=== PATIENT | male | born 1995 | race Hispanic/Latino ===

== ENCOUNTER 2019-12-30 01:26 | Inpatient (IN) | payer SELFPAY ==
[2019-12-30] VITALS (15 sets, daily range): BP systolic 117–154; BP diastolic 70–90; PULSE 90–136; RESP 12–22; TEMP 36.9–37.1; O2SAT 98–100; BMI 28.2
--- NOTE | ~2019-12-30 | XR_ITS ---
EXAMINATION: XR chest 1V portable DATE: 12/30/2019 03:22 INDICATION: Right flank pain. TECHNIQUE: A single frontal view of the chest was obtained. COMPARISON: Chest CT 12/30/2019 FINDINGS: The chest demonstrates clear lungs without pneumonia, pleural effusion, or pneumothorax. Th e heart size is normal. IMPRESSION: 1. No acute cardiopulmonary disease. Reviewed, dictated and finalized at location A.
--- NOTE | ~2019-12-30 | CT_ITS ---
EXAMINATION: CTA chest PE abdomen pel DATE: 12/30/2019 04:51 INDICATION: Chest pain. Right flank pain. Nausea and vomiting. TECHNIQUE: Computed tomography angiography (CTA) of the chest was performed with 100 mL Omnipaque-350 intravenous contrast timed to evaluate the pulmonary arteries. Coronal maximum intensity projection 3D-reconstructions were created by the technologist. Computed tomography (CT) of the abdomen and pelv is was performed with intravenous contrast. Automated exposure control and iterative reconstruction t echnique were employed. The dose-length product was 1781.31 mGy-cm. COMPARISON: None. FINDINGS: CTA chest: The lungs are clear without pneumonia or pleural effusion. The heart size is normal. No pe ricardial effusion. There is no pulmonary embolus. The bones are unremarkable. CT abdomen and pelvis: The liver demonstrates steatosis in the hilum. The gallbladder, spleen, adrena l glands, and kidneys are normal. There is fat stranding around the head of the pancreas and proximal duodenum. The bladder is distended. There are no dilated loops of bowel. The appendix is normal. The re are no pathologically enlarged lymph nodes. There is no free intraperitoneal fluid. The bones are unremarkable. IMPRESSION: 1. Inflammation involving the pancreas and proximal duodenum, which may be secondary to acute interst itial pancreatitis or duodenitis. Correlate with lipase. 2. No pulmonary embolus. Reviewed, dictated and finalized at location A. IMPRESSION: 1. Inflammation involving the pancreas and proximal duodenum, which may be seco ndary to acute interstitial pancreatitis or duodenitis. Correlate with lipase. 2. No pulmonary embolus.
[2019-12-30 02:29] LABS: Basophils Absolute Auto 0.1 K/mm3 (0.0-0.1); Basophils Percent Auto 0.4 % (0.2-1.2); Eosinophils Percent Auto 0.1 % (0-4.4); Hemoglobin 17.8 g/dL (14.0-18.0); Immature Granulocyte Percent A 0.8 % (0-0.5); Lymphocytes Absolute Auto 2.32 K/mm3 (0.9-3.2); Lymphocytes Percent Auto 18.8 % (18.3-44.2); Mean Corpuscular HGB Conc 34.2 g/dl (32-36); Mean Corpuscular Hemoglobin 27.9 pg (26-34); Mean Corpuscular Volume 81.4 fl (80-100); Mean Platelet Volume 12.3 fl (7.4-10.4); Monocytes Absolute Auto 0.7 K/mm3 (0.1-0.6); Monocytes Percent Auto 5.7 % (2.6-8.5); Neutrophils Absolute Auto 9.2 K/mm3 (1.3-6.7); Neutrophils Percent Auto 74.2 % (45.5-73.1); Platelet Count Result 364 k/mm3 (150-375); Red Blood Count 6.39 M/mm3 (4.6-6.20); Red Cell Distribution Width 13.3 % (11.5-14.5); White Blood Count 12.4 K/mm3 (4.5-10.0)
[2019-12-30 02:38] LABS: Add Urine Microscopic? YES; Appearance Urine Clear (Clear); Bilirubin Urine Negative (Negative); Blood Urine 1+ (Negative); Color Urine Straw (Yellow); Glucose Urine UA 3+ mg/dL (Negative); Ketones Urine 2+ mg/dL (Negative); Leukocyte Esterase Ur Negative LEU/UL (Negative); Mucus Urine Rare /lpf; Nitrate Urine Negative (Negative); Protein Urine 3+ mg/dL (Negative); Specific Grav Ur 1.023 (1.001-1.035); Squamous Epithelial Cell Urine Rare /hpf (Few); Urobilinogen Urine Negative mg/dL (<2.0); WBC Urine 0-3 /hpf
--- NOTE | 2019-12-30 02:50 | ECG_ITS ---
Measurements Intervals [place] Rate: 120 P: 74 CO: 129 QRS: 64 QRSD: 98 T: 22 QT: 340 QTc: 481 Interpretive Statements SINUS TACHYCARDIA BORDERLINE ST-T WAVE ABNORMALITY- INFERIOR LEADS BASELINE WANDER- I, II, AVR, AVL, AVF, V1-V6 ABNORMAL ECG Electronically Signed On 12-30-2019 7:14:03 CDT by Ho Hernandez D.O.
--- NOTE | 2019-12-30 02:51 | ED.WEAKNESS ---
HPI - Weakness General Chief complaint: Weakness Stated complaint: sharp rt abd, weakness, vomiting Time Seen by Provider: 12/30/19 02:03 Source: patient Mode of arrival: ambulatory Limitations: clinical condition History of Present Illness HPI Narrative: This patient is a 24 year old male with history of insulin dependent DM who presents for evaluation of right flank pain. Patient states he has had right upper abdominal pain radiating to his back constantly for 2 weeks. His pain has gradually worsened. He denies any exacerbatin or alleviating factors. He states he has been having associated nausea and vomiting but he denies cough, fever or chills. He has history of diabetes but he has not taken any medication in 2 years. Complaint: generalized weakness Related Data Allergies Allergy/AdvReac Type Severity Reaction Status Date / Time No Known Allergies Allergy Unverified 07/24/15 20:18 Review of Systems Review of Systems: All systems reviewed & are unremarkable except as noted in HPI and below Constitutional: Constitutional: Denies chills, Denies fever(s) and Reports weakness ENT: Denies sore throat Cardiovascular: Cardiovascular: Denies chest pain Respiratory: Respiratory: Denies cough and Denies dyspnea Gastrointestinal: Gastrointestinal: Reports abdominal pain, Denies diarrhea, Reports nausea and Reports vomiting Genitourinary: Genitourinary: Denies hematuria and Reports oliguria Musculoskeletal: Musculoskeletal: Reports back pain [facility] Past Medical History Medical History (Updated 12/30/19 @ 06:31 by Ewa Lemons MD) Diabetes mellitus Surgical History Surgical History (Updated 12/30/19 @ 02:56 by Ewa Lemons MD) No pertinent past surgical history Exam Const: General: ill appearing acutely Orientation/consciousness: patient oriented x3 Other: lethargic HENMT: Head: normocephalic and atraumatic Face and sinus: face symmetric Mouth: Yes dry mucous membranes Throat: posterior oropharynx normal, tonsils normal and uvula midline Eyes: Pupils: Equal, round and reactive pupils present EOM: EOMs intact bilaterally Neck: Neck: no lymphadenopathy Chest: Chest palpation & inspection: normal inspection of the chest Resp: Effort & Inspection: normal respiratory effort and no retractions Auscultation: clear to auscultation bilaterally GI: GI Palp: Yes Soft to palpation, Yes Tenderness to palpation present (GI) (epigastric), No Guarding due to palpation present (GI), No Rigid due to palpation and No Hernia present Back/Spine/Pelvis: Back: no CVA tenderness Skin: Rashes: no rashes Neuro: General: patient oriented x3 and moves all extremities Course Course Emergency Course: Patient presented with right flank and DKA. He was stuck multiple times due lab stating blood rejected . Print out labs sent to me appear consistent with DKA and pancreatitis. Consultations Consultation #1: I have discsused case with Dr. Jeo who accepts to ICU for DKA Date: 12/30/19 Time: 05:53 Consultation #2: I discussed case with Dr. Angeles who accepts to ICU for DKA Date: 12/30/19 Time: 06:22 Vital Signs Vital signs: Vital Signs Temperature 98.4 F 12/30/19 01:31 Pulse Rate 136 H 12/30/19 01:31 Respiratory Rate 12/30/19 01:31 Blood Pressure 130/77 12/30/19 01:31 Pulse Oximetry 100 12/30/19 01:31 Temperature 98.4 F 12/30/19 01:31 Pulse Rate 104 H 12/30/19 07:21 Respiratory Rate 12/30/19 07:21 Blood Pressure 126/85 12/30/19 07:21 Pulse Oximetry 100 12/30/19 07:21 MDM - Weakness Lab Data Attestation: I reviewed the patient's lab results. Lab results narrative: Labs faxed show lipase of 1164, glucose 321, potassium 5.0 , sodium 136, Chloride 107, CO2 less than 5. Result diagrams: 12/30/19 03:20 12/30/19 04:40 Labs: Lab Results 12/30/19 12/30/19 12/30/19 Range/Units 02:11 02:11 03:06 WBC 12.4 H (4.5-10.0)
[2019-12-30 03:09] LABS: Glucose Point of Care 293 (65-105)
[2019-12-30 03:12] LABS: Alveolar/Arterial O2 Gradient 9.1 mmHg; Base Excess ABG -20.6 mEq/l (+/-2.0); Carboxyhemoglobin 0.8 % THb (0-2.0); Fractional Inspired Oxygen 21 %; HCO3 ABG 5.2 mEq/l (22.0-26.0); Methemoglobin ABG 0.4 %THb (0-1.5); Oxygen Content ABG 22.1 %vol (16.0-22.0); Oxygen Saturation ABG 97.7 % (95.0-100.0); Oxyhemoglobin 96.8 % THb (90.0-100.0); PO2 ABG 123.4 mmHg (80.0-100.0); PO2 FiO2 Ratio Arterial Blood 5.88 %; Total Hemoglobin 16.1 g/dL (12.0-18.0)
[2019-12-30] MEDS: LACTATED RINGERS 1,000 ML 999 ML IV CONT ×4 (03:16→09:15)
[2019-12-30] MEDS: MORPHINE SULFATE 4 MG/ML INJ IV PUSH (03:16)
[2019-12-30 03:17] LABS: Device ROOM AIR; Modified Allen's Test Pass; PCO2 ABG 14.4 mmHg (35.0-45.0); Site Drawn RIGHT RADIAL; pH ABG 7.174 (7.350-7.450)
[2019-12-30] MEDS: ONDANSETRON INJ 4 MG/2 ML VIAL IV PUSH ×2 (03:17→11:09)
--- NOTE | 2019-12-30 03:33 | PC.NURSE ---
Addendum entered by Nallely Atkinson 12/30/19 03:34: NOTIFIED OF THIS. ASKING FOR PRINT OUT OF RESULTS TO TEST. Original Note: PT BLOOD TEST REJECTED THREE TIMES. PHLEBOTOMY ALSO CAME UP TO DRAW AND WAS UNSUCCESSFUL AT COLLECTING SPECIMEN.
[2019-12-30 03:43] LABS: Lactic Acid Reflex 1.5 mmol/L (0.7-2.1)
--- NOTE | 2019-12-30 04:04 | PC.NURSE ---
PT BLOOD SPECIMEN REJECTED AGAIN. NOTIFIED.
[2019-12-30 04:10] LABS: Basophils Absolute Auto 0.1 K/mm3 (0.0-0.1); Basophils Percent Auto 0.4 % (0.2-1.2); Eosinophils Percent Auto 0.1 % (0-4.4); Hematocrit 48.3 % (42.0-52.0); Hemoglobin 16.9 g/dL (14.0-18.0); Immature Granulocyte Percent A 0.8 % (0-0.5); Lymphocytes Absolute Auto 1.57 K/mm3 (0.9-3.2); Lymphocytes Percent Auto 13.3 % (18.3-44.2); Mean Corpuscular Hemoglobin 27.9 pg (26-34); Mean Corpuscular Volume 79.8 fl (80-100); Mean Platelet Volume 12.2 fl (7.4-10.4); Monocytes Absolute Auto 0.6 K/mm3 (0.1-0.6); Monocytes Percent Auto 5.3 % (2.6-8.5); Neutrophils Absolute Auto 9.4 K/mm3 (1.3-6.7); Neutrophils Percent Auto 80.1 % (45.5-73.1); Platelet Count Result 384 k/mm3 (150-375); Red Blood Count 6.05 M/mm3 (4.6-6.20); Red Cell Distribution Width 13.3 % (11.5-14.5); White Blood Count 11.8 K/mm3 (4.5-10.0)
[2019-12-30 04:10] LABS: INR 1.1; Prothrombin Time 13.5 Seconds (11.1-14.7)
[2019-12-30 04:11] LABS: Partial Thromboplastin Time 30.3 SECONDS (22.3-36.8)
[2019-12-30 04:14] LABS: Hemoglobin A1C > 14.0 % (<5.7)
[2019-12-30 04:42] LABS: Estimated CRCL calculation 187 ml/min; Estimated Glomerular Filt Rate > 60
[2019-12-30 05:10] LABS: Glucose Point of Care 276 (65-105)
[2019-12-30] MEDS: INSULIN HUMAN REGULAR (*BKC) 100 UNITS in SODIUM CHLORIDE 0.9% IV 99 ML IV CONT (05:15)
[2019-12-30 06:29] LABS: Glucose Point of Care 259 (65-105)
[2019-12-30] MEDS: KCL 20 MEQ/D5/0.45% SOD CHL 1,000 ML 150 ML IV CONT (07:46)
[2019-12-30 07:54] LABS: Glucose Point of Care 192 (65-105)
--- NOTE | 2019-12-30 08:09 | ADMGEN ---
This patient, Vick Law, was admitted to Intensive Care Unit-11. Patient/family oriented to hospital policies and general routines including ID bracelet, bed and alarms, visiting hours, pain management, procedures, bathroom and other care routines, personal items, smoking policy, room service/diet, and visiting hours. Valuables list has been completed. Information on how to activate the Rapid Response Team has been discussed. Patient/Family are encouraged to report perceived risks to care and to ask questions if they do not understand what they are told or what they should do.
[2019-12-30] MEDS: SODIUM CHLORIDE 0.9% IV 1,000 ML 200 ML IV CONT (08:41)
[2019-12-30 09:12] LABS: Glucose Point of Care 217 (65-105)
[2019-12-30 10:08] LABS: Glucose Point of Care 224 (65-105)
[2019-12-30 11:06] LABS: Glucose Point of Care 187 (65-105)
--- NOTE | 2019-12-30 11:43 | PM.IMHP ---
H&P: HPI History of Present Illness Chief complaint: DKA,PANCREATITIS Narrative: Vick Law is a 24 year old male with known type 1 diabetes has been taking 40 units of long-acting insulin daily but not checking his blood sugars routinely and not following a diabetic diet. For the past 2 weeks he has been having intermittent right flank to upper quadrant epigastric pain radiating through to his back. Pain was [id number] initially. Became moderate to severe. Intermittent nausea vomiting. Worse with eating. Not worse with activity. No fevers chills or sweats. No cough or congestion. No recent travel. Because the pain worsen on the evening of 12/28 without remitting and with more persistent nausea vomiting, he presented to the emergency department. 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, 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 Gender identity (if verbalized by the patient): Male Spiritual care concerns: No Meds Home Medications and Allergies Allergies Allergy/AdvReac Type Severity Reaction Status Date / Time No Known Allergies Allergy Unverified 07/24/15 20:18 Vital Signs Vital Signs - 24 hr 12/30/19 01:31 12/30/19 03:16 12/30/19 04:15 Temperature 98.4 F Pulse Rate 136 H 122 H 101 H Respiratory Rate 20 22 H 20 Blood Pressure 130/77 137/89 130/76 Pulse Oximetry 100 100 99 12/30/19 05:34 12/30/19 06:07 12/30/19 06:54 Temperature Pulse Rate 111 H 114 H 103 H Respiratory Rate 20 20 20 Blood Pressure 137/80 117/70 133/83 Pulse Oximetry 100 100 98 12/30/19 07:21 12/30/19 08:00 12/30/19 10:00 Temperature 98.5 F Pulse Rate 104 H 114 H 98 Respiratory Rate 20 18 18 Blood Pressure 126/85 135/85 129/74 Pulse Oximetry 100 100 100 Exam Narrative: Exam Narrative: HEENT: EOMI, PERRL, sclerae nonicteric, pharyngeal mucosa pink and intact NECK: No JVD, adenopathy, or thyromegaly CHEST: Clear to auscultation. Normal effort. HEART: NL S1/S2, regular, no murmur ABDOMEN: BS+, soft,TENDER EPIGASTRIUM, no mass EXTREMITIES: No cyanosis, edema, or clubbing NEUROLOGIC: CN intact and symmetric to inspection. MUSCULOSKELETAL: Tone and strength symmetric. PSYCH: Alert. Oriented to person, place, and time. H&P: Results Labs Labs: Short CBC 12/30/19 12/30/19 Range/Units 02:11 03:20 WBC 12.4 H 11.8 H (4.5-10.0) K/mm3 Hgb 17.8 16.9 (14.0-18.0) g/dL Hct 52.0 48.3 (42.0-52.0) % Plt Count 364 384 H (150-375) k/mm3 BMP 12/30/19 04:40 Creatinine 0.50 Urine 12/30/19 Range/Units 02:11 Urine Color Straw (Yellow) Urine Appearance Clear (Clear) Urine pH 6.0 (5.0-9.0) Ur Specific [place] 1.023 (1.001-1.035) Urine Protein 3+ H (Negative) mg/dL Urine Glucose (UA) 3+ H (Negative) mg/dL Assessment and Plan Assessment and plan (1) DKA (diabetic ketoacidoses): Qualifiers: Diabetes mellitus complication detail: without coma Diabetes mellitus type: type 1 Qualified Code(s): E10.10 - Type 1 diabetes mellitus with ketoacidosis without coma Code(s): E11.10 - Type 2 diabetes mellitus with ketoacidosis without coma Status: Acute Assessment and Pl
[2019-12-30 12:05] LABS: Glucose Point of Care 184 (65-105)
--- NOTE | 2019-12-30 12:35 | WPDCNINT ---
Assessment and Plan Assessment and plan (1) DKA (diabetic ketoacidoses): Qualifiers: Diabetes mellitus complication detail: without coma Diabetes mellitus type: type 1 Qualified Code(s): E10.10 - Type 1 diabetes mellitus with ketoacidosis without coma Code(s): E11.10 - Type 2 diabetes mellitus with ketoacidosis without coma Status: Acute Assessment and Plan: patient presented with nausea, vomiting,Abdominal pain. Was found to have elevated blood sugars, elevated beta hydroxybutyrate, positive urine ketones. Patient with metabolic acidosis, was diagnosed with DKA, given adequate fluids and started insulin infusion. - Hemoglobin A1c > 14.0. Patient has a history of diabetes but has not taken his medications in over 2 years. - Continue insulin infusion per DKA protocol, serial BMPs - will transition to long-acting insulin and sliding scale insulin once anion gap closes. - steam table worker and collator hand to be consulted (2) Acute pancreatitis: Qualifiers: Acute pancreatitis complication: no infection or necrosis Pancreatitis type: unspecified pancreatitis type Qualified Code(s): K85.90 - Acute pancreatitis without necrosis or infection, unspecified Code(s): K85.90 - Acute pancreatitis without necrosis or infection, unspecified Status: Acute Assessment and Plan: patient with acute pancreatitis, diagnosed on CT scan of the abdomen and pelvis on 01/16/2020 - lipase also elevated - patient given additional IV fluid bolus upon arrival to the ICU - increased IV fluids 200 mL/hour - will trend lipase level and urine output (3) Dehydration: Code(s): E86.0 - Dehydration Status: Acute Assessment and Plan: severely dehydrated secondary to DKA and pancreatitis - patient aggressively rehydrated - continue maintenance IV fluids - NPO for now (4) DVT prophylaxis: Code(s): Z29.9 - Encounter for prophylactic measures, unspecified Status: Acute Assessment and Plan: DVT prophylaxis: Lovenox stress ulcer prophylaxis: Protonix (5) History of diabetes mellitus: Code(s): Z86.39 - Personal history of other endocrine, nutritional and metabolic disease Status: Acute Assessment and Plan: Patient with history of diabetes, has not taken his medications over 2 years. - Will have film cutter evaluate the patient Additional Plan discussed with patient updated with his condition and plan of care. I did updated with the lab and radiology reports. He was not too happy to hear about his A1c I did tell him that he would be transition to insulin shots after he is off the insulin infusion. Code status: Full code Critical care time spent: 44 minutes Due to a high probability of clinically significant, life threatening deterioration, the patient required my highest level of preparedness to intervene emergently and I personally spent this critical care time directly and personally managing the patient. This critical care time included obtaining a history; examining the patient; pulse oximetry; ordering and review of studies; arranging urgent treatment with development of a management plan; evaluation of patient's response to treatment; frequent reassessment; and discussions with other providers. It was exclusive of separately billable procedures and treating other patients and teaching time. Please see Assessment and Plan section and the rest of the note for further information on patient assessment and treatment Bar Waiter/Waitress Consult Note Consult date: 12/30/19 Time Seen: 07:41 Reason for consult: DKA, pancreatitis, dehydration HPI: Vick Law is a 24 year old male past medical history of insulin-dependent diabetes Presented to the ED for evaluation of right flank pain. Patient states that he has been having right upper quadrant pain in the back for 2 weeks. Patient stated that the pain has worsened with na
[2019-12-30 12:41] LABS: Alanine Aminotransferase 15 U/L (4-50); Albumin Level 3.4 g/dL (3.5-5.1); Alkaline Phosphatase 160 U/L (38-126); Aspartate Amino Transferase 14 U/L (17-59); Bilirubin,Total 0.4 mg/dL (0.2-1.3); Blood Urea Nitrogen 6 mg/dL (9-20); Calcium 8.4 mg/dL (8.4-10.2); Carbon Dioxide 12 mmol/L (22-30); Chloride 116 mmol/L (98-107); Estimated CRCL calculation 187 ml/min; Estimated Glomerular Filt Rate > 60; Glucose 176 mg/dL (75-110); Lipase 1667 U/L (23-300); Magnesium 1.7 mg/dL (1.6-2.3); Potassium 3.6 mmol/L (3.4-5.0); Sodium 138 mmol/L (137-145)
[2019-12-30] MEDS: KCL 20 MEQ/D5/0.45% SOD CHL 1,000 ML 200 ML IV CONT ×2 (12:59→18:18)
[2019-12-30 13:09] LABS: Glucose Point of Care 163 (65-105)
[2019-12-30 14:11] LABS: Glucose Point of Care 144 (65-105)
[2019-12-30] MEDS: PANTOPRAZOLE SODIUM IV 40 MG VIAL IV PUSH (14:18)
[2019-12-30] MEDS: ENOXAPARIN 40 MG/0.4 ML SYRINGE SUB-Q (14:18)
[2019-12-30 15:02] LABS: Glucose Point of Care 147 (65-105)
[2019-12-30 16:10] LABS: Glucose Point of Care 157 (65-105)
[2019-12-30 16:24] LABS: Blood Urea Nitrogen 6 mg/dL (9-20); Calcium 8.5 mg/dL (8.4-10.2); Carbon Dioxide 16 mmol/L (22-30); Chloride 113 mmol/L (98-107); Estimated CRCL calculation 227 ml/min; Estimated Glomerular Filt Rate > 60; Glucose 156 mg/dL (75-110); Potassium 3.6 mmol/L (3.4-5.0); Sodium 137 mmol/L (137-145)
[2019-12-30 17:29] LABS: Glucose Point of Care 152 (65-105)
[2019-12-30 18:41] LABS: Glucose Point of Care 122 (65-105)
[2019-12-30 19:26] LABS: Glucose Point of Care 135 (65-105)
[2019-12-30 20:03] LABS: Glucose Point of Care 146 (65-105)
[2019-12-30 21:00] LABS: Glucose Point of Care 149 (65-105)
[2019-12-30 21:11] LABS: Blood Urea Nitrogen 6 mg/dL (9-20); Calcium 8.4 mg/dL (8.4-10.2); Carbon Dioxide 17 mmol/L (22-30); Chloride 115 mmol/L (98-107); Estimated CRCL calculation 227 ml/min; Estimated Glomerular Filt Rate > 60; Glucose 148 mg/dL (75-110); Potassium 3.5 mmol/L (3.4-5.0); Sodium 136 mmol/L (137-145)
[2019-12-30 22:06] LABS: Glucose Point of Care 139 (65-105)
[2019-12-30 23:02] LABS: Glucose Point of Care 144 (65-105)
[2019-12-31] VITALS (11 sets, daily range): BP systolic 102–145; BP diastolic 70–90; PULSE 90–102; RESP 16–20; TEMP 36.9–37.1; O2SAT 100
[2019-12-31 00:05] LABS: Glucose Point of Care 173 (65-105)
[2019-12-31] MEDS: KCL 20 MEQ/D5/0.45% SOD CHL 1,000 ML 200 ML IV CONT (00:23)
[2019-12-31] MEDS: INSULIN HUMAN REGULAR (*BKC) 100 UNITS in SODIUM CHLORIDE 0.9% IV 99 ML 6.8 UNITS IV CONT (00:23)
[2019-12-31 00:56] LABS: Blood Urea Nitrogen 6 mg/dL (9-20); Calcium 8.5 mg/dL (8.4-10.2); Carbon Dioxide 18 mmol/L (22-30); Chloride 112 mmol/L (98-107); Estimated CRCL calculation 227 ml/min; Estimated Glomerular Filt Rate > 60; Glucose 162 mg/dL (75-110); Potassium 3.3 mmol/L (3.4-5.0); Sodium 138 mmol/L (137-145)
[2019-12-31] MEDS: SODIUM CHLORIDE 0.9% IV 1,000 ML 100 ML IV CONT ×2 (01:29→09:30)
[2019-12-31] MEDS: INSULIN DETEMIR 100 UNITS/ML 25 UNITS SUB-Q ×2 (01:29→07:59)
[2019-12-31 01:33] LABS: Glucose Point of Care 150 (65-105)
[2019-12-31 04:49] LABS: Basophils Percent Auto 0.4 % (0.2-1.2); Eosinophils Absolute Auto 0.1 K/mm3 (0-0.3); Hemoglobin 12.3 g/dL (14.0-18.0); Immature Granulocyte Absolute 0.04 K/mm3 (0.00-0.031); Immature Granulocyte Percent A 0.4 % (0-0.5); Lymphocytes Absolute Auto 2.68 K/mm3 (0.9-3.2); Lymphocytes Percent Auto 28.4 % (18.3-44.2); Mean Corpuscular HGB Conc 34.2 g/dl (32-36); Mean Corpuscular Hemoglobin 27.2 pg (26-34); Mean Corpuscular Volume 79.5 fl (80-100); Mean Platelet Volume 11.4 fl (7.4-10.4); Monocytes Absolute Auto 0.7 K/mm3 (0.1-0.6); Neutrophils Absolute Auto 5.9 K/mm3 (1.3-6.7); Neutrophils Percent Auto 62.8 % (45.5-73.1); Platelet Count Result 258 k/mm3 (150-375); Red Blood Count 4.53 M/mm3 (4.6-6.20); Red Cell Distribution Width 13.7 % (11.5-14.5); White Blood Count 9.4 K/mm3 (4.5-10.0)
[2019-12-31 05:04] LABS: Alanine Aminotransferase 13 U/L (4-50); Albumin Level 3.1 g/dL (3.5-5.1); Alkaline Phosphatase 134 U/L (38-126); Aspartate Amino Transferase 21 U/L (17-59); Bilirubin,Total 0.5 mg/dL (0.2-1.3); Blood Urea Nitrogen 6 mg/dL (9-20); Calcium 8.3 mg/dL (8.4-10.2); Carbon Dioxide 13 mmol/L (22-30); Chloride 112 mmol/L (98-107); Estimated CRCL calculation 227 ml/min; Estimated Glomerular Filt Rate > 60; Glucose 194 mg/dL (75-110); Lipase 463 U/L (23-300); Magnesium 1.6 mg/dL (1.6-2.3); Potassium 3.3 mmol/L (3.4-5.0); Sodium 136 mmol/L (137-145)
[2019-12-31 05:32] LABS: Glucose Point of Care 194 (65-105)
[2019-12-31] MEDS: PANTOPRAZOLE SODIUM IV 40 MG VIAL IV PUSH (08:00)
[2019-12-31] MEDS: ENOXAPARIN 40 MG/0.4 ML SYRINGE SUB-Q (08:00)
[2019-12-31 08:10] LABS: Glucose Point of Care 189 (65-105)
[2019-12-31] MEDS: LACTATED RINGERS 1,000 ML 999 ML IV CONT (08:10)
[2019-12-31 08:50] LABS: Blood Urea Nitrogen 5 mg/dL (9-20); Calcium 8.3 mg/dL (8.4-10.2); Carbon Dioxide 14 mmol/L (22-30); Chloride 111 mmol/L (98-107); Estimated CRCL calculation 227 ml/min; Estimated Glomerular Filt Rate > 60; Glucose 196 mg/dL (75-110); Potassium 3.3 mmol/L (3.4-5.0); Sodium 136 mmol/L (137-145)
[2019-12-31] MEDS: MAGNESIUM SULF 2 GM/WATER 50ML 2 GM/50 ML BAG IVPB (09:22)
[2019-12-31] MEDS: POTASSIUM PHOS,M-BASIC-D-BASIC 20 MMOL in SODIUM CHLORIDE 0.9% IV 250 ML 62.5 MMOL IVPB (09:23)
--- NOTE | 2019-12-31 10:17 | PM.DS ---
DS: Summary Hospital Course Reason for hospitalization: DKA Hospital Course: Presented in DKA. No mointoring sugars and sharing his mother's insulin. Also had elevated amylase and findings c/w acute pancreatitis. Did well on DKA protocol. Transitioned to split dose Relion insulin for cost savings. Tolerated diet. To f/u with [facility]. Status at Discharge Functional status at discharge: independent ambulation Overall status at discharge: patient is not back to baseline Time Spent with Patient Time attestation: Total time spent providing and/or coordinating discharge services: Time spent: Greater than 30 minutes Exam Narrative: Exam Narrative: HEENT: EOMI, PERRL, sclerae nonicteric, pharyngeal mucosa pink and intact NECK: No JVD, adenopathy, or thyromegaly CHEST: Clear to auscultation. Normal effort. HEART: NL S1/S2, regular, no murmur ABDOMEN: BS+, soft,TENDER EPIGASTRIUM, no mass EXTREMITIES: No cyanosis, edema, or clubbing NEUROLOGIC: CN intact and symmetric to inspection. MUSCULOSKELETAL: Tone and strength symmetric. PSYCH: Alert. Oriented to person, place, and time. DS: Data Data Completed and Pending Labs on day of discharge: Labs from last 24 hours 12/31/19 12/31/19 12/31/19 07:58 07:56 05:29 WBC RBC Hgb Hct MCV MCH MCHC RDW Plt Count MPV Immature Gran % (Auto) Neut % (Auto) Lymph % (Auto) Long % (Auto) Eos % (Auto) Baso % (Auto) Lymph # (Auto) Long # (Auto) Eos # (Auto) Baso # (Auto) Abs Immat Gran (auto) Absolute Neuts (auto) Absolute Nucleated RBC Nucleated RBC % Sodium 136 L Potassium 3.3 L Chloride 111 H Carbon Dioxide 14 L BUN 5 L Creatinine 0.40 L Estim Creat Clear Calc 227 Estimated GFR > 60 Glucose 196 H POC Capillary Glucose 189 H 194 H Calcium 8.3 L Phosphorus Magnesium Total Bilirubin AST ALT Alkaline Phosphatase Total Protein Albumin Lipase 12/31/19 12/31/19 12/31/19 04:27 04:27 01:28 WBC 9.4 RBC 4.53 L Hgb 12.3 L D Hct 36.0 L MCV 79.5 L MCH 27.2 MCHC 34.2 RDW 13.7 Plt Count 258 MPV 11.4 H Immature Gran % (Auto) 0.4 Neut % (Auto) 62.8 Lymph % (Auto) 28.4 Long % (Auto) 7.0 Eos % (Auto) 1.0 Baso % (Auto) 0.4 Lymph # (Auto) 2.68 Long # (Auto) 0.7 H Eos # (Auto) 0.1 Baso # (Auto) 0.0 Abs Immat Gran (auto) 0.04 H Absolute Neuts (auto) 5.9 Absolute Nucleated RBC 0.0 Nucleated RBC % 0.0 Sodium 136 L Potassium 3.3 L Chloride 112 H Carbon Dioxide 13 L BUN 6 L Creatinine 0.40 L Estim Creat Clear Calc 227 Estimated GFR > 60 Glucose 194 H POC Capillary Glucose 150 H Calcium 8.3 L Phosphorus 2.0 L Magnesium 1.6 Total Bilirubin 0.5 AST 21 ALT 13 Alkaline Phosphatase 134 H Total Protein 7.0 Albumin 3.1 L Lipase 463 H 12/31/19 12/31/19 12/30/19 00:28 00:03 22:59 WBC RBC Hgb Hct MCV MCH MCHC RDW Plt Count MPV Immature Gran % (Auto) Neut % (Auto) Lymph % (Auto) Long % (Auto) Eos % (Auto) Baso % (Auto) Lymph # (Auto) Long # (Auto) Eos # (Auto) Baso # (Auto) Abs Immat Gran (auto) Absolute Neuts (auto) Absolute Nucleated RBC Nucleated RBC % Sodium 138 Potassium 3.3 L Chloride 112 H Carbon Dioxide 18 L BUN 6 L Creatinine 0.40 L Estim Creat Clear Calc 227 Estimated GFR > 60 Glucose 162 H POC Capillary Glucose 173 H 144 H Calcium 8.5 Phosphorus Magnesium Total Bilirubin AST ALT Alkaline Phosphatase Total Protein Albumin Lipase 12/30/19 12/30/19 12/30/19 21:57 20:53 20:53 WBC RBC Hgb Hct MCV MCH MCHC RDW Plt Count MPV Immature Gran % (Auto) Neut % (Auto) Lymph % (Auto) Long % (Auto) Eos % (Auto
--- NOTE | 2019-12-31 11:40 | WPDINTPN ---
Progress Note: A&P Assessment and Plan (1) DKA (diabetic ketoacidoses): Qualifiers: Diabetes mellitus complication detail: without coma Diabetes mellitus type: type 1 Qualified Code(s): E10.10 - Type 1 diabetes mellitus with ketoacidosis without coma Code(s): E11.10 - Type 2 diabetes mellitus with ketoacidosis without coma Status: Acute Assessment and Plan: patient presented with nausea, vomiting,Abdominal pain. Was found to have elevated blood sugars, elevated beta hydroxybutyrate, positive urine ketones. Patient with metabolic acidosis, was diagnosed with DKA, given adequate fluids and started insulin infusion. - Hemoglobin A1c > 14.0. Patient has a history of diabetes but has not taken his medications in over 2 years. - Patient was transition to long-acting insulin and sliding scale insulin - hematology nurse educator and operations supervisor will be evaluating the patient (2) Acute pancreatitis: Qualifiers: Acute pancreatitis complication: no infection or necrosis Pancreatitis type: unspecified pancreatitis type Qualified Code(s): K85.90 - Acute pancreatitis without necrosis or infection, unspecified Code(s): K85.90 - Acute pancreatitis without necrosis or infection, unspecified Status: Acute Assessment and Plan: patient with acute pancreatitis, diagnosed on CT scan of the abdomen and pelvis on 01/16/2020 - lipase trending down - patient given additional IV fluid bolus this morning - patient tolerating diet, no epigastric tenderness or abdominal tenderness. (3) Dehydration: Code(s): E86.0 - Dehydration Status: Acute Assessment and Plan: RESOLVED: initially admitted with severe dehydration secondary to DKA and pancreatitis - patient aggressively rehydrated - continue maintenance IV fluids (4) DVT prophylaxis: Code(s): Z29.9 - Encounter for prophylactic measures, unspecified Status: Acute Assessment and Plan: DVT prophylaxis: Lovenox stress ulcer prophylaxis: Protonix (5) History of diabetes mellitus: Code(s): Z86.39 - Personal history of other endocrine, nutritional and metabolic disease Status: Acute Assessment and Plan: Patient with history of diabetes, has not taken his medications over 2 years. - Will have hematology nurse educator evaluate the patient - hemoglobin A1c > 14.0 Additional Plan discussed with patient updated with his condition and plan of care. I did discuss with him regarding aggressive diabetic management. Code status: Full code Critical care time spent: 31 minutes Due to a high probability of clinically significant, life threatening deterioration, the patient required my highest level of preparedness to intervene emergently and I personally spent this critical care time directly and personally managing the patient. This critical care time included obtaining a history; examining the patient; pulse oximetry; ordering and review of studies; arranging urgent treatment with development of a management plan; evaluation of patient's response to treatment; frequent reassessment; and discussions with other providers. It was exclusive of separately billable procedures and treating other patients and teaching time. Please see Assessment and Plan section and the rest of the note for further information on patient assessment and treatment Subjective Date/time seen: 12/31/19 11:40 Reason for consult: DKA, pancreatitis, dehydration 12/31/2019: Patient was transition to long-acting insulin and sliding scale insulin overnight. He is tolerating p.o. diet, hemodynamically stable, on room air with good O2 sats. Urine output has been adequate. Patient denies any chest pain, shortness of breath abdominal pain, nausea vomiting at this time. Review of Systems Review of Systems: All systems reviewed & are unremarkable except as noted in HPI and below Exam Const: General: comfort
[2019-12-31 11:58] LABS: Glucose Point of Care 223 (65-105)
[2019-12-31] MEDS: INSULIN ASPART (*BKC) 100 UNITS/ML SUB-Q (12:09)
== END 2019-12-31 13:40 | disposition home or self-care (01) | DRG 282 ==
LOC: ANHED 06:31 → ANHICU 12-31 10:18
PROVIDERS: Internal Medicine; Admitting Provider Family Medicine; Emergency Provider General Practice; Visit Provider Internal Medicine
DX: K85.90 Acute pancreatitis without necrosis or infection, unspecified (principal); E10.10 Type 1 diabetes mellitus with ketoacidosis without coma; E86.0 Dehydration
CPT/HCPCS: 36415; 36600; 71045; 71275; 74177; 80048; 80053; 81001; 82010; 82375; 82805; 82948; 83036; 83050; 83605; 83690; 83735; 84100; 85025; 85610; 85730; 93005; 96361; 96365; 96366; 96375; 99291; C9113; J1650; J1815; J2270; J2405; J3475; J3480; J7030; J7050; J7120; Q9967

== ENCOUNTER 2023-07-25 20:45 | Emergency (ER) | payer OTHER, SELFPAY ==
[2023-07-25 20:52] VITALS: BP 118/72; PULSE 103; RESP 19; TEMP 38.6; O2SAT 98
--- NOTE | 2023-07-25 21:51 | ED.GENADULT ---
HPI - General Adult General Chief complaint: Upper Respiratory Infection Stated complaint: headache, cough Time Seen by Provider: 07/25/23 21:35 History of Present Illness HPI narrative: Patient is a 28-year-old male who presents ER with fever. Symptoms began yesterday evening. Associated with body aches. Last Tylenol was 2 hours ago for fever. He has tried NyQuil without improvement. No known sick contacts. Denies sinus congestion or sore throat. Mild headache. He does have occasional cough. He has been eating and drinking without Issue. Related Data Allergies Allergy/AdvReac Type Severity Reaction Status Date / Time No Known Allergies Allergy Unverified 07/25/23 20:46 Review of Systems Review of Systems: All systems reviewed & are unremarkable except as noted in HPI and below Constitutional: Constitutional: Reports chills, Reports fatigue and Reports fever(s) ENT: Denies nasal congestion and Denies sore throat Cardiovascular: Cardiovascular: Reports no additional cardiovascular complaints Respiratory: Respiratory: Reports cough, Denies dyspnea and Denies wheezing Gastrointestinal: Gastrointestinal: Reports no additional gastrointestinal complaints PMFSH Past Medical History Medical History (Updated 07/25/23 @ 22:51 by Yoni Huizar MD) Diabetes mellitus Surgical History Surgical History No pertinent past surgical history Family History Family History Mother Diabetes mellitus Father Unknown family medical history Social History Social History (Updated 12/30/19 @ 11:50 by Ayaan Bermudez MD) Smoking status: Never smoker Alcohol intake: never Substance use: never Substance use type: does not use Living arrangements: with family Occupation/Education: occupation 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 HEAD: Normocephalic, atraumatic. ENT: Mucous membranes moist. normal-appearing posterior oropharynx. NECK: Supple. CHEST: Clear to auscultation. No respiratory distress. HEART: Tachycardic and regular. Normal peripheral pulses. EXTREMITIES: Normal range of motion. No edema. SKIN: Warm, dry, no rash. NEURO: Alert and oriented x3. PSYCH: Normal mood and affect. Course Course Emergency Course: Patient informed of results. Hydrated and received Toradol. Discussed need for Tamiflu the patient verbalized understanding. Vital Signs Vital signs: Vital Signs Temperature 101.5 F H 07/25/23 20:52 Pulse Rate 103 H 07/25/23 20:52 Respiratory Rate 19 07/25/23 20:52 Blood Pressure 118/72 07/25/23 20:52 Pulse Oximetry 98 07/25/23 20:52 Oxygen Delivery Room Air 07/25/23 20:52 Temperature 101.5 F H 07/25/23 20:52 Pulse Rate 103 H 07/25/23 20:52 Respiratory Rate 19 07/25/23 20:52 Blood Pressure 118/72 07/25/23 20:52 Pulse Oximetry 97 07/25/23 22:12 Oxygen Delivery Room Air 07/25/23 22:12 Medical Decision Making Vital Signs Vital Signs: Vital Signs Temperature 101.5 F H 07/25/23 20:52 Pulse Rate 103 H 07/25/23 20:52 Respiratory Rate 19 07/25/23 20:52 Blood Pressure 118/72 07/25/23 20:52 Pulse Oximetry 98 07/25/23 20:52 Oxygen Delivery Room Air 07/25/23 20:52 Temperature 101.5 F H 07/25/23 20:52 Pulse Rate 103 H 07/25/23 20:52 Respiratory Rate 19 07/25/23 20:52 Blood Pressure 118/72 07/25/23 20:52 Pulse Oximetry 97 07/25/23 22:12 Oxygen Delivery Room Air 07/25/23 22:12 Lab Data Labs: Lab Results 07/25/23 Range/Units 22:02 Influenza A (RT-PCR) Positive A (Negative) Influenza B (RT-PCR) Negative (Negative) SARS-CoV-2 RNA (RT-PCR)
[2023-07-25] MEDS: SODIUM CHLORIDE 0.9% IV 1,000 ML 999 ML IV CONT (21:58)
[2023-07-25] MEDS: KETOROLAC 30 MG/ML VIAL (*BKC) IV PUSH (21:58)
[2023-07-25 22:12] VITALS: O2SAT 97
[2023-07-25 22:45] LABS: Influenza A QL RT-PCR Positive (Negative); Influenza B QL RT-PCR Negative (Negative); SARS-CoV-2 RNA PCR Negative (Negative)
[2023-07-25 23:00] VITALS: TEMP 37.2
== END 2023-07-25 23:01 | disposition home or self-care (01) ==
PROVIDERS: Emergency Provider Emergency Medicine
DX: J10.1 Influenza due to other identified influenza virus with other respiratory manifestations (principal); E11.9 Type 2 diabetes mellitus without complications; Z20.822 Contact with and (suspected) exposure to COVID-19; Z79.4 Long term (current) use of insulin
CPT/HCPCS: 87636; 96361; 96374; 99284; J1885; J7030

== ENCOUNTER 2023-09-18 16:13 | Inpatient (IN) | payer OTHER, MEDICAID, SELFPAY ==
--- NOTE | ~2023-09-18 | XR_ITS ---
EXAMINATION: XR foot LT min 3V DATE: 09/18/2023 18:48 INDICATION: Diabetic foot wound at the left foot TECHNIQUE: Dorsoplantar, oblique and lateral views of the left foot were obtained. COMPARISON: None. FINDINGS: Alignment is normal. No fracture. Joint spaces are normal. No cortical erosions or periosteal reactio n. There is soft tissue swelling at the dorsal, plantar and lateral aspects of the forefoot. No evide nt soft tissue gas or radiopaque foreign bodies. Vascular calcifications along the posterior tibial a rtery. IMPRESSION: 1. No acute osseous abnormality or radiopaque foreign bodies. Reviewed, dictated and finalized at location A. NESS TRAINER
--- NOTE | ~2023-09-18 | XR_ITS ---
EXAMINATION: XR chest 2V Exam Date/Time: 09/23/2023 14:40 PRINCIPAL ANDROID DEVELOPER HISTORY: cough Comparison: 12/30/2019. RESULT: Lines, tubes, and devices: Left chest PICC, terminating in the right atrium. Lungs and pleura: Subsegmental posterior basilar opacities with mild costophrenic angle blunting. Cardiomediastinal silhouette: Stable. Other: No acute osseous or upper abdominal finding. IMPRESSION: Subsegmental atelectasis/consolidation. Possible small bilateral effusions. Left chest PICC terminati ng in the right atrium. Reviewed, dictated and finalized at location K. CIPAL ANDROID DEVELOPER IMPRESSION: Subsegmental atelectasis/consolidation. Possible small bilateral effusions. Lef t chest PICC terminating in the right atrium.
--- NOTE | ~2023-09-18 | XR_ITS ---
EXAMINATION: XR chest 1V portable INDICATION: Difficulty flushing PICC TECHNIQUE: Portable AP chest at 1403 hours COMPARISON: 09/23/2023 FINDINGS: The left upper extremity PICC has been slightly withdrawn since the comparison examination and now ends with its tip in the midsuperior vena cava. No physical abnormality of the PICC is identi fied. There are mild diffuse interstitial and airspace opacities. No pleural effusion or pneumothorax . The cardiomediastinal silhouette is stable. IMPRESSION: 1. Slight interval withdrawal of the left upper extremity PICC which now ends in the midsuperior vena cava. No physical abnormality of the PIC identified. 2. Mild diffuse lung disease, consistent with pneumonia and/or pulmonary edema. Reviewed, dictated and finalized at location B. F OPERATING OFFICER IMPRESSION: 1. Slight interval withdrawal of the left upper extremity PICC which now ends i n the midsuperior vena cava. No physical abnormality of the PIC identified. 2. Mild diffuse lung disease, consistent with pneumonia and/or pulmonary edema.
[2023-09-18 16:15] VITALS: BP 106/68; PULSE 118; RESP 16; TEMP 38.1; O2SAT 99
[2023-09-18 16:23] LABS: Glucose Point of Care 288 mg/dl (65-105)
--- NOTE | 2023-09-18 18:00 | ED.SKABFB ---
HPI - Skin/Abscess/Foreign Bdy General Chief complaint: Skin/Abscess/Foreign Body Stated complaint: leg wound Time Seen by Provider: 09/18/23 18:00 Focused HPI: This is a 28 year old male that presents to the ER for left foot wound. Worsening over the last week. Reports drainage from the area. History of DM. He does not check his blood sugar at home. Patient febrile in triage GENERAL: Well-appearing, well-nourished, and in no acute distress. HEAD: Normocephalic, atraumatic. CHEST: Clear to auscultation. ?No respiratory distress. HEART: Regular rate and rhythm.? NEURO: ?Alert and oriented x3. MUSCULOSKELETAL: Left foot with edema and erythema surrounding a wound around the foot lateral to the 5th metatarsal, actively draining Patient screened in triage and initial orders placed.? ?Additional care and disposition to be based upon?diagnostic testing and treatment. Related Data Allergies Allergy/AdvReac Type Severity Reaction Status Date / Time No Known Allergies Allergy Unverified 09/18/23 16:18 Review of Systems Review of Systems: CONSTITUTIONAL: Reports fever SKIN: Reports wound All systems reviewed & are unremarkable except as noted in HPI and below PMFSH Past Medical History Medical History Diabetes mellitus Surgical History Surgical History No pertinent past surgical history Family History Family History Mother Diabetes mellitus Father Unknown family medical history Social History Social History Smoking status: Never smoker Alcohol intake: never Substance use: never Substance use type: does not use Do You Feel Safe in your Home?: Yes Lack of Transportation: No Lack of Food: Never True Current Housing: I Have Housing Concerned About Future Housing: No Difficulty Paying Gas/Electric Bills: No Difficulty Paying for Meds: No Currently Unemployed: No Education: High School Diploma/GED Difficulty w/ Childcare or Family Care: No Living arrangements: with family Occupation/Education: occupation 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 HEAD: Normocephalic, atraumatic. EYES: EOMI. CHEST: Clear to auscultation. No respiratory distress. No wheezes rales or rhonchi HEART: Regular rate and rhythm. No murmur heard. Normal peripheral pulses. EXTREMITIES: Normal range of motion. Left foot with edema and erythema surrounding a wound around the foot lateral to the 5th metatarsal, actively draining SKIN: Warm, dry, no rash. NEURO: No focal deficits. Alert and oriented x3. PSYCH: Normal mood and affect Course Vital Signs Vital signs: Vital Signs Temperature 100.5 F H 09/18/23 16:15 Pulse Rate 118 H 09/18/23 16:15 Respiratory Rate 16 09/18/23 16:15 Blood Pressure 106/68 09/18/23 16:15 Pulse Oximetry 99 09/18/23 16:15 Oxygen Delivery Room Air 09/18/23 16:15 Temperature 97.9 F 09/21/23 14:43 Pulse Rate 86 09/21/23 14:43 Respiratory Rate 20 09/21/23 14:43 Blood Pressure 134/86 09/21/23 14:43 Pulse Oximetry 98 09/21/23 14:43 Oxygen Delivery Room Air 09/21/23 08:00 Oxygen Flow Rate 5 09/20/23 11:45 MDM - Skin/Abscess/Foreign Bdy Differential Diagnosis Differential diagnosis: Likely abscess of skin or subcutaneous tissue and cellulitis Lab Data Attestation: I reviewed the patient's lab results. 09/21/23 08:28 09/21/23 08:28 Labs: Lab Results 09/18/23 09/18/23 09/18/23 Range/Units 16:20 18:31 19:43 WBC 15.4 H (4.5-10.0) K/mm3 RBC 4.25 L (4.6-6
[2023-09-18 18:48] LABS: Basophils Absolute Auto 0.1 K/mm3 (0.0-0.1); Basophils Percent Auto 0.3 % (0.2-1.2); Eosinophils Percent Auto 0.2 % (0-4.4); Hematocrit 35.9 % (42.0-52.0); Hemoglobin 11.3 g/dL (14.0-18.0); Immature Granulocyte Absolute 0.09 K/mm3 (0.00-0.031); Immature Granulocyte Percent A 0.6 % (0-0.5); Lymphocytes Absolute Auto 2.63 K/mm3 (0.9-3.2); Lymphocytes Percent Auto 17.1 % (18.3-44.2); Mean Corpuscular HGB Conc 31.5 g/dl (32-36); Mean Corpuscular Hemoglobin 26.6 pg (26-34); Mean Corpuscular Volume 84.5 fl (80-100); Mean Platelet Volume 10.1 fl (7.4-10.4); Monocytes Percent Auto 6.6 % (2.6-8.5); Neutrophils Absolute Auto 11.6 K/mm3 (1.3-6.7); Neutrophils Percent Auto 75.2 % (45.5-73.1); Platelet Count Result 467 k/mm3 (150-375); Red Blood Count 4.25 M/mm3 (4.6-6.20); Red Cell Distribution Width 13.2 % (11.5-14.5); White Blood Count 15.4 K/mm3 (4.5-10.0)
[2023-09-18 18:50] VITALS: BP 129/73; PULSE 110; RESP 16; O2SAT 97
[2023-09-18 19:00] LABS: INR 1.1; Lactic Acid Reflex 1.6 mmol/L (0.7-2.0); Prothrombin Time 14.8 Seconds (11.1-14.7)
[2023-09-18 19:01] LABS: Partial Thromboplastin Time 36.9 SECONDS (22.3-36.8)
[2023-09-18 19:06] LABS: Alanine Aminotransferase 45 U/L (6-50); Albumin Level 3.4 g/dL (3.5-5.1); Alkaline Phosphatase 402 U/L (38-126); Anion Gap 7 mmol/L (8-16); Aspartate Amino Transferase 28 U/L (17-59); Bilirubin,Total 0.6 mg/dL (0.2-1.3); Blood Urea Nitrogen 12 mg/dL (9-20); Calcium 8.7 mg/dL (8.4-10.2); Carbon Dioxide 30 mmol/L (22-30); Chloride 101 mmol/L (98-107); Estimated CRCL calculation 157 ml/min; Estimated Glomerular Filt Rate > 60; Glucose 249 mg/dL (65-110); Potassium 4.4 mmol/L (3.4-5.0); Sodium 138 mmol/L (137-145)
--- NOTE | 2023-09-18 19:14 | ED.GENADULT ---
HPI - General Adult General Chief complaint: Skin/Abscess/Foreign Body Stated complaint: leg wound Time Seen by Provider: 09/18/23 18:00 History of Present Illness HPI narrative: This is a a 28-year-old male history of diabetes not on any medication presenting with a foot infection. Patient says for last 3 or 4 days he has had increased pain and swelling in his left foot. He has also had fevers, nausea vomiting and diarrhea. No chest pain or difficulty breathing. Patient was he has diabetes but does not have a primary care physician is not taking medications. Related Data Allergies Allergy/AdvReac Type Severity Reaction Status Date / Time No Known Allergies Allergy Unverified 09/18/23 16:18 [facility] Past Medical History Medical History (Updated 09/18/23 @ 19:29 by Nuno Lorenzana MD) Diabetes mellitus Surgical History Surgical History No pertinent past surgical history Family History Family History Mother Diabetes mellitus Father Unknown family medical history Social History Social History (Updated 12/30/19 @ 11:50 by Ayaan Bermudez MD) Smoking status: Never smoker Alcohol intake: never Substance use: never Substance use type: does not use Living arrangements: with family Occupation/Education: occupation 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 Head: atraumatic. EYES: EOMI, NOSE: Atraumatic NECK: Trachea midline RESPIRATORY: No increased rate of breathing CARDIOVASCULAR: RRR, ABDOMINAL: Non-distended MUSCULOSKELETAl: No obvious deformities NEURO: Alert. Moving 4/4 extremities SKIN:: Focal exam of the left foot revealed a punctate ulceration at the base of the 5th toe with erythema and swelling. PSYCHIATRIC: Normal affect Course Vital Signs Vital signs: Vital Signs Temperature 100.5 F H 09/18/23 16:15 Pulse Rate 118 H 09/18/23 16:15 Respiratory Rate 16 09/18/23 16:15 Blood Pressure 106/68 09/18/23 16:15 Pulse Oximetry 99 09/18/23 16:15 Oxygen Delivery Room Air 09/18/23 16:15 Temperature 101.7 F H 09/18/23 19:39 Pulse Rate 107 H 09/18/23 19:39 Respiratory Rate 15 09/18/23 19:39 Blood Pressure 131/80 09/18/23 19:39 Pulse Oximetry 100 09/18/23 19:39 Oxygen Delivery Room Air 09/18/23 18:50 Medical Decision Making MDM Narrative Medical decision making narrative: -Course: 28-year-old male presenting a diabetic foot ulcer white count 15. Slightly tachycardic. Given fluid resuscitation and IV medication per the ED antibiotic protocols. 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 Glucose 288 with no evidence of DKA/HHS. C-reactive protein 23.1. Foot x-ray showed no bony degeneration. -Discussion of Management/Consultants:Roe - Hospitalist -Interventions:3 L NS, Cefepime, Flagyl, Vancomycin -Shared decision making / Disposition: Admitted Vital Signs Vital Signs: Vital Signs Temperature 100.5 F H 09/18/23 16:15 Pulse Rate 118 H 09/18/23 16:15 Respiratory Rate 16 09/18/23 16:15 Blood Pressure 106/68 09/18/23 16:15 Pulse Oximetry 99 09/18/23 16:15 Oxygen Delivery Room Air 09/18/23 16:15 Temperature 101.7 F H 09/18/23 19:39 Pulse Rate 107 H 09/18/23 19:39 Respiratory Rate 15 09/18/23 19:39 Blood Pressure
[2023-09-18 19:18] LABS: CRP 23.1 mg/dL (<1.0)
[2023-09-18 19:39] VITALS: BP 131/80; PULSE 107; RESP 15; TEMP 38.7; O2SAT 100
[2023-09-18 19:45] LABS: Glucose Point of Care 226 mg/dl (65-105)
[2023-09-18] MEDS: CEFEPIME 2 GM/NS 50 ML 2 GM/50 ML BAG IVPB (19:49)
[2023-09-18] MEDS: SODIUM CHLORIDE 0.9% IV 3,000 ML 999 ML IV CONT (19:51)
--- NOTE | 2023-09-18 19:56 | PM.IMHP ---
H&P: HPI History of Present Illness Date/Time: 09/18/23 19:56 Chief Complaint: foot ulcer Narrative: This is a 28-year-old male with past medical history significant for diabetes. Patient presents to the emergency room due to left foot ulcer of 2 weeks duration with clear discharge. Denies any fevers, rigors, chills, nausea, vomiting diarrhea, generalized malaise. Preliminary workup was significant for CBC with a leukocyte count of 15,000. patient has been admitted for further evaluation management and treatment. Review of Systems Review of Systems: Left foot ulcer Constitutional: Constitutional: Denies chills, Denies fatigue, Denies fever(s), Denies malaise, Denies night sweats and Denies weakness Eyes: Eyes: Denies change in vision ENT: Denies dysphagia and Denies odynophagia Cardiovascular: Cardiovascular: Denies chest pain, Denies radiating jaw, neck or arm pain and Denies palpitations Respiratory: Respiratory: Denies cough and Denies dyspnea Gastrointestinal: Gastrointestinal: Denies abdominal pain, Denies nausea and Denies vomiting Genitourinary: Genitourinary: Reports no additional male genitourinary complaints and Reports as per HPI Musculoskeletal: Musculoskeletal: Reports other ( left foot ulcer) Integumentary/Breasts: Skin/Breast: Reports skin ulcer ( left foot) Neurologic: Denies focal weakness and Denies Sensory deficit (Neuro) Psychiatric: Psychiatric: Reports no additional psychiatric complaints and Reports as per HPI Endocrine: Endocrine: Denies cold intolerance, Denies fatigue, Denies flushing, Denies heat intolerance, Denies polyphagia, Denies polydipsia and Denies palpitations Hematologic/Lymphatic: Hematologic/Lymphatic: Reports no additional hematologic/lymphatic complaints and Reports as per HPI Allergic/Immunologic: Allergic/Immunologic: Reports no additional allergic/immunologic complaints and Reports as per HPI PMFSH Past Medical History Medical History (Updated 09/19/23 @ 02:19 by Brandon Au MD) Diabetes mellitus Surgical History Surgical History No pertinent past surgical history Family History Family History Mother Diabetes mellitus Father Unknown family medical history Social History Social History (Updated 12/30/19 @ 11:50 by Ayaan Bermudez MD) Smoking status: Never smoker Alcohol intake: never Substance use: never Substance use type: does not use Do You Feel Safe in your Home?: Yes Lack of Transportation: No Lack of Food: Never True Current Housing: I Have Housing Concerned About Future Housing: No Difficulty Paying Gas/Electric Bills: No Difficulty Paying for Meds: No Currently Unemployed: No Education: High School Diploma/GED Difficulty w/ Childcare or Family Care: No Living arrangements: with family Occupation/Education: occupation 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, 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 Gender identity (if verbalized by the patient): Male Spiritual care concerns: No Meds Home Medications and Allergies Allergies Allergy/AdvReac Type Severity Reaction Status Date / Time No Known Allergies Allergy Unverified 09/18/23 16:18 Vital Signs Vital Signs - 24 hr 09/18/23 16:15 09/18/23 18:50 09/18/23 19:39 Temperature 100.5 F H 101.7 F H Pulse Rate 118 H 110 H 107 H Respiratory Rate 16 16 15 Blood Pressure 106/68 129/73 131/80 Pulse Oximetry 99 97 100 Oxygen Delivery Room Air Room Air Exam Narrative: patient is laying in bed Const: General: comfortable, no acute distress, well developed, alert, awake and average body habitus Nutritional Appearance: overweight Orientation/consciousness: patient oriented x3 Other: well-appearing HENMT: Head: normal to inspection, normocephalic and atraumatic Ears: hearing grossly normal bilaterally Face
[2023-09-18] MEDS: ACETAMINOPHEN 500 MG TABLET 1000 MG PO (20:07)
[2023-09-18] MEDS: metroNIDAZOLE 500 MG/ISO 100ML 500 MG/100 ML BAG 100 MG IVPB (20:50)
[2023-09-18] MEDS: VANCOMYCIN 1,250 MG/NS 250 ML 1,250 MG/250 ML BAG 166.67 MG IVPB (21:52)
[2023-09-18 21:57] VITALS: BP 123/69; PULSE 101; RESP 15; TEMP 37.7; O2SAT 98
[2023-09-18 22:00] VITALS: BP 119/73; PULSE 100; RESP 20; TEMP 37.1; O2SAT 99
[2023-09-18] MEDS: VANCOMYCIN 1,000 MG/NS 250 ML 1,000 MG/250 ML BAG 250 MG IVPB (23:05)
[2023-09-18 23:15] LABS: Glucose Point of Care 161 mg/dl (65-105)
[2023-09-19 00:56] VITALS: PULSE 102; RESP 18; O2SAT 98
[2023-09-19 01:14] VITALS: BMI 32.8
--- NOTE | 2023-09-19 01:16 | PC.NURSE ---
Pt is A&O x4, able to make needs known. Pt's family: mother and sister present at bedside during the admission. All information reviewed with pt and his family. Pt's sister stated that the pt is a little slow . She said, he never got diagnosed but we could always just tell that he's been slow since he was a kid. Pt and family agreeable with plan of care. Pt denies taking any medications except for occasionally taking insulin that is prescribed for his mother who is also diabetic. Pt's mother stated that she gives him some of her own insulin because he doesn't go to the doctor. When asked why, pt stated that he doesn't want to miss a day of work because he doesn't want to be fired. Pt and his family were educated about diabetes, compliance with medications, complications of diabetes, glucose checks, etc. Pt has a diabetic ulcer to L foot, photos take by this RN and uploaded to pt's chart. Dressing changed by this RN and is currently dry and intact. Wound consult ordered. Pt was instructed about the use of call light, how to call for assistance, etc. No further questions at this time. Will continue to monitor.
[2023-09-19 05:00] VITALS: BP 121/72; PULSE 88; RESP 18; TEMP 37.1; O2SAT 99
[2023-09-19] MEDS: metroNIDAZOLE 500 MG/ISO 100ML 500 MG/100 ML BAG 100 MG IVPB ×3 (06:13→23:52)
[2023-09-19 08:12] LABS: Estimated CRCL calculation 185 ml/min; Estimated Glomerular Filt Rate > 60
[2023-09-19 08:17] LABS: Basophils Percent Auto 0.2 % (0.2-1.2); Eosinophils Absolute Auto 0.2 K/mm3 (0-0.3); Eosinophils Percent Auto 1.2 % (0-4.4); Hematocrit 32.3 % (42.0-52.0); Hemoglobin 10.4 g/dL (14.0-18.0); Immature Granulocyte Absolute 0.06 K/mm3 (0.00-0.031); Immature Granulocyte Percent A 0.5 % (0-0.5); Lymphocytes Absolute Auto 2.64 K/mm3 (0.9-3.2); Lymphocytes Percent Auto 21.2 % (18.3-44.2); Mean Corpuscular HGB Conc 32.2 g/dl (32-36); Mean Corpuscular Hemoglobin 26.9 pg (26-34); Mean Corpuscular Volume 83.7 fl (80-100); Mean Platelet Volume 9.7 fl (7.4-10.4); Monocytes Absolute Auto 1.2 K/mm3 (0.1-0.6); Monocytes Percent Auto 9.3 % (2.6-8.5); Neutrophils Absolute Auto 8.4 K/mm3 (1.3-6.7); Neutrophils Percent Auto 67.6 % (45.5-73.1); Platelet Count Result 418 k/mm3 (150-375); Red Blood Count 3.86 M/mm3 (4.6-6.20); Red Cell Distribution Width 13.3 % (11.5-14.5); White Blood Count 12.4 K/mm3 (4.5-10.0)
[2023-09-19 08:34] LABS: Alanine Aminotransferase 34 U/L (6-50); Albumin Level 2.7 g/dL (3.5-5.1); Alkaline Phosphatase 355 U/L (38-126); Anion Gap 6 mmol/L (8-16); Aspartate Amino Transferase 29 U/L (17-59); Bilirubin,Total 0.6 mg/dL (0.2-1.3); Blood Urea Nitrogen 12 mg/dL (9-20); Calcium 7.9 mg/dL (8.4-10.2); Carbon Dioxide 25 mmol/L (22-30); Chloride 107 mmol/L (98-107); Estimated CRCL calculation 185 ml/min; Estimated Glomerular Filt Rate > 60; Glucose 178 mg/dL (65-110); Potassium 3.7 mmol/L (3.4-5.0); Sodium 138 mmol/L (137-145)
[2023-09-19 08:54] LABS: Glucose Point of Care 172 mg/dl (65-105)
[2023-09-19] MEDS: VANCOMYCIN 1,500 MG/NS 500 ML 1,500 MG/500 ML BAG 250 MG IVPB ×2 (09:23→21:28)
[2023-09-19] MEDS: CEFEPIME 2 GM/NS 50 ML 2 GM/50 ML BAG IVPB ×2 (09:23→20:52)
[2023-09-19 13:53] LABS: Hemoglobin A1C > 14.0 % (<5.7)
[2023-09-19 14:00] VITALS: BP 120/60; PULSE 100; RESP 18; TEMP 37.3; O2SAT 100
[2023-09-19 14:00] LABS: Glucose Point of Care 229 mg/dl (65-105)
--- NOTE | 2023-09-19 15:13 | PM.CNGS ---
Assessment and Plan Assessment and plan (1) Diabetic infection of left foot: Code(s): E11.628 - Type 2 diabetes mellitus with other skin complications; L08.9 - Local infection of the skin and subcutaneous tissue, unspecified Status: Acute Assessment and Plan: The patient has a left diabetic foot infection with an ulcer on the dorsal aspect of his foot just lateral to the 5th metatarsal with purulent drainage. Left foot x-rays showed no evidence of osteomyelitis. Discussed the case with Dr. Boone. We would recommend proceeding with incision and drainage, possible debridement of left diabetic foot ulcer. Description of the procedure, risks, benefits, and alternatives were discussed with the patient in detail. He agrees to proceed. We will try adding him onto the surgery schedule possibly tomorrow. Will make NPO after midnight. Continue broad-spectrum IV antibiotics. (2) Uncontrolled diabetes mellitus: Status: Acute Assessment and Plan: Management per primary service. I had a long discussion with the patient about the importance of being compliant with controlling his diabetes and the risks of sharing his mother's insulin. 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 We discussed how this can progress to deeper structures and could eventually lead to osteomyelitis and how this would change treatment. He has had many years of noncompliance and family is trying to help him also realize the importance of taking care of his diabetes. (3) Diabetic neuropathy: Code(s): E11.40 - Type 2 diabetes mellitus with diabetic neuropathy, unspecified Status: Acute Plan I have discussed the patient's case and plan of care with Dr. Boone. Thank you for allowing us to see the patient in consultation and we will continue to follow along with you. History of Present Illness Consult details Consult date: 09/19/23 Reason for consult: other (Diabetic foot wound) Requesting physician: Debbie Holguin PA-C Narrative: This is a noncompliant 28-year-old man with uncontrolled type 2 diabetes mellitus, who we have been asked to see in surgical consultation for a left diabetic foot wound. He presented to the ER yesterday with complaints of swelling in his left foot. He is a poor historian and actually called his sister on the phone to help provide history and answer any questions. He reports having a blister on the side of his foot for over two months. He is not sure what caused this. His sister thinks it may have been some shoes he was wearing that was rubbing on the lateral side of his foot. He thought he got bit by something. Either way, his mother poked at this area and tried to drain it at home. She has been putting rubbing alcohol on this area and washing with water. He cannot recall if it has been draining. He is a type 2 diabetic, diagnosed around age 15. He previously had a PCP and was on medication at that time, but per his sister, he never returned and has not seen a provider since then for his diabetes. His mother has been giving him her insulin at home to help with his glucose apparently. Over the past 4 days, the swelling in his left foot has gotten worse and they noticed redness. He also has had persistent subjective fevers. Therefore, he came into the ER for evaluation. In the ER, he was tachycardic with a heart rate of 118 and febrile with a temperature of 101.5F. Labs showed a white blood cell count of 15,400, glucose 249, CRP 23.1, and lactic acid 1.6. Left foot x-rays showed no evidence of osteomyelitis. He was admitted to the Hospitalist service and started on broad-spectrum IV antibiotics. Wound culture was taken of the left foot wound. Wound care was consulted and recommended surgery consult. He was started on local wound care with silver gel dressing changes. He is now seen on the medical floor. He denies having a foot infection or any s
--- NOTE | 2023-09-19 15:56 | PM.IMPN ---
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 Left foot x-ray with no osseous abnormality or foreign bodies. Patient started on vancomycin, cefepime and Flagyl per antibiotic stewardship. Wound Care consulted. General surgery consulted. Blood cultures and wound culture ordered (2) Diabetes mellitus: Code(s): E11.9 - Type 2 diabetes mellitus without complications Status: Acute Assessment and Plan: patient does not take any medications for his diabetes. Education was given on the importance of tight glycemic control. States that he has been taking 25 units of his mother's insulin daily. coding educator consulted. A1c greater than 14. 22 units of Lantus and low-dose slide ordered. [id number] protocol ordered Subjective Date/time seen: 09/19/23 15:56 Interval history: Patient presents to the ED tonsil and left foot ulcer. Patient states for the last 2 weeks he has had fevers on and off as well as nausea and some minimal diarrhea. He states that he has had this ulcer on his foot for quite some time it began when his left shoe had a hole in it on the side. He does have decreased sensation in his feet. Discussed with him the risks of noncontrolled diabetes such as amputation and kidney disease. He was started on insulin while here. General surgery consulted per wound care recommendation. Exam Narrative: GENERAL: Comfortable, no acute distress HENMT: moist mucous membranes EYES: EOM intact b/l NECK: no lymphadenopathy RESPIRATORY: clear to auscultation CARDIO: RRR GI: soft, nontender, bowel sounds present SKIN: no rashes EXTREMITIES: left foot bandaged, dry and intact Objective Data Vital Signs Vital Signs: Vital Signs - 24 hr 09/18/23 16:15 09/18/23 18:50 09/18/23 19:39 Temperature 100.5 F H 101.7 F H Pulse Rate 118 H 110 H 107 H Respiratory Rate 16 16 15 Blood Pressure 106/68 129/73 131/80 Pulse Oximetry 99 97 100 Oxygen Delivery Room Air Room Air 09/18/23 21:57 09/18/23 22:00 09/19/23 00:56 Temperature 99.8 F H 98.7 F Pulse Rate 101 H 100 102 H Respiratory Rate 15 20 18 Blood Pressure 123/69 119/73 Pulse Oximetry 98 99 98 Oxygen Delivery Room Air 09/19/23 05:00 09/19/23 08:00 09/19/23 14:00 Temperature 98.8 F 99.1 F Pulse Rate 88 100 Respiratory Rate 18 18 Blood Pressure 121/72 120/60 Pulse Oximetry 99 100 Oxygen Delivery Room Air Intake/Output Intake/Output: Intake & Output 09/16/23 09/17/23 09/18/23 09/19/23 23:59 23:59 23:59 23:59 Intake Total 3150 1710 Output Total 1100 Balance 3150 610 Meds/Results Medications: Active Medications Generic Name Dose Route Start Last Admin Trade Name Freq PRN Reason Stop Dose Admin Dextrose 12.5 gm 09/19/23 00:12 Dextrose 50% 25 Gm/50 Ml Syringe IV PUSH PRN PRN Hypoglycemia Protocol Glucagon 1 mg 09/19/23 00:12 Glucagon For Inj 1 Mg Vial IM PRN PRN Hypoglycemia Protocol Glucose 15 gm 09/19/23 00:12 Glucose Oral Gel 15 Gm Of Glucse In 37.5 Gm Tube PO PRN PRN Hypoglycemia Protocol Cefepime HCl 2 gm in 50 mls @ 100 mls/hr 09/19/23 08:00 09/19/23 09:23 Maxipime 2 Gm/Ns 50 Ml IVPB 100 mls/hr Q12H ROBBY Administration Metronidazole 500 mg in 100 mls @ 100
[2023-09-19 16:18] LABS: Glucose Point of Care 252 mg/dl (65-105)
[2023-09-19] MEDS: INSULIN ASPART (*BKC) 100 UNITS/ML SUB-Q ×2 (17:45→20:53)
[2023-09-19 20:29] LABS: Glucose Point of Care 255 mg/dl (65-105)
[2023-09-19] MEDS: INSULIN GLARGINE (*BKC) 100 UNITS/ML 22 UNITS SUB-Q (20:53)
[2023-09-19 21:17] VITALS: BP 149/81; PULSE 98; RESP 13; TEMP 38.4; O2SAT 98
[2023-09-19 23:00] VITALS: TEMP 36.5
[2023-09-20] VITALS (15 sets, daily range): BP systolic 92–146; BP diastolic 59–90; PULSE 86–105; RESP 13–20; TEMP 36.8–39.8; O2SAT 94–100; BMI 32.8
[2023-09-20] MEDS: metroNIDAZOLE 500 MG/ISO 100ML 500 MG/100 ML BAG 100 MG IVPB ×3 (05:37→22:01)
[2023-09-20 08:07] LABS: Glucose Point of Care 193 mg/dl (65-105)
[2023-09-20 08:08] LABS: Basophils Percent Auto 0.4 % (0.2-1.2); Eosinophils Absolute Auto 0.1 K/mm3 (0-0.3); Eosinophils Percent Auto 0.6 % (0-4.4); Hematocrit 32.8 % (42.0-52.0); Hemoglobin 10.5 g/dL (14.0-18.0); Immature Granulocyte Absolute 0.11 K/mm3 (0.00-0.031); Lymphocytes Absolute Auto 2.72 K/mm3 (0.9-3.2); Mean Corpuscular Hemoglobin 26.7 pg (26-34); Mean Corpuscular Volume 83.5 fl (80-100); Mean Platelet Volume 9.4 fl (7.4-10.4); Monocytes Absolute Auto 1.1 K/mm3 (0.1-0.6); Monocytes Percent Auto 9.8 % (2.6-8.5); Neutrophils Absolute Auto 6.9 K/mm3 (1.3-6.7); Neutrophils Percent Auto 63.2 % (45.5-73.1); Platelet Count Result 418 k/mm3 (150-375); Red Blood Count 3.93 M/mm3 (4.6-6.20); White Blood Count 10.9 K/mm3 (4.5-10.0)
[2023-09-20 08:23] LABS: Anion Gap 7 mmol/L (8-16); Blood Urea Nitrogen 8 mg/dL (9-20); Calcium 8.1 mg/dL (8.4-10.2); Carbon Dioxide 26 mmol/L (22-30); Chloride 104 mmol/L (98-107); Estimated CRCL calculation 185 ml/min; Estimated Glomerular Filt Rate > 60; Glucose 185 mg/dL (65-110); Potassium 3.8 mmol/L (3.4-5.0); Sodium 137 mmol/L (137-145)
[2023-09-20 08:51] LABS: Vancomycin Trough 8.4 ug/mL (10.0-20.0)
[2023-09-20] MEDS: CEFEPIME 2 GM/NS 50 ML 2 GM/50 ML BAG IVPB ×2 (09:25→20:18)
[2023-09-20 10:30] LABS: Glucose Point of Care 163 mg/dl (65-105)
--- NOTE | 2023-09-20 10:35 | WPDHPUPDATE1 ---
History and Physical Update Update Date/Time: 09/20/23 10:35 History and Physical has been reviewed, including an updated exam of the patient. There are NO changes in the patient's condition. Risks, benefits, and alternatives have been discussed and questions answered. Patient agrees to proceed with procedure.
[2023-09-20] MEDS: VANCOMYCIN 1,750 MG/NS 500 ML 1,750 MG/500 ML BAG 250 MG IVPB (10:40)
--- NOTE | 2023-09-20 10:40 | WPDANESEPPF ---
Anes - Initial Pre Proc Eval Procedure: Operation Date: 09/20/23 15:00 Proposed Procedures p Incision and Drainage Left Foot Abscess - Garcia Boone MD Date/Time: 09/20/23 10:40 Surgeon: Brandon Au MD Pre Op Diagnosis: Diabetic Foot Ulcer Patient Data Age: 28 Gender: M Height: 1.65 m Weight: 89.5 kg Last Vital Signs Temp 36.8 C 09/20/23 04:00 Pulse 93 09/20/23 04:00 Resp 13 09/20/23 04:00 BP 108/60 09/20/23 04:00 Pulse Ox 94 09/20/23 04:00 O2 Del Method Room Air 09/19/23 08:00 Allergies Allergy/AdvReac Type Severity Reaction Status Date / Time No Known Allergies Allergy Unverified 09/18/23 16:18 Laboratory Tests 09/19/23 09/19/23 09/19/23 07:24 11:48 16:10 WBC RBC Hgb Hct MCV MCH MCHC RDW Plt Count MPV Immature Gran % (Auto) Neut % (Auto) Lymph % (Auto) Montgomery % (Auto) Eos % (Auto) Baso % (Auto) Lymph # (Auto) [place] # (Auto) Eos # (Auto) Baso # (Auto) Abs Immat Gran (auto) Absolute Neuts (auto) Absolute Nucleated RBC Nucleated RBC % Sodium Potassium Chloride Carbon Dioxide Anion Gap BUN Creatinine Estim Creat Clear Calc Estimated GFR Glucose POC Capillary Glucose 229 H mg/dl 252 H mg/dl (65-105) (65-105) Hemoglobin A1c > 14.0 H % (<5.7) Calcium Vancomycin Trough 09/19/23 09/20/23 09/20/23 20:25 07:57 08:01 WBC 10.9 H K/mm3 (4.5-10.0) RBC 3.93 L M/mm3 (4.6-6.20) Hgb 10.5 L g/dL (14.0-18.0) Hct 32.8 L % (42.0-52.0) MCV 83.5 fl (80-100) MCH 26.7 pg (26-34) MCHC 32.0 g/dl (32-36) RDW 13.0 % (11.5-14.5) Plt Count 418 H k/mm3 (150-375) MPV 9.4 fl (7.4-10.4) Immature Gran % (Auto) 1.0 H % (0-0.5) Neut % (Auto) 63.2 % (45.5-73.1) Lymph % (Auto) 25.0 % (18.3-44.2) Montgomery % (Auto) 9.8 H % (2.6-8.5) Eos % (Auto) 0.6 % (0-4.4) Baso % (Auto) 0.4 % (0.2-1.2) Lymph # (Auto) 2.72 K/mm3 (0.9-3.2) Montgomery # (Auto) 1.1 H K/mm3 (0.1-0.6) Eos # (Auto) 0.1 K/mm3 (0-0.3) Baso # (Auto) 0.0 K/mm3 (0.0-0.1) Abs Immat Gran (auto) 0.11 H K/mm3 (0.00-0.031) Absolute Neuts (auto) 6.9 H K/mm3 (1.3-6.7) Absolute Nucleated RBC 0.0 K/mm3 (0.0-0.012) Nucleated RBC % 0.0 % (0.0-0.2) Sodium 137 mmol/L (137-145) Potassium 3.8 mmol/L (3.4-5.0) Chloride 104 mmol/L (98-107) Carbon Dioxide 26 mmol/L (22-30) Anion Gap 7 L mmol/L (8-16) BUN 8 L mg/dL (9-20) Creatinine 0.50 L mg/dL (0.7-1.3) Estim Creat Clear Calc 185 ml/min Estimated GFR > 60 (59 - ) Glucose 185 H mg/dL (65-110) POC Capillary Glucose 255 H mg/dl 193 H mg/dl (65-105) (65-105) Hemoglobin A1c Calcium 8.1 L mg/dL (8.4-10.2) Vancomycin Trough 8.4 L ug/mL (10.0-20.0) 09/20/23 10:28 WBC RBC Hgb Hct MCV MCH MCHC RDW Plt Count MPV Immature Gran % (Auto) Neut % (Auto) Lymph % (Auto) Montgomery % (Auto) Eos % (Auto) Baso % (Auto) Lymph # (Auto) Montgomery # (Auto) Eos # (Auto) Baso # (Auto) Abs Immat Gran (auto) Absolute Neuts (auto) Absolute Nucleated RBC Nucleated RBC % Sodium Potassiu
[2023-09-20] MEDS: LACTATED RINGERS 1,000 ML 30 ML IV CONT (10:50)
--- NOTE | 2023-09-20 11:13 | W.PM.PROC2 ---
Procedure Note - Detailed Date of Procedure 09/20/23 Pre-op Diagnosis Diabetic Foot Ulcer Post-op Diagnosis Same Procedure Performed Complex incision and drainage left diabetic foot ulcer measuring 6 x 4 cm Surgeon Samantha Ruiz MD Anesthesia General Indications 28-year-old male presenting with a left lateral foot diabetic foot ulcer, uncontrolled diabetes Findings left lateral diabetic foot ulcer measuring 4 x 6 cm, with tunneling superiorly in the subcutaneous tissue Description of Procedure The patient was taken the operating room placed in the supine position. After adequate induction of general anesthesia, the patient was prepped and draped the normal sterile fashion. A time-out was then done to verify the patient's identity, as well as the procedure being performed. I began by opening the most fluctuant area of the abscess. Immediately a large amount of purulent drainage was noted. I then used a hemostat to bluntly dissect around the cavity and break up further loculations. More purulent drainage was noted. Once the cavity was completely explored and drained, it measured approximately 4 x 6 cm. This tunnel deep within the subcutaneous tissue, however the underlying bone was not obviously involved. I then copiously irrigated the cavity with normal saline. Then packed the cavity with half-inch iodoform packing. Sterile dressing was then placed. The patient tolerated the procedure well and was extubated postoperatively. He will be sent to the recovery room in stable condition. Estimated Blood Loss 5 Drains No Packing Yes Pathology None sent Complications No immediate complications Condition Stable Disposition PACU [facility] Billing Surgery - Charge Forward: Surgery Billing
[2023-09-20 11:23] LABS: Glucose Point of Care 170 mg/dl (65-105)
--- NOTE | 2023-09-20 11:47 | SUR.PHASEI ---
1130 - pt came from floor with his phone. at this time phone is on top of chart.
--- NOTE | 2023-09-20 15:55 | PM.IMPN ---
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 Left foot x-ray with no osseous abnormality or foreign bodies. Patient started on vancomycin, cefepime and Flagyl per antibiotic stewardship. Wound Care consulted. General surgery consulted. Blood cultures and wound culture no growth to date. Postop day 0 I&D (2) Diabetes mellitus: Code(s): E11.9 - Type 2 diabetes mellitus without complications Status: Acute Assessment and Plan: patient does not take any medications for his diabetes. Education was given on the importance of tight glycemic control. States that he has been taking 25 units of his mother's insulin daily. radar operator consulted. A1c > 14. 22 units of Lantus and low-dose slide ordered. [id number] protocol ordered Subjective Date/time seen: 09/20/23 15:55 Interval history: I saw patient postoperatively. He is doing well as far as pain goes. He is experiencing some nausea and low-grade fevers. Order patient some Tylenol and Zofran for the symptoms. He is having a dry nonproductive cough as well so will order a COVID and flu swab on him. Continue antibiotics at this time. Exam Narrative: GENERAL: Comfortable, no acute distress HENMT: moist mucous membranes EYES: EOM intact b/l NECK: no lymphadenopathy RESPIRATORY: clear to auscultation CARDIO: RRR GI: soft, nontender, bowel sounds present SKIN: no rashes EXTREMITIES: left foot bandaged, dry and intact Objective Data Vital Signs Vital Signs: Vital Signs - 24 hr 09/19/23 21:17 09/19/23 23:00 09/20/23 04:00 Temperature 101.1 F H 97.7 F 98.3 F Pulse Rate 98 93 Respiratory Rate 13 13 Blood Pressure 149/81 H 108/60 Pulse Oximetry 98 94 Oxygen Delivery Oxygen Flow Rate 09/20/23 10:40 09/20/23 11:15 09/20/23 11:30 Temperature 98.2 F 99.2 F Pulse Rate 91 86 91 Respiratory Rate 14 16 20 Blood Pressure 139/82 92/59 L 126/80 Pulse Oximetry 99 99 100 Oxygen Delivery Room Air Simple Face Mask Simple Face Mask Oxygen Flow Rate 5 5 09/20/23 11:45 09/20/23 12:00 09/20/23 12:50 Temperature 98.9 F Pulse Rate 92 98 90 Respiratory Rate 20 20 18 Blood Pressure 132/84 136/90 121/75 Pulse Oximetry 100 98 99 Oxygen Delivery Simple Face Mask Room Air Oxygen Flow Rate 5 09/20/23 13:00 09/20/23 13:30 09/20/23 15:00 Temperature 98.9 F 99.6 F 99.9 F H Pulse Rate 91 93 96 Respiratory Rate 18 18 18 Blood Pressure 120/60 143/89 H 146/90 H Pulse Oximetry 100 100 100 Oxygen Delivery Oxygen Flow Rate Intake/Output Intake/Output: Intake & Output 09/17/23 09/18/23 09/19/23 09/20/23 23:59 23:59 23:59 23:59 Intake Total 3150 3530 950 Output Total 1100 1200 Balance 3150 2430 -250 Meds/Results Medications: Active Medications Generic Name Dose Route Start Last Admin Trade Name Freq PRN Reason Stop Dose Admin Acetaminophen 650 mg 09/20/23 15:53 Acetaminophen 325 Mg Tablet PO Q6H PRN Mild Pain (1-3) or Fever Hydrocodone Bitart/Acetaminophen 1 tab 09/20/23 15:53 Hydrocodone/Acetaminophen (*Crx) 5-325 Mg Tablet PO Q6H PRN Pain Rated 4-6 Dextrose 12.5 gm 09/19/23 00:12 Dextrose 50% 25 Gm/50 Ml Syringe IV PUSH PRN PRN Hypoglycemia Protocol Glucagon 1 mg 09/19/23 00:1
[2023-09-20] MEDS: MORPHINE SULFATE (*CRX) 2 MG/ML INJ 1 MG IV PUSH (16:14)
[2023-09-20] MEDS: ACETAMINOPHEN 325 MG TABLET 650 MG PO (16:15)
[2023-09-20 16:32] LABS: Glucose Point of Care 158 mg/dl (65-105)
[2023-09-20] MEDS: ONDANSETRON INJ 4 MG/2 ML VIAL IV PUSH (16:42)
[2023-09-20] MEDS: VANCOMYCIN 1,750 MG/NS 500 ML 1,750 MG/500 ML BAG 150 MG IVPB (17:55)
[2023-09-20 18:06] LABS: Influenza A QL RT-PCR Negative (Negative); Influenza B QL RT-PCR Negative (Negative); RSV RNA, RT-PCR Negative (Negative); SARS-CoV-2 RNA PCR Negative (Negative)
--- NOTE | 2023-09-20 19:41 | PC.NURSE ---
Pt scheduled for I&D 1500. Surgery calling while this RN involved with another pt urgent need. Arrived to pt who denied pain. Hung abx and started consent. Pt A/O x 3 but appears to be developmentally delayed. Consent obtained with sister who acts as on behalf of pt via telephone. Both parties agreeable. Consent signed by pt. Pt returned from surgery. Pt did not have tylenol or zofran ordered. Obtained order to treat pt nausea and fever. Emesis x 1, 75 ml bile. Temp 103.1. Treated with tylenol. Pt resting much more comfortably. Pt not wanting to eat at this time.
[2023-09-20 21:21] LABS: Glucose Point of Care 138 mg/dl (65-105)
[2023-09-21] MEDS: VANCOMYCIN 1,750 MG/NS 500 ML 1,750 MG/500 ML BAG 250 MG IVPB (01:53)
--- NOTE | 2023-09-21 02:33 | PC.NURSE ---
end time of 1800 vancomycin miss charted in OCT was started at 09/20/231754 and ended at 09/20/232114
[2023-09-21] MEDS: metroNIDAZOLE 500 MG/ISO 100ML 500 MG/100 ML BAG 100 MG IVPB ×3 (05:44→22:17)
[2023-09-21 05:49] LABS: Glucose Point of Care 130 mg/dl (65-105)
[2023-09-21 05:52] VITALS: BP 136/82; PULSE 89; RESP 20; TEMP 36.6; O2SAT 100
[2023-09-21 07:30] LABS: Glucose Point of Care 134 mg/dl (65-105)
[2023-09-21 08:00] VITALS: PULSE 89; RESP 20; O2SAT 100
[2023-09-21 08:41] LABS: Basophils Absolute Auto 0.1 K/mm3 (0.0-0.1); Basophils Percent Auto 0.5 % (0.2-1.2); Eosinophils Absolute Auto 0.2 K/mm3 (0-0.3); Eosinophils Percent Auto 1.2 % (0-4.4); Hematocrit 34.4 % (42.0-52.0); Hemoglobin 10.7 g/dL (14.0-18.0); Immature Granulocyte Absolute 0.13 K/mm3 (0.00-0.031); Immature Granulocyte Percent A 1.1 % (0-0.5); Lymphocytes Absolute Auto 2.62 K/mm3 (0.9-3.2); Lymphocytes Percent Auto 21.7 % (18.3-44.2); Mean Corpuscular HGB Conc 31.1 g/dl (32-36); Mean Corpuscular Hemoglobin 26.4 pg (26-34); Mean Corpuscular Volume 84.7 fl (80-100); Mean Platelet Volume 9.4 fl (7.4-10.4); Monocytes Absolute Auto 1.2 K/mm3 (0.1-0.6); Monocytes Percent Auto 9.6 % (2.6-8.5); Neutrophils Percent Auto 65.9 % (45.5-73.1); Platelet Count Result 480 k/mm3 (150-375); Red Blood Count 4.06 M/mm3 (4.6-6.20); Red Cell Distribution Width 13.1 % (11.5-14.5); White Blood Count 12.1 K/mm3 (4.5-10.0)
[2023-09-21 08:49] LABS: Estimated CRCL calculation 185 ml/min; Estimated Glomerular Filt Rate > 60
[2023-09-21 08:51] LABS: Alanine Aminotransferase 33 U/L (6-50); Albumin Level 3.2 g/dL (3.5-5.1); Alkaline Phosphatase 504 U/L (38-126); Anion Gap 7 mmol/L (8-16); Aspartate Amino Transferase 40 U/L (17-59); Bilirubin,Total 0.8 mg/dL (0.2-1.3); Blood Urea Nitrogen 10 mg/dL (9-20); Calcium 8.3 mg/dL (8.4-10.2); Carbon Dioxide 27 mmol/L (22-30); Chloride 104 mmol/L (98-107); Estimated CRCL calculation 185 ml/min; Estimated Glomerular Filt Rate > 60; Glucose 142 mg/dL (65-110); Potassium 3.6 mmol/L (3.4-5.0); Sodium 138 mmol/L (137-145)
[2023-09-21 11:43] LABS: Glucose Point of Care 160 mg/dl (65-105)
[2023-09-21] MEDS: CEFEPIME 2 GM/NS 50 ML 2 GM/50 ML BAG IVPB ×2 (12:29→20:56)
--- NOTE | 2023-09-21 13:10 | WPDPN ---
Progress Note: A&P Assessment and Plan (1) Diabetic infection of left foot: Code(s): E11.628 - Type 2 diabetes mellitus with other skin complications; L08.9 - Local infection of the skin and subcutaneous tissue, unspecified Status: Acute Assessment and Plan: Postop day 1 after complex incision and drainage of left lateral forefoot abscess. We will continue packing of the wound every day with iodoform gauze. Continue with the broad-spectrum IV antibiotic coverage. Culture showed mixed mary kate with many white blood cells. Patient may ambulate with weight-bearing only on the forefoot. Will get him postop shoe. Continue supportive management. (2) Uncontrolled diabetes mellitus: Status: Acute Assessment and Plan: Treatment of the patient's uncontrolled diabetes as per primary service. Subjective Date/time seen: 09/21/23 13:10 Interval history: Patient is doing well today. He is postop day 1 after complex incision and drainage left lateral forefoot abscess. Denies any pain in the left foot but he does have pretty severe peripheral neuropathy. Given ambulate to the bathroom weight-bearing on the left heel. Cultures showed mixed mary kate in the left lateral forefoot abscess and lots of white blood cells. [place] [address] [place] [address]. His blood sugars have been in the 130s to 140s. Exam Extrem: Other: Left forefoot wound is open with packing of iodoform gauze in the abscess cavity. There is still moderate induration and redness of the area and a small amount of pus draining from the opening. The packing was removed. There is no ascending cellulitis up the left lower extremity. Objective Data Vital Signs Vital Signs: Vital Signs - 24 hr 09/20/23 13:30 09/20/23 15:00 09/20/23 16:15 Temperature 37.6 C 37.7 C H 37.7 C H Pulse Rate 93 96 Respiratory Rate 18 18 Blood Pressure 143/89 H 146/90 H Pulse Oximetry 100 100 Oxygen Delivery 09/20/23 17:29 09/20/23 17:15 09/20/23 20:00 Temperature 39.8 C H 38.5 C H Pulse Rate 105 H Respiratory Rate 18 Blood Pressure 137/69 Pulse Oximetry 97 97 Oxygen Delivery Room Air 09/20/23 21:55 09/21/23 05:52 09/21/23 08:00 Temperature 36.8 C 36.6 C Pulse Rate 92 89 89 Respiratory Rate 16 20 20 Blood Pressure 114/66 136/82 Pulse Oximetry 97 100 100 Oxygen Delivery Room Air Intake/Output Intake/Output: Intake & Output 09/18/23 09/19/23 09/20/23 09/21/23 23:59 23:59 23:59 23:59 Intake Total 3150 3530 1850 2546 Output Total 1100 1200 Balance 3150 2430 650 2546 Meds/Results Medications: Active Medications Generic Name Dose Route Start Last Admin Trade Name Freq PRN Reason Stop Dose Admin Acetaminophen 650 mg 09/20/23 15:53 09/20/23 16:15 Acetaminophen 325 Mg Tablet PO 650 mg Q6H PRN Administration Mild Pain (1-3) or Fever Hydrocodone Bitart/Acetaminophen 1 tab 09/20/23 15:53 Hydrocodone/Acetaminophen (*Crx) 5-325 Mg Tablet PO Q6H PRN Pain Rated 4-6 Dextrose 12.5 gm 09/19/23 00:12 Dextrose 50% 25 Gm/50 Ml Syringe IV PUSH PRN PRN Hypoglycemia Protocol Glucagon 1 mg 09/19/23 00:12 Glucagon For Inj 1 Mg Vial IM PRN PRN Hypoglycemia Protocol Glucose 15 gm 09/19/23 00:12 Glucose Oral Gel 15 Gm Of Glucse In 37.5 Gm Tube PO PRN PRN Hypoglycemia Protocol Cefepime HCl 2 gm in 50 mls @ 100 mls/hr 09/19/23 08:00 09/21/23 12:29 Maxipime 2 Gm/Ns 50 Ml IVPB 100 mls/hr Q12H ROBBY Administration Metronidazole 500 mg in 100 mls @ 100 mls/hr 09/19/23 06:00 09/21/23 05:44 Flagyl 500 Mg/Iso Soln 100 Ml IVPB 100 mls/hr Q8H ROBBY Administration Dextrose 1,000 mls @ 100 mls/hr 09/19/23 00:12 Dextrose 5% 1,000 Ml IVPB PRN PRN Hypoglycemia Protocol Vancomycin HCl 1,750 mg in 500 mls @ 130 mls/hr 09/21/23 16:00 Vancomycin 1,750 Mg/Ns 500 Ml IVPB Q8H ROBBY
--- NOTE | 2023-09-21 13:24 | PM.IMPN ---
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 Left foot x-ray with no osseous abnormality or foreign bodies. Patient started on vancomycin, cefepime and Flagyl per antibiotic stewardship. Wound Care consulted. General surgery consulted. Blood cultures no growth to date. Wound culture no growth. Postop day 1 I&D (2) Diabetes mellitus: Code(s): E11.9 - Type 2 diabetes mellitus without complications Status: Acute Assessment and Plan: patient does not take any medications for his diabetes. Education was given on the importance of tight glycemic control. States that he has been taking 25 units of his mother's insulin daily. clinical informatics educator consulted. A1c > 14. 22 units of Lantus and low-dose slide ordered. [id number] protocol ordered Subjective Date/time seen: 09/21/23 13:24 Interval history: patient was running fevers after his surgery yesterday but today has been afebrile. He states that he is feeling much better and denies any nausea at this time. Much more comfortable than yesterday. Continue IV antibiotics. He denies any pain at this time. Exam Narrative: GENERAL: Comfortable, no acute distress HENMT: moist mucous membranes EYES: EOM intact b/l NECK: no lymphadenopathy RESPIRATORY: clear to auscultation CARDIO: RRR GI: soft, nontender, bowel sounds present SKIN: no rashes EXTREMITIES: left foot bandaged, dry and intact Objective Data Vital Signs Vital Signs: Vital Signs - 24 hr 09/20/23 13:30 09/20/23 15:00 09/20/23 16:15 Temperature 99.6 F 99.9 F H 99.9 F H Pulse Rate 93 96 Respiratory Rate 18 18 Blood Pressure 143/89 H 146/90 H Pulse Oximetry 100 100 Oxygen Delivery 02/02/24 17:29 09/20/23 17:15 09/20/23 20:00 Temperature 103.7 F H 101.3 F H Pulse Rate 105 H Respiratory Rate 18 Blood Pressure 137/69 Pulse Oximetry 97 97 Oxygen Delivery Room Air 09/20/23 21:55 09/21/23 05:52 09/21/23 08:00 Temperature 98.2 F 97.8 F Pulse Rate 92 89 89 Respiratory Rate 16 20 20 Blood Pressure 114/66 136/82 Pulse Oximetry 97 100 100 Oxygen Delivery Room Air Intake/Output Intake/Output: Intake & Output 09/18/23 09/19/23 09/20/23 09/21/23 23:59 23:59 23:59 23:59 Intake Total 3150 3530 1850 2546 Output Total 1100 1200 Balance 3150 2430 650 2546 Meds/Results Medications: Active Medications Generic Name Dose Route Start Last Admin Trade Name Freq PRN Reason Stop Dose Admin Acetaminophen 650 mg 09/20/23 15:53 09/20/23 16:15 Acetaminophen 325 Mg Tablet PO 650 mg Q6H PRN Administration Mild Pain (1-3) or Fever Hydrocodone Bitart/Acetaminophen 1 tab 09/20/23 15:53 Hydrocodone/Acetaminophen (*Crx) 5-325 Mg Tablet PO Q6H PRN Pain Rated 4-6 Dextrose 12.5 gm 09/19/23 00:12 Dextrose 50% 25 Gm/50 Ml Syringe IV PUSH PRN PRN Hypoglycemia Protocol Glucagon 1 mg 09/19/23 00:12 Glucagon For Inj 1 Mg Vial IM PRN PRN Hypoglycemia Protocol Glucose 15 gm 09/19/23 00:12 Glucose Oral Gel 15 Gm Of Glucse In 37.5 Gm Tube PO PRN PRN Hypoglycemia Protocol Cefepime HCl 2 gm in 50 mls @ 100 mls/hr 09/19/23 08:00 09/21/23 12:29 Maxipime 2 Gm/Ns 50 Ml IVPB 100 mls/hr Q12H ROBBY Administra
[2023-09-21 14:43] VITALS: BP 134/86; PULSE 86; RESP 20; TEMP 36.6; O2SAT 98
[2023-09-21] MEDS: VANCOMYCIN 1,750 MG/NS 500 ML 1,750 MG/500 ML BAG 130 MG IVPB (16:18)
[2023-09-21 16:37] LABS: Glucose Point of Care 235 mg/dl (65-105)
[2023-09-21] MEDS: INSULIN ASPART (*BKC) 100 UNITS/ML SUB-Q ×2 (17:55→20:58)
[2023-09-21 19:22] VITALS: O2SAT 98
[2023-09-21 20:57] LABS: Glucose Point of Care 233 mg/dl (65-105)
[2023-09-21] MEDS: INSULIN GLARGINE (*BKC) 100 UNITS/ML 22 UNITS SUB-Q (20:58)
[2023-09-21 21:30] VITALS: BP 141/82; PULSE 98; RESP 18; TEMP 37.4; O2SAT 98
[2023-09-22] MEDS: VANCOMYCIN 1,750 MG/NS 500 ML 1,750 MG/500 ML BAG 125 MG IVPB (00:03)
[2023-09-22] MEDS: metroNIDAZOLE 500 MG/ISO 100ML 500 MG/100 ML BAG 100 MG IVPB ×3 (05:00→20:44)
[2023-09-22 06:06] VITALS: BP 137/79; PULSE 91; RESP 18; TEMP 37.3; O2SAT 97
[2023-09-22 07:21] LABS: Alanine Aminotransferase 30 U/L (6-50); Albumin Level 2.8 g/dL (3.5-5.1); Alkaline Phosphatase 504 U/L (38-126); Anion Gap 7 mmol/L (8-16); Aspartate Amino Transferase 34 U/L (17-59); Bilirubin,Total 0.4 mg/dL (0.2-1.3); Blood Urea Nitrogen 9 mg/dL (9-20); Calcium 7.8 mg/dL (8.4-10.2); Carbon Dioxide 25 mmol/L (22-30); Chloride 105 mmol/L (98-107); Estimated CRCL calculation 157 ml/min; Estimated Glomerular Filt Rate > 60; Glucose 199 mg/dL (65-110); Potassium 3.5 mmol/L (3.4-5.0); Sodium 137 mmol/L (137-145)
[2023-09-22 07:23] LABS: Basophils Absolute Auto 0.1 K/mm3 (0.0-0.1); Basophils Percent Auto 0.7 % (0.2-1.2); Eosinophils Absolute Auto 0.2 K/mm3 (0-0.3); Eosinophils Percent Auto 1.3 % (0-4.4); Hematocrit 32.1 % (42.0-52.0); Immature Granulocyte Absolute 0.15 K/mm3 (0.00-0.031); Immature Granulocyte Percent A 1.3 % (0-0.5); Lymphocytes Absolute Auto 2.78 K/mm3 (0.9-3.2); Lymphocytes Percent Auto 23.2 % (18.3-44.2); Mean Corpuscular HGB Conc 31.2 g/dl (32-36); Mean Corpuscular Hemoglobin 26.7 pg (26-34); Mean Corpuscular Volume 85.6 fl (80-100); Mean Platelet Volume 9.3 fl (7.4-10.4); Monocytes Absolute Auto 1.1 K/mm3 (0.1-0.6); Monocytes Percent Auto 9.1 % (2.6-8.5); Neutrophils Absolute Auto 7.8 K/mm3 (1.3-6.7); Neutrophils Percent Auto 64.4 % (45.5-73.1); Platelet Count Result 446 k/mm3 (150-375); Red Blood Count 3.75 M/mm3 (4.6-6.20); Red Cell Distribution Width 13.2 % (11.5-14.5)
[2023-09-22 07:30] LABS: Vancomycin Trough 29.2 ug/mL (10.0-20.0)
[2023-09-22 07:51] LABS: Glucose Point of Care 179 mg/dl (65-105)
[2023-09-22] MEDS: CEFEPIME 2 GM/NS 50 ML 2 GM/50 ML BAG IVPB ×2 (08:32→20:44)
--- NOTE | 2023-09-22 11:52 | WPDPN ---
Progress Note: A&P Assessment and Plan (1) Diabetic foot ulcer: Qualifiers: Diabetes mellitus type: type 2 Diabetic foot ulcer location: midfoot Laterality: left Non-pressure ulcer stage: limited to breakdown of skin Qualified Code(s): E11.621 - Type 2 diabetes mellitus with foot ulcer; L97.421 - Non-pressure chronic ulcer of left heel and midfoot limited to breakdown of skin Code(s): E11.621 - Type 2 diabetes mellitus with foot ulcer; L97.509 - Non-pressure chronic ulcer of other part of unspecified foot with unspecified severity Status: Acute Assessment and Plan: Postop day 2 after incision drainage of large left dorsal lateral diabetic foot abscess. Infectious seems to be slowly improving. There is less purulent drainage. Continue packing of the wound for now and continue on IV antibiotics. Continue present management. Diabetes management as per hospitalist. Subjective Date/time seen: 09/22/23 11:52 Interval history: Patient continues to improve. White blood cell count stable 12,000. No pain in the left foot. Blood sugars are running in the 150s. Management as per hospitalist team. Exam Extrem: Other: Left foot with decreased swelling and decreasing redness over the lateral left forefoot. Open areas packed with quarter-inch iodoform gauze and there is less purulent drainage today. Objective Data Vital Signs Vital Signs: Vital Signs - 24 hr 09/21/23 14:43 09/21/23 19:22 09/21/23 21:30 Temperature 36.6 C 37.4 C Pulse Rate 86 98 Respiratory Rate 20 18 Blood Pressure 134/86 141/82 H Pulse Oximetry 98 98 98 Oxygen Delivery Room Air 09/22/23 06:06 Temperature 37.3 C Pulse Rate 91 Respiratory Rate 18 Blood Pressure 137/79 Pulse Oximetry 97 Oxygen Delivery Intake/Output Intake/Output: Intake & Output 09/19/23 09/20/23 09/21/23 09/22/23 23:59 23:59 23:59 23:59 Intake Total 3530 1850 4154 1030 Output Total 1100 1200 Balance 2430 650 4154 1030 Meds/Results Medications: Active Medications Generic Name Dose Route Start Last Admin Trade Name Freq PRN Reason Stop Dose Admin Acetaminophen 650 mg 09/20/23 15:53 09/20/23 16:15 Acetaminophen 325 Mg Tablet PO 650 mg Q6H PRN Administration Mild Pain (1-3) or Fever Hydrocodone Bitart/Acetaminophen 1 tab 09/20/23 15:53 Hydrocodone/Acetaminophen (*Crx) 5-325 Mg Tablet PO Q6H PRN Pain Rated 4-6 Dextrose 12.5 gm 09/19/23 00:12 Dextrose 50% 25 Gm/50 Ml Syringe IV PUSH PRN PRN Hypoglycemia Protocol Glucagon 1 mg 09/19/23 00:12 Glucagon For Inj 1 Mg Vial IM PRN PRN Hypoglycemia Protocol Glucose 15 gm 09/19/23 00:12 Glucose Oral Gel 15 Gm Of Glucse In 37.5 Gm Tube PO PRN PRN Hypoglycemia Protocol Cefepime HCl 2 gm in 50 mls @ 100 mls/hr 09/19/23 08:00 09/22/23 08:32 Maxipime 2 Gm/Ns 50 Ml IVPB 100 mls/hr Q12H ROBBY Administration Metronidazole 500 mg in 100 mls @ 100 mls/hr 09/19/23 06:00 09/22/23 05:00 Flagyl 500 Mg/Iso Soln 100 Ml IVPB 100 mls/hr Q8H ROBBY Administration Dextrose 1,000 mls @ 100 mls/hr 09/19/23 00:12 Dextrose 5% 1,000 Ml IVPB PRN PRN Hypoglycemia Protocol Vancomycin HCl 1,750 mg in 500 mls @ 130 mls/hr 09/23/23 00:00 Vancomycin 1,750 Mg/Ns 500 Ml IVPB Q12H ROBBY Insulin Aspart 2 - 5 units 09/19/23 17:00 09/22/23 08:32 Insulin Aspart (*Bkc) 100 Units/Ml SUB-Q Not Given TIDWM [facility] Protocol Insulin Aspart 1 - 2 units 09/19/23 21:00 09/21/23 20:58 Insulin Aspart (*Bkc) 100 Units/Ml SUB-Q 1 units HS [facility] Administration Protocol Insulin Glargine 22 units 09/19/23 21:00 09/21/23 20:58 Insulin Glargine (*Bkc) 100 Units/Ml 0.25 units/kg (22 units) 22 units SUB-Q Administration [facility] Morphine Sulfate 1 mg 09/20/23 15:53 09/20/23 16:14 Morphine Sulfate (*Crx) 2 Mg/Ml Inj IV PUSH 1 mg Q4H PRN
[2023-09-22 11:53] LABS: Glucose Point of Care 201 mg/dl (65-105)
--- NOTE | 2023-09-22 13:24 | PM.IMPN ---
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 Left foot x-ray with no osseous abnormality or foreign bodies. Patient started on vancomycin, cefepime and Flagyl per antibiotic stewardship. Wound Care consulted. General surgery consulted. Blood cultures no growth to date. Wound culture no growth. Postop day 2 I&D Postop shoe ordered for the patient to ambulate with. Weight-bearing only on the forefoot. (2) Diabetes mellitus: Code(s): E11.9 - Type 2 diabetes mellitus without complications Status: Acute Assessment and Plan: patient does not take any medications for his diabetes. Education was given on the importance of tight glycemic control. States that he has been taking 25 units of his mother's insulin daily. supervisor [employer] consulted. A1c > 14. 22 units of Lantus and low-dose slide ordered. Hypoglycemic protocol ordered Sugars maintaining in the 150s Subjective Date/time seen: 09/22/23 13:24 Interval history: Patient doing well today. He denies any nausea, vomiting, fevers or chills at the time but does states that overnight he did have some nausea. On review of his vital signs he has not spiked a fever since after his surgery. He does have a surgical shoe on. Consider deceleration of antibiotics once okay with the surgery team as well as discharge within the next day or 2. Exam Narrative: GENERAL: Comfortable, no acute distress HENMT: moist mucous membranes EYES: EOM intact b/l NECK: no lymphadenopathy RESPIRATORY: clear to auscultation CARDIO: RRR GI: soft, nontender, bowel sounds present SKIN: no rashes EXTREMITIES: left foot bandaged, dry and intact, surgical shoe in place. Objective Data Vital Signs Vital Signs: Vital Signs - 24 hr 09/21/23 14:43 02/03/24 19:22 09/21/23 21:30 Temperature 97.9 F 99.4 F Pulse Rate 86 98 Respiratory Rate 20 18 Blood Pressure 134/86 141/82 H Pulse Oximetry 98 98 98 Oxygen Delivery Room Air 09/22/23 06:06 Temperature 99.2 F Pulse Rate 91 Respiratory Rate 18 Blood Pressure 137/79 Pulse Oximetry 97 Oxygen Delivery Intake/Output Intake/Output: Intake & Output 09/19/23 09/20/23 09/21/23 09/22/23 23:59 23:59 23:59 23:59 Intake Total 3530 1850 4154 1560 Output Total 1100 1200 Balance 2430 650 4154 1560 Meds/Results Medications: Active Medications Generic Name Dose Route Start Last Admin Trade Name Freq PRN Reason Stop Dose Admin Acetaminophen 650 mg 09/20/23 15:53 09/20/23 16:15 Acetaminophen 325 Mg Tablet PO 650 mg Q6H PRN Administration Mild Pain (1-3) or Fever Hydrocodone Bitart/Acetaminophen 1 tab 09/20/23 15:53 Hydrocodone/Acetaminophen (*Crx) 5-325 Mg Tablet PO Q6H PRN Pain Rated 4-6 Dextrose 12.5 gm 09/19/23 00:12 Dextrose 50% 25 Gm/50 Ml Syringe IV PUSH PRN PRN Hypoglycemia Protocol Glucagon 1 mg 09/19/23 00:12 Glucagon For Inj 1 Mg Vial IM PRN PRN Hypoglycemia Protocol Glucose 15 gm 09/19/23 00:12 Glucose Oral Gel 15 Gm Of Glucse In 37.5 Gm Tube PO PRN PRN Hypoglycemia Protocol Cefepime HCl 2 gm in 50 mls @ 100 mls/hr 09/19/23 08:00 09/22/23 09:02 Maxipime 2 Gm/Ns 50 Ml IVPB Infused Q12H ROBBY Infusion Metronidazole 500 mg in
[2023-09-22] MEDS: INSULIN ASPART (*BKC) 100 UNITS/ML SUB-Q ×2 (13:34→20:45)
[2023-09-22 13:49] VITALS: BP 135/81; PULSE 94; RESP 20; TEMP 36.3; O2SAT 98
[2023-09-22 16:35] LABS: Glucose Point of Care 168 mg/dl (65-105)
[2023-09-22 20:29] LABS: Glucose Point of Care 240 mg/dl (65-105)
[2023-09-22 20:35] VITALS: BP 148/92; PULSE 85; RESP 16; TEMP 36.6; O2SAT 98
[2023-09-22] MEDS: INSULIN GLARGINE (*BKC) 100 UNITS/ML 22 UNITS SUB-Q (20:45)
[2023-09-22] MEDS: guaiFENesin/DEXTROMETHORPHAN 10 ML UDC 5 ML PO (22:24)
[2023-09-22] MEDS: ONDANSETRON INJ 4 MG/2 ML VIAL IV PUSH (22:27)
[2023-09-22] MEDS: BENZOCAINE/MENTHOL (*BKC) 18 EA LOZENGE 1 LOZENGE PO (23:48)
[2023-09-22] MEDS: VANCOMYCIN 1,750 MG/NS 500 ML 1,750 MG/500 ML BAG 130 MG IVPB (23:48)
[2023-09-23 00:42] VITALS: BMI 32.8
--- NOTE | 2023-09-23 04:39 | PC.NURSE ---
Pt started having coughing spells inducing nauseousness/vomiting. FRONT OFFICE ATTENDANT aware and orders received and followed through. Pt denies nausea/vomiting after initial dose of zofran and no coughing spells since guiefenesin/lozanges administered. Continued monitoring. Pt currently sleeping in bed comfortably.
[2023-09-23] MEDS: metroNIDAZOLE 500 MG/ISO 100ML 500 MG/100 ML BAG 100 MG IVPB ×3 (05:15→21:16)
[2023-09-23 05:31] VITALS: BP 144/95; PULSE 88; RESP 18; TEMP 36.6; O2SAT 96
[2023-09-23 06:38] LABS: Basophils Absolute Auto 0.1 K/mm3 (0.0-0.1); Basophils Percent Auto 0.4 % (0.2-1.2); Eosinophils Absolute Auto 0.2 K/mm3 (0-0.3); Eosinophils Percent Auto 1.2 % (0-4.4); Hematocrit 32.2 % (42.0-52.0); Hemoglobin 10.1 g/dL (14.0-18.0); Immature Granulocyte Absolute 0.15 K/mm3 (0.00-0.031); Immature Granulocyte Percent A 1.1 % (0-0.5); Lymphocytes Absolute Auto 2.82 K/mm3 (0.9-3.2); Lymphocytes Percent Auto 21.3 % (18.3-44.2); Mean Corpuscular HGB Conc 31.4 g/dl (32-36); Mean Corpuscular Hemoglobin 26.5 pg (26-34); Mean Corpuscular Volume 84.5 fl (80-100); Mean Platelet Volume 9.1 fl (7.4-10.4); Monocytes Absolute Auto 1.1 K/mm3 (0.1-0.6); Monocytes Percent Auto 8.1 % (2.6-8.5); Neutrophils Percent Auto 67.9 % (45.5-73.1); Platelet Count Result 528 k/mm3 (150-375); Red Blood Count 3.81 M/mm3 (4.6-6.20); Red Cell Distribution Width 13.2 % (11.5-14.5); White Blood Count 13.3 K/mm3 (4.5-10.0)
[2023-09-23 06:48] LABS: Anion Gap 5 mmol/L (8-16); Blood Urea Nitrogen 7 mg/dL (9-20); Calcium 8.1 mg/dL (8.4-10.2); Carbon Dioxide 28 mmol/L (22-30); Chloride 106 mmol/L (98-107); Estimated CRCL calculation 157 ml/min; Estimated Glomerular Filt Rate > 60; Glucose 167 mg/dL (65-110); Potassium 3.4 mmol/L (3.4-5.0); Sodium 139 mmol/L (137-145)
[2023-09-23 07:23] LABS: Cholesterol 147 mg/dL (0-200); HDL Direct 21 mg/dL; Triglycerides 204 mg/dL (<150)
[2023-09-23 07:37] LABS: LDL Cholesterol Direct 77 mg/dL
[2023-09-23 08:21] LABS: Glucose Point of Care 163 mg/dl (65-105)
[2023-09-23] MEDS: HYDROcodone/acetaminophen (*CRX) 5-325 MG TABLET 1 TAB PO ×2 (10:29→17:11)
[2023-09-23] MEDS: ENOXAPARIN 40 MG/0.4 ML SYRINGE SUB-Q (10:29)
[2023-09-23 11:48] LABS: Glucose Point of Care 197 mg/dl (65-105)
[2023-09-23] MEDS: LIDOCAINE HCL 1% PF INJ 5 ML VIAL INFILTRATE (13:20)
--- NOTE | 2023-09-23 13:42 | PM.PNGS ---
Progress Note: A&P Assessment and Plan (1) Diabetic foot ulcer: Qualifiers: Diabetes mellitus type: type 2 Diabetic foot ulcer location: midfoot Laterality: left Non-pressure ulcer stage: limited to breakdown of skin Qualified Code(s): E11.621 - Type 2 diabetes mellitus with foot ulcer; L97.421 - Non-pressure chronic ulcer of left heel and midfoot limited to breakdown of skin Code(s): E11.621 - Type 2 diabetes mellitus with foot ulcer; L97.509 - Non-pressure chronic ulcer of other part of unspecified foot with unspecified severity Status: Acute Assessment and Plan: Postop day 3 after incision drainage of large left dorsal lateral diabetic foot abscess. Infection continues to slowly improve. Still minimal purulence drainage, but this has been improving. White blood cell count is up slightly to 13,000. Continue IV antibiotics. Continue packing the wound with quarter-inch iodoform daily. May need to consider taking him back to the OR in the next few days for further incision and drainage if he is not progressing as expected. Plan I have discussed the patient's case and plan of care with Dr. Boone. Subjective Subjective Date/Time Seen: 09/23/23 13:42 Post Op day: 3 (I&D left diabetic foot ulcer) Patient reports: no new complaints and afebrile Interval history: Chart reviewed since last seen. No new complaints. Overall swelling and redness has reportedly improved. White blood cell count today was 13,000. This is up slightly over the past few days. Review of Systems Review of Systems: All systems reviewed & are unremarkable except as noted in HPI and below Exam Narrative: Left foot dressing removed. Erythema and swelling in the left foot improved. Still an open wound that is being packed with 1/4 iodoform gauze, which was removed. Able to still probe this open incision and the Qtip goes through to the plantar opening where there is a callus, this goes through on the lateral side of the 5th metatarsal. Very minimal purulent drainage coming from the wound. There is tunneling that goes about 3 cm medially both on the plantar and dorsal openings. Const: General: comfortable and no acute distress Orientation/consciousness: patient oriented x3 Objective Data Vital Signs Vital Signs: Vital Signs - 24 hr 09/22/23 13:49 09/22/23 20:35 09/22/23 20:00 Temperature 97.4 F L 97.8 F Pulse Rate 94 85 Respiratory Rate 20 16 Blood Pressure 135/81 148/92 H Pulse Oximetry 98 98 Oxygen Delivery Room Air 09/23/23 05:31 Temperature 97.8 F Pulse Rate 88 Respiratory Rate 18 Blood Pressure 144/95 H Pulse Oximetry 96 Oxygen Delivery Intake/Output Intake/Output: Intake & Output 09/20/23 09/21/23 09/22/23 09/23/23 23:59 23:59 23:59 23:59 Intake Total 1850 4154 1960 960 Output Total 1200 0 Balance 650 4154 1960 960 Meds/Results Medications: Active Medications Generic Name Dose Route Start Last Admin Trade Name Freq PRN Reason Stop Dose Admin Acetaminophen 650 mg 09/20/23 15:53 09/20/23 16:15 Acetaminophen 325 Mg Tablet PO 650 mg Q6H PRN Administration Mild Pain (1-3) or Fever Hydrocodone Bitart/Acetaminophen 1 tab 09/20/23 15:53 09/23/23 10:29 Hydrocodone/Acetaminophen (*Crx) 5-325 Mg Tablet PO 1 tab Q6H PRN Administration Pain Rated 4-6 Benzocaine 1 lozenge 09/22/23 21:56 09/22/23 23:48 Benzocaine/Menthol (*Bkc) 18 Ea Lozenge PO 1 lozenge PRN PRN Administration Sore Throat Dextrose 12.5 gm 09/19/23 00:12 Dextrose 50% 25 Gm/50 Ml Syringe IV PUSH PRN PRN Hypoglycemia Protocol Enoxaparin Sodium 40 mg 09/23/23 09:00 09/23/23 10:29 Enoxaparin 40 Mg/0.4 Ml Syringe SUB-Q 40 mg DAILY ROBBY Administration Glucagon 1 mg 09/19/23 00:12 Glucagon For Inj 1 Mg Vial IM PRN PRN Hypoglycemia Protocol Glucose 15 gm 09/19/23 00:12 Glucose Oral Gel 15 Gm Of Glucse In 37.5 Gm Tu
--- NOTE | 2023-09-23 14:15 | PM.IMPN ---
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 Left foot x-ray with no osseous abnormality or foreign bodies. Patient started on vancomycin, cefepime and Flagyl per antibiotic stewardship. Wound Care consulted. General surgery consulted. Blood cultures no growth to date. Wound culture no growth. Postop day 3 I&D Postop shoe ordered for the patient to ambulate with. Weight-bearing only on the forefoot. Spoke with General surgery about patient's antibiotics and outlook on patient's stay. They believed that patient will need several more days of IV antibiotics due to the continued pus from patient's wound. Possibility of taking patient back to the OR for an additional I and D. Due to patient needing ongoing IV antibiotics a PICC line placed. (2) Diabetes mellitus: Code(s): E11.9 - Type 2 diabetes mellitus without complications Status: Acute Assessment and Plan: patient does not take any medications for his diabetes. Education was given on the importance of tight glycemic control. States that he has been taking 25 units of his mother's insulin daily. childbirth educator consulted. A1c > 14. 22 units of Lantus and low-dose slide ordered. Hypoglycemic protocol ordered Sugars maintaining in the 150s (3) Cough: Code(s): R05.9 - Cough, unspecified Status: Acute Assessment and Plan: Patient having a cough for the past couple days. Flu and COVID swabs are negative. Chest x-ray ordered. Viky escobar for cough Subjective Date/time seen: 09/23/23 14:15 Interval history: Patient has been experiencing a cough for the past couple days and worsened at night. He continues IV antibiotics . Patient has infiltrated to IV lines. Due to ongoing antibiotic therapy and likelihood the patient will need several more days of it a PICC line was placed. Soap with Dr. Boone today about patient's care and he believes patient will need several more days of IV antibiotic therapy in the hospital as well as possibly needing to go back to the OR for another I& D. Will continue to monitor. Patient's blood sugars are improving. Will need insulin at discharge. Exam Narrative: GENERAL: Comfortable, no acute distress HENMT: moist mucous membranes EYES: EOM intact b/l NECK: no lymphadenopathy RESPIRATORY: clear to auscultation CARDIO: RRR GI: soft, nontender, bowel sounds present SKIN: no rashes EXTREMITIES: left foot bandaged, dry and intact, surgical shoe in place. Objective Data Vital Signs Vital Signs: Vital Signs - 24 hr 09/22/23 20:35 09/22/23 20:00 09/23/23 05:31 Temperature 97.8 F 97.8 F Pulse Rate 85 88 Respiratory Rate 16 18 Blood Pressure 148/92 H 144/95 H Pulse Oximetry 98 96 Oxygen Delivery Room Air Intake/Output Intake/Output: Intake & Output 09/20/23 09/21/23 09/22/23 09/23/23 23:59 23:59 23:59 23:59 Intake Total 1850 4154 1960 960 Output Total 1200 0 Balance 650 4154 1960 960 Meds/Results Medications: Active Medications Generic Name Dose Route Start Last Admin Trade Name Freq PRN Reason Stop Dose Admin Acetaminophen 650 mg 09/20/23 15:53 09/20/23 16:15 Acetaminophen 325 Mg Tablet PO 650 mg Q6H PRN Administration Mild Pain (1-3) or Fever [place]
[2023-09-23] MEDS: CEFEPIME 2 GM/NS 50 ML 2 GM/50 ML BAG IVPB ×2 (14:24→14:45)
--- NOTE | 2023-09-23 14:51 | PC.NURSE ---
Pt IV infilrated with arm extremely warm and very tender to even slightest touch. MDs made aware. Discussion of possible US to check for DVT. Called pharmacy to retime all IV antibiotics r/t lack of IV access.
[2023-09-23] MEDS: POTASSIUM CHLORIDE 20 MEQ ER TABLET PO (15:05)
[2023-09-23] MEDS: CENTRAL LINE FLUSH 10 ML IV PUSH ×2 (15:09→21:17)
[2023-09-23] MEDS: VANCOMYCIN 1,750 MG/NS 500 ML 1,750 MG/500 ML BAG 130 MG IVPB (15:10)
[2023-09-23 16:01] VITALS: BMI 32.8
[2023-09-23 16:06] VITALS: BP 134/79; PULSE 90; RESP 16; TEMP 36.8; O2SAT 93
[2023-09-23 17:43] LABS: Glucose Point of Care 144 mg/dl (65-105)
[2023-09-23 21:05] LABS: Glucose Point of Care 145 mg/dl (65-105)
[2023-09-23 21:08] VITALS: BP 139/90; PULSE 88; RESP 17; TEMP 36.6; O2SAT 99
[2023-09-23] MEDS: INSULIN GLARGINE (*BKC) 100 UNITS/ML 22 UNITS SUB-Q (21:11)
[2023-09-24] MEDS: ONDANSETRON INJ 4 MG/2 ML VIAL IV PUSH (01:36)
[2023-09-24] MEDS: HYDROcodone/acetaminophen (*CRX) 5-325 MG TABLET 1 TAB PO (03:26)
[2023-09-24] MEDS: VANCOMYCIN 1,750 MG/NS 500 ML 1,750 MG/500 ML BAG 130 MG IVPB (03:26)
[2023-09-24] MEDS: CEFEPIME 2 GM/NS 50 ML 2 GM/50 ML BAG IVPB ×2 (03:26→15:04)
[2023-09-24 06:10] VITALS: BP 138/60; PULSE 92; RESP 18; TEMP 38.1; O2SAT 98
[2023-09-24] MEDS: CENTRAL LINE FLUSH 10 ML IV PUSH ×3 (06:13→21:10)
[2023-09-24] MEDS: metroNIDAZOLE 500 MG/ISO 100ML 500 MG/100 ML BAG 100 MG IVPB ×3 (06:13→21:02)
[2023-09-24 06:55] LABS: Basophils Absolute Auto 0.1 K/mm3 (0.0-0.1); Basophils Percent Auto 0.4 % (0.2-1.2); Eosinophils Absolute Auto 0.1 K/mm3 (0-0.3); Eosinophils Percent Auto 1.2 % (0-4.4); Hematocrit 30.3 % (42.0-52.0); Hemoglobin 9.5 g/dL (14.0-18.0); Immature Granulocyte Absolute 0.08 K/mm3 (0.00-0.031); Immature Granulocyte Percent A 0.7 % (0-0.5); Lymphocytes Absolute Auto 2.71 K/mm3 (0.9-3.2); Lymphocytes Percent Auto 24.1 % (18.3-44.2); Mean Corpuscular HGB Conc 31.4 g/dl (32-36); Mean Corpuscular Hemoglobin 26.8 pg (26-34); Mean Corpuscular Volume 85.4 fl (80-100); Monocytes Absolute Auto 0.8 K/mm3 (0.1-0.6); Neutrophils Absolute Auto 7.5 K/mm3 (1.3-6.7); Neutrophils Percent Auto 66.6 % (45.5-73.1); Platelet Count Result 476 k/mm3 (150-375); Red Blood Count 3.55 M/mm3 (4.6-6.20); Red Cell Distribution Width 13.2 % (11.5-14.5); White Blood Count 11.3 K/mm3 (4.5-10.0)
[2023-09-24 07:05] LABS: Anion Gap 0 mmol/L (8-16); Blood Urea Nitrogen 6 mg/dL (9-20); Calcium 7.8 mg/dL (8.4-10.2); Carbon Dioxide 31 mmol/L (22-30); Chloride 106 mmol/L (98-107); Estimated CRCL calculation 157 ml/min; Estimated Glomerular Filt Rate > 60; Glucose 118 mg/dL (65-110); Potassium 3.2 mmol/L (3.4-5.0); Sodium 137 mmol/L (137-145)
[2023-09-24 08:58] LABS: Glucose Point of Care 113 mg/dl (65-105)
[2023-09-24] MEDS: ENOXAPARIN 40 MG/0.4 ML SYRINGE SUB-Q (09:45)
[2023-09-24] MEDS: POTASSIUM CHLORIDE 20 MEQ ER TABLET 40 MEQ PO (09:48)
[2023-09-24 11:17] LABS: Glucose Point of Care 137 mg/dl (65-105)
--- NOTE | 2023-09-24 13:01 | PM.PNGS ---
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 Although improved, he is still having purulent drainage coming from his left foot wound and his WBC count remains slightly elevated between 11-13k. He also had a low grade fever early this morning. Discussed the case with Dr. Boone and he recommends taking him back to the OR tomorrow for further incision and drainage of the diabetic left foot abscess. Description of the procedure, risks, benefits, and alternatives were discussed with the patient in detail. He agrees to proceed. Will make the patient NPO after midnight. Continue IV abx. Subjective Subjective Date/Time Seen: 09/24/23 13:01 Post Op day: 4 (I&D left diabetic foot ulcer) Patient reports: fever (Low-grade temp a 100.5? F overnight) Interval history: Patient complaining of a cough today. Apparently he has been coughing for a few days. He was tested for COVID, influenza A/B, RSV and negative for all of them 4 days ago. He reports having some soreness in his abdomen that he feels is related to coughing so much. No complaints about his left foot wound or any issues overnight with his wound. Exam Narrative: Left foot dressing removed. Erythema and swelling of the dorsal left forefoot improved. Still an open wound that is being packed with 1/4 iodoform gauze, which was removed. Able to still probe this open incision and the Qtip goes through to the plantar opening where there is a callus, this goes through on the lateral side of the 5th metatarsal. Very minimal purulent drainage coming from the wound mostly from the plantar wound. There is tunneling that goes about 3 cm medially both on the plantar and dorsal openings. There is also some red streaking across the plantar foot extending towards the 1st metatarsal. Objective Data Vital Signs Vital Signs: Vital Signs - 24 hr 09/23/23 16:06 09/23/23 21:08 09/23/23 20:00 Temperature 98.2 F 97.8 F Pulse Rate 90 88 Respiratory Rate 16 17 Blood Pressure 134/79 139/90 Pulse Oximetry 93 99 Oxygen Delivery Room Air 09/24/23 06:10 09/24/23 08:00 Temperature 100.5 F H Pulse Rate 92 Respiratory Rate 18 Blood Pressure 138/60 Pulse Oximetry 98 Oxygen Delivery Room Air Intake/Output Intake/Output: Intake & Output 09/21/23 09/22/23 09/23/23 09/24/23 23:59 23:59 23:59 23:59 Intake Total 4154 1959 1979 148 Output Total 0 Balance 4154 1959 1979 1480 Meds/Results Medications: Active Medications Generic Name Dose Route Start Last Admin Trade Name Freq PRN Reason Stop Dose Admin Acetaminophen 650 mg 09/20/23 15:53 09/20/23 16:15 Acetaminophen 325 Mg Tablet PO 650 mg Q6H PRN Administration Mild Pain (1-3) or Fever Hydrocodone Bitart/Acetaminophen 1 tab 09/20/23 15:53 09/24/23 03:26 Hydrocodone/Acetaminophen (*Crx) 5-325 Mg Tablet PO 1 tab Q6H PRN Administration Pain Rated 4-6 Benzocaine 1 lozenge 09/22/23 21:56 09/22/23 23:48 Benzocaine/Menthol (*Bkc) 18 Ea Lozenge PO 1 lozenge PRN PRN Administration Sore Throat Dextrose 12.5 gm 09/19/23 00:12 Dextrose 50% 25 Gm/50 Ml Syringe IV PUSH PRN PRN Hypoglycemia Protocol Enoxaparin Sodium 40 mg 09/23/23 09:00 09/24/23 09:45 Enoxaparin 40 Mg/0.4 Ml Syringe SUB-Q 40 mg DAILY ROBBY Administration
[2023-09-24 14:00] VITALS: BP 146/88; PULSE 85; RESP 20; TEMP 36.8; O2SAT 97
--- NOTE | 2023-09-24 14:33 | P.PNIM_ITS ---
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 * Left foot x-ray with no osseous abnormality or foreign bodies. * Patient started on vancomycin, cefepime and Flagyl per antibiotic stewardship. * Wound Care consulted. * General surgery consulted. * Blood cultures no growth to date. * Wound culture no growth. * Postop day 4 I&D * Postop shoe ordered for the patient to ambulate with. Weight-bearing only on the forefoot. * Spoke with General surgery about patient's antibiotics and outlook on patient's stay. They believed that patient will need several more days of IV antibiotics due to the continued pus from patient's wound. Possibility of taking patient back to the OR for an additional I and D. * Due to patient needing ongoing IV antibiotics a PICC line placed. (2) Diabetes mellitus: Code(s): E11.9 - Type 2 diabetes mellitus without complications Status: Acute Assessment and Plan: patient does not take any medications for his diabetes. * Education was given on the importance of tight glycemic control. * States that he has been taking 25 units of his mother's insulin daily. * environmental educator consulted. * A1c > 14. * 22 units of Lantus and low-dose slide ordered. * Hypoglycemic protocol ordered * Sugars maintaining in the 150s (3) Cough: Code(s): R05.9 - Cough, unspecified Status: Acute Assessment and Plan: * Patient having a cough for the past couple days. * Flu and COVID swabs are negative. * Chest x-ray some subsegmental atelectasis /consolidation. * Continue to monitor. Patient is on broad antibiotic coverage thus is covered for any possible pneumonia. * Continue conservative management at this time. * Viky Silva p.r.n. for cough Subjective Date/time seen: 09/24/23 14:33 Interval history: Is suspected that patient will undergo and additional I and D tomorrow. He is still intermittently fever I will. I would recommend repeat wound culture while in the OR. I have discussed this with general surgery IRONING WORKER. Continue IV antibiotic therapy for now. Patient has PICC line placed. He is having ongoing cough but so far patient's symptoms and testing or suggestive adenovirus or some other viral syndrome. Continue to treat conservatively. Exam Narrative: GENERAL: Comfortable, no acute distress HENMT: moist mucous membranes EYES: EOM intact b/l NECK: no lymphadenopathy RESPIRATORY: clear to auscultation CARDIO: RRR GI: soft, nontender, bowel sounds present SKIN: no rashes EXTREMITIES: left foot bandaged, dry and intact, surgical shoe in place. Objective Data Vital Signs Vital Signs: Vital Signs - 24 hr 09/23/23 16:06 09/23/23 21:08 09/23/23 20:00 Temperature 98.2 F 97.8 F Pulse Rate 90 88 Respiratory Rate 16 17
--- NOTE | 2023-09-24 14:33 | PM.IMPN ---
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 Left foot x-ray with no osseous abnormality or foreign bodies. Patient started on vancomycin, cefepime and Flagyl per antibiotic stewardship. Wound Care consulted. General surgery consulted. Blood cultures no growth to date. Wound culture no growth. Postop day 4 I&D Postop shoe ordered for the patient to ambulate with. Weight-bearing only on the forefoot. Spoke with General surgery about patient's antibiotics and outlook on patient's stay. They believed that patient will need several more days of IV antibiotics due to the continued pus from patient's wound. Possibility of taking patient back to the OR for an additional I and D. Due to patient needing ongoing IV antibiotics a PICC line placed. (2) Diabetes mellitus: Code(s): E11.9 - Type 2 diabetes mellitus without complications Status: Acute Assessment and Plan: patient does not take any medications for his diabetes. Education was given on the importance of tight glycemic control. States that he has been taking 25 units of his mother's insulin daily. peanut separator consulted. A1c > 14. 22 units of Lantus and low-dose slide ordered. Hypoglycemic protocol ordered Sugars maintaining in the 150s (3) Cough: Code(s): R05.9 - Cough, unspecified Status: Acute Assessment and Plan: Patient having a cough for the past couple days. Flu and COVID swabs are negative. Chest x-ray some subsegmental atelectasis /consolidation. Continue to monitor. Patient is on broad antibiotic coverage thus is covered for any possible pneumonia. Continue conservative management at this time. Viky escobar for cough Subjective Date/time seen: 09/24/23 14:33 Interval history: Is suspected that patient will undergo and additional I and D tomorrow. He is still intermittently fever I will. I would recommend repeat wound culture while in the OR. I have discussed this with general surgery BOAT CLEANING SUPERVISOR. Continue IV antibiotic therapy for now. Patient has PICC line placed. He is having ongoing cough but so far patient's symptoms and testing or suggestive adenovirus or some other viral syndrome. Continue to treat conservatively. Exam Narrative: GENERAL: Comfortable, no acute distress HENMT: moist mucous membranes EYES: EOM intact b/l NECK: no lymphadenopathy RESPIRATORY: clear to auscultation CARDIO: RRR GI: soft, nontender, bowel sounds present SKIN: no rashes EXTREMITIES: left foot bandaged, dry and intact, surgical shoe in place. Objective Data Vital Signs Vital Signs: Vital Signs - 24 hr 09/23/23 16:06 09/23/23 21:08 09/23/23 20:00 Temperature 98.2 F 97.8 F Pulse Rate 90 88 Respiratory Rate 16 17 Blood Pressure 134/79 139/90 Pulse Oximetry 93 99 Oxygen Delivery Room Air 09/24/23 06:10 09/24/23 08:00 09/24/23 14:00 Temperature 100.5 F H 98.3 F Pulse Rate 92 85 Respiratory Rate 18 20 Blood Pressure 138/60 146/88 H Pulse Oximetry 98 97 Oxygen Delivery Room Air Intake/Output Intake/Output: Intake & Output 09/21/23 09/22/23 09/23/23 09/24/23 23:59 23:59 23:59 23:59 Intake Total 4154 1959 1979 1719 Output Total 0 Balance 4154 1959 1979 172 Meds/Results Medications: Activ
[2023-09-24 15:05] LABS: Vancomycin Trough 14.1 ug/mL (10.0-20.0)
[2023-09-24] MEDS: VANCOMYCIN 1,750 MG/NS 500 ML 1,750 MG/500 ML BAG 250 MG IVPB (15:47)
[2023-09-24 16:19] LABS: Glucose Point of Care 157 mg/dl (65-105)
[2023-09-24] MEDS: INSULIN GLARGINE (*BKC) 100 UNITS/ML 22 UNITS SUB-Q (20:55)
[2023-09-24 21:05] VITALS: TEMP 37.9
[2023-09-24] MEDS: ACETAMINOPHEN 325 MG TABLET 650 MG PO (21:05)
[2023-09-24 21:54] VITALS: BP 143/93; PULSE 88; RESP 18; TEMP 37.9; O2SAT 98
[2023-09-24 22:05] VITALS: TEMP 37.6
[2023-09-25] VITALS (14 sets, daily range): BP systolic 118–156; BP diastolic 74–96; PULSE 73–87; RESP 13–22; TEMP 36.4–37.3; O2SAT 95–100
[2023-09-25] MEDS: CEFEPIME 2 GM/NS 50 ML 2 GM/50 ML BAG IVPB ×2 (02:52→14:37)
[2023-09-25 04:16] LABS: Basophils Absolute Auto 0.1 K/mm3 (0.0-0.1); Basophils Percent Auto 0.5 % (0.2-1.2); Eosinophils Absolute Auto 0.2 K/mm3 (0-0.3); Eosinophils Percent Auto 2.2 % (0-4.4); Hematocrit 30.1 % (42.0-52.0); Hemoglobin 9.5 g/dL (14.0-18.0); Immature Granulocyte Absolute 0.08 K/mm3 (0.00-0.031); Immature Granulocyte Percent A 0.8 % (0-0.5); Lymphocytes Absolute Auto 2.87 K/mm3 (0.9-3.2); Lymphocytes Percent Auto 29.3 % (18.3-44.2); Mean Corpuscular HGB Conc 31.6 g/dl (32-36); Mean Corpuscular Hemoglobin 26.8 pg (26-34); Mean Platelet Volume 9.1 fl (7.4-10.4); Monocytes Absolute Auto 0.8 K/mm3 (0.1-0.6); Monocytes Percent Auto 8.5 % (2.6-8.5); Neutrophils Absolute Auto 5.7 K/mm3 (1.3-6.7); Neutrophils Percent Auto 58.7 % (45.5-73.1); Platelet Count Result 450 k/mm3 (150-375); Red Blood Count 3.54 M/mm3 (4.6-6.20); Red Cell Distribution Width 13.3 % (11.5-14.5); White Blood Count 9.8 K/mm3 (4.5-10.0)
[2023-09-25 04:28] LABS: Alanine Aminotransferase 17 U/L (6-50); Albumin Level 2.8 g/dL (3.5-5.1); Alkaline Phosphatase 341 U/L (38-126); Anion Gap 2 mmol/L (8-16); Aspartate Amino Transferase 25 U/L (17-59); Bilirubin,Total 0.3 mg/dL (0.2-1.3); Blood Urea Nitrogen 6 mg/dL (9-20); Carbon Dioxide 30 mmol/L (22-30); Chloride 107 mmol/L (98-107); Estimated CRCL calculation 157 ml/min; Estimated Glomerular Filt Rate > 60; Glucose 106 mg/dL (65-110); Potassium 3.4 mmol/L (3.4-5.0); Sodium 139 mmol/L (137-145)
[2023-09-25 04:47] LABS: Glucose Point of Care 150 mg/dl (65-105)
[2023-09-25] MEDS: VANCOMYCIN 1,750 MG/NS 500 ML 1,750 MG/500 ML BAG 250 MG IVPB ×2 (04:52→15:57)
[2023-09-25] MEDS: CENTRAL LINE FLUSH 10 ML IV PUSH ×3 (05:44→22:26)
[2023-09-25] MEDS: metroNIDAZOLE 500 MG/ISO 100ML 500 MG/100 ML BAG 100 MG IVPB ×3 (05:44→22:12)
[2023-09-25 07:34] LABS: Glucose Point of Care 97 mg/dl (65-105)
[2023-09-25] MEDS: ENOXAPARIN 40 MG/0.4 ML SYRINGE SUB-Q (08:17)
--- NOTE | 2023-09-25 10:09 | WPDANESEPPF ---
Anes - Initial Pre Proc Eval Procedure: Operation Date: 09/20/23 15:00 Proposed Procedures p Incision and Drainage Left Foot Abscess - Garcia Boone MD Operation Date: 09/25/23 13:00 Proposed Procedures p Incision And Drainage Left Foot Abscess - Garcia Boone MD Date/Time: 09/25/23 10:09 Surgeon: Brandon Au MD Pre Op Diagnosis: Diabetic Foot Ulcer Patient Data Age: 28 Gender: M Height: 1.65 m Weight: 89.5 kg Last Vital Signs Temp 36.6 C 09/25/23 09:36 Pulse 77 09/25/23 09:36 Resp 16 09/25/23 09:36 BP 152/87 H 09/25/23 09:36 Pulse Ox 98 09/25/23 09:36 O2 Del Method Room Air 09/25/23 09:36 O2 Flow Rate 5 09/20/23 11:45 Allergies Allergy/AdvReac Type Severity Reaction Status Date / Time No Known Allergies Allergy Unverified 09/18/23 16:18 Home Medications Medication Instructions Recorded Confirmed Type No Home Medications 09/23/23 09/23/23 History Laboratory Tests 09/24/23 09/24/23 09/24/23 11:13 14:02 16:16 WBC RBC Hgb Hct MCV MCH MCHC RDW Plt Count MPV Immature Gran % (Auto) Neut % (Auto) Lymph % (Auto) Leon % (Auto) Eos % (Auto) Baso % (Auto) Lymph # (Auto) Leon # (Auto) Eos # (Auto) Baso # (Auto) Abs Immat Gran (auto) Absolute Neuts (auto) Absolute Nucleated RBC Nucleated RBC % Sodium Potassium Chloride Carbon Dioxide Anion Gap BUN Creatinine Estim Creat Clear Calc Estimated GFR Glucose POC Capillary Glucose 137 H mg/dl 157 H mg/dl (65-105) (65-105) Calcium Iron TIBC % Saturation Total Bilirubin AST ALT Alkaline Phosphatase Total Protein Albumin Vancomycin Trough 14.1 ug/mL (10.0-20.0) 09/24/23 09/25/23 09/25/23 20:32 04:09 07:32 WBC 9.8 K/mm3 (4.5-10.0) RBC 3.54 L M/mm3 (4.6-6.20) Hgb 9.5 L g/dL (14.0-18.0) Hct 30.1 L % (42.0-52.0) MCV 85.0 fl (80-100) MCH 26.8 pg (26-34) MCHC 31.6 L g/dl (32-36) RDW 13.3 % (11.5-14.5) Plt Count 450 H k/mm3 (150-375) MPV 9.1 fl (7.4-10.4) Immature Gran % (Auto) 0.8 H % (0-0.5) Neut % (Auto) 58.7 % (45.5-73.1) Lymph % (Auto) 29.3 % (18.3-44.2) Leon % (Auto) 8.5 % (2.6-8.5) Eos % (Auto) 2.2 % (0-4.4) Baso % (Auto) 0.5 % (0.2-1.2) Lymph # (Auto) 2.87 K/mm3 (0.9-3.2) Leon # (Auto) 0.8 H K/mm3 (0.1-0.6) Eos # (Auto) 0.2 K/mm3 (0-0.3) Baso # (Auto) 0.1 K/mm3 (0.0-0.1) Abs Immat Gran (auto) 0.08 H K/mm3 (0.00-0.031) Absolute Neuts (auto) 5.7 K/mm3 (1.3-6.7) Absolute Nucleated RBC 0.0 K/mm3 (0.0-0.012) Nucleated RBC % 0.0 % (0.0-0.2) Sodium 139 mmol/L (137-145) Potassium 3.4 mmol/L (3.4-5.0) Chloride 107 mmol/L (98-107) Carbon Dioxide 30 mmol/L (22-30) Anion Gap 2 L mmol/L (8-16) BUN 6 L mg/dL (9-20) Creatinine 0.60 L mg/dL (0.7-1.3) Estim Creat Clear Calc 157 ml/min Estimated GFR > 60 (59 - ) Glucose 106 mg/dL (65-110) POC Capillary Glucose 150 H mg/dl 97 mg/dl (65-105) (65-105) Calcium 8.0 L mg/dL (8.4-10.2) Iron TIBC % Saturation Total Bilirubin 0.3 mg/dL (0.2-1.3) AST 25 U/
--- NOTE | 2023-09-25 10:16 | WPDHPUPDATE1 ---
History and Physical Update Update Date/Time: 09/25/23 10:16 History and Physical has been reviewed, including an updated exam of the patient. There are NO changes in the patient's condition. Risks, benefits, and alternatives have been discussed and questions answered. Patient agrees to proceed with procedure.
[2023-09-25 10:27] LABS: Iron 44 ug/dL (49-181)
[2023-09-25 10:36] LABS: Percent Iron Saturation 22 % (20-50)
[2023-09-25] MEDS: BUPivacaine HCL 0.5% 10 ML AMP 30 ML INFILTRATE (10:44)
[2023-09-25] MEDS: LIDO 1%/EPINEPHRINE/PF 1:200,000 30 ML VIAL XX (10:44)
[2023-09-25] MEDS: LACTATED RINGERS 1,000 ML 30 ML IV CONT (11:05)
[2023-09-25 11:15] LABS: Glucose Point of Care 82 mg/dl (65-105)
--- NOTE | 2023-09-25 11:17 | PCNWS ---
Weekly nutritional screen. Patient is tolerating current diet with varied intake 10-100% meals. NPO for surgical debridement to foot today, diet to be resumed afterwards. No weight loss reported. No nutritional needs at this time.
--- NOTE | 2023-09-25 13:08 | W.PM.PROC2 ---
Procedure Note - Detailed Date of Procedure 09/25/23 Pre-op Diagnosis Diabetic Left foot ulcer and abscess Post-op Diagnosis Same Procedure Performed Complex repeat incision and drainage of left foot abscess Surgeon Garcia Boone MD Anesthesia MAC Indications patient is a 28-year-old uncontrolled diabetic who had hemoglobin A1c of 14 on admission. he had advanced very large left forefoot abscess with cellulitis due to diabetic foot wound. He initially was incised and drained and the wound was packed. Continues to have some purulent drainage from the wound and his white blood [place] [address] [place] [address]. He presents now for exploration wound again and a repeat incision and drainage of this complex left foot abscess. Findings The patient had abscess cavity from the initial old to the plantar surface. This involved about 0.5 cm of skin and subcutaneous tissue. He also extension of the abscess the tract along the forefoot on the plantar surface to about the midportion of the forefoot. On the dorsal forefoot he had tracking of the abscess cavity to between the 3rd and 4th toes. Purulent drainage was still coming out of these abscess cavities Description of Procedure after informed consent was obtained patient brought to the operating room was placed supine position and IV sedation was administered by anesthesia. The left foot was then prepped and draped usual sterile fashion. time-out was then performed correctly identifying the patient as well as procedure to be performed verifying the site marking. He was already on scheduled IV antibiotics. I then initially probed the abscess cavity and the connecting extensions of the abscess cavity into the dorsum of the forefoot and the plantar surface of the forefoot. there was the original opening between the dorsal portion of the wound and the plantar surface wound laterally had connecting bridge of tissue of skin and subcutaneous tissue measuring about 0.5cm. Divided this bridge of tissue to make it all 1 opening with a scalpel. With a Adelaida clamp I then placed through the tunnel dorsum of the forefoot and extended all the way to the area between the 2nd and 3rd toes. A counter incision made with a scalpel this area and then a Adelaida clamp was spread opened the counter incision. On the plantar surface of the forefoot I explored with a Adelaida clamp and it extended to about the same distance on the dorsal surface. Again a counter incision was made on the plantar surface of the foot with a scalpel and opening was enlarged with the Adelaida clamp. I then irrigated through these counter incisions and the main abscess cavity with copious sterile saline solution. I then placed quarter-inch [place] drains through counter incisions a loop configuration and tied the drains to themselves with 3-0 nylon sutures. The main abscess cavity was not deep enough to pack and so I just injected 1% lidocaine mixed with 0.5% Marcaine around the area for local anesthetic effect. The wounds were then dressed with 4x4 gauze immediately on top and then wrapped with a Kerlix gauze and 4in Dominick wrap. The patient tolerated the procedure well no complications. All sponges, needles, and instrument counts were correct at the end procedure. EBL was _20__cc. The patient was awakened and taken to recovery in stable and satisfactory condition. Implants None Estimated Blood Loss 20 Urine Output 0 Drains Yes ( quarter-inch Gucci drains x2) Packing No Pathology None sent Complications No immediate complications Condition Stable Disposition PACU [facility] Billing Surgery - Charge Forward: Surgery Billing
[2023-09-25] MEDS: PANTOPRAZOLE 40 MG TABLET PO (13:10)
[2023-09-25] MEDS: ACIDOPHILUS/BULGARICUS CHEWABLE TABLET 1 TABLET PO ×3 (13:10→20:33)
[2023-09-25 13:16] LABS: Glucose Point of Care 80 mg/dl (65-105)
--- NOTE | 2023-09-25 15:04 | P.PNIM_ITS ---
Progress Note: A&P Assessment and Plan (1) Diabetic foot ulcer: Qualifiers: Diabetes mellitus type: type 2 Diabetic foot ulcer location: midfoot Laterality: left Non-pressure ulcer stage: limited to breakdown of skin Qualified Code(s): E11.621 - Type 2 diabetes mellitus with foot ulcer; L97.421 - Non-pressure chronic ulcer of left heel and midfoot limited to breakdown of skin Code(s): E11.621 - Type 2 diabetes mellitus with foot ulcer; L97.509 - Non-pressure chronic ulcer of other part of unspecified foot with unspecified severity Status: Deleted (2) Diabetes mellitus: Qualifiers: Diabetes mellitus type: type 2 Diabetes mellitus fdc insulin use: without fdc use Diabetes mellitus complication status: with skin com plications Diabetes mellitus complication detail: with foot ulcer Qualified Code(s): E11.621 - Type 2 diabetes mellitus with foot ulcer; L97.509 - Non- pressure chronic ulcer of other part of unspecified foot with unspecified severity Code(s): E11.9 - Type 2 diabetes mellitus without complications Status: Acute (3) Cough: Code(s): R05.9 - Cough, unspecified Status: Acute Plan Diabetic foot ulcer LT * Left foot x-ray with no osseous abnormality or foreign bodies.? * Patient started on vancomycin, cefepime and Flagyl per antibiotic stewardship.? * Wound Care consulted.? * General surgery consulted.? * Blood cultures no growth to date.? * Wound culture no growth. * 2nd I&D 2/ * Postop shoe * De-escalate ABX per cultures and surgery recommendations Diabetes * Newly diagnosed * Accu-Cheks a.c. HS * sliding scale insulin * long-acting insulin will need prescriptions and glucometer * Hemoglobin A1c 14 * lipid panel pending * Diabetic diet * consult to dietitian * encourage lifestyle modifications and weight loss * Optimize Dominick inhibitors and statins. * Watch for hypoglycemia/hypoglycemic protocol ordered Cough * Patient having a cough for the past couple days.? * Flu and COVID swabs are negative.? * CXR negative? * Viky Silva p.r.n. for cough * Guaifenesin Code status: Full code per patient DVT prophylaxis: SCD's Stress ulcer prophylaxis: Protonix 40 daily PT/OT notes: Ambulatory with post-op shoe Disposition: Patient to return home when medically stable still admitted to the medical unit for LT diabetic foot ulcer and 2nd I&D. Father at [facility] and updated. -Patient's previous records reviewed on admission -ER notes reviewed in detail on admission -discussed all findings and current treatment plan with patient/Family/POA -Consultations reviewed for recommendations -Patient's disposition for safe discharge discussed with director case management Dictation performed by [employer] direct speech recognition software, therefore hide mill man variants and typographical errors may occur. Time Spent With Patient Time with patient: 25 - 35 minutes Subjective Date/time seen: 09/25/23 15:04 Interval history: Chief Complaint: foot ulcer Narrative: This is a 28-year-old male with past medical history significant for diabetes.? Patient presents to the emergency room due to left foot ulcer of 2 weeks duration with clear discharge.? Denies any fevers, rigors, chills, nausea, vomiting diarrhea, generalized malaise.? Preliminary workup was significant for CBC with a leukocyte count of 15,000.? patient has been admitted for further evaluation management and treatment. 09/19: Faustina
--- NOTE | 2023-09-25 15:04 | PM.IMPN ---
Progress Note: A&P Assessment and Plan (1) Diabetic foot ulcer: Qualifiers: Diabetes mellitus type: type 2 Diabetic foot ulcer location: midfoot Laterality: left Non-pressure ulcer stage: limited to breakdown of skin Qualified Code(s): E11.621 - Type 2 diabetes mellitus with foot ulcer; L97.421 - Non-pressure chronic ulcer of left heel and midfoot limited to breakdown of skin Code(s): E11.621 - Type 2 diabetes mellitus with foot ulcer; L97.509 - Non-pressure chronic ulcer of other part of unspecified foot with unspecified severity Status: Deleted (2) Diabetes mellitus: Qualifiers: Diabetes mellitus type: type 2 Diabetes mellitus long-term insulin use: without long-term use Diabetes mellitus complication status: with skin complications Diabetes mellitus complication detail: with foot ulcer Qualified Code(s): E11.621 - Type 2 diabetes mellitus with foot ulcer; L97.509 - Non-pressure chronic ulcer of other part of unspecified foot with unspecified severity Code(s): E11.9 - Type 2 diabetes mellitus without complications Status: Acute (3) Cough: Code(s): R05.9 - Cough, unspecified Status: Acute Plan Diabetic foot ulcer LT Left foot x-ray with no osseous abnormality or foreign bodies.? Patient started on vancomycin, cefepime and Flagyl per antibiotic stewardship.? Wound Care consulted.? General surgery consulted.? Blood cultures no growth to date.? Wound culture no growth. 2nd I&D 2/ Postop shoe De-escalate ABX per cultures and surgery recommendations Diabetes Newly diagnosed Accu-Cheks a.c. HS sliding scale insulin long-acting insulin will need prescriptions and glucometer Hemoglobin A1c 14 lipid panel pending Diabetic diet consult to dietitian encourage lifestyle modifications and weight loss Optimize Dominick inhibitors and statins. Watch for hypoglycemia/hypoglycemic protocol ordered Cough Patient having a cough for the past couple days.? Flu and COVID swabs are negative.? CXR negative? Viky Silva p.r.n. for cough Guaifenesin Code status: Full code per patient DVT prophylaxis: SCD's Stress ulcer prophylaxis: Protonix 40 daily PT/OT notes: Ambulatory with post-op shoe Disposition: Patient to return home when medically stable still admitted to the medical unit for LT diabetic foot ulcer and 2nd I&D. Father at [facility] and updated. -Patient's previous records reviewed on admission -ER notes reviewed in detail on admission -discussed all findings and current treatment plan with patient/Family/POA -Consultations reviewed for recommendations -Patient's disposition for safe discharge discussed with housing case manager Dictation performed by [employer] direct speech recognition software, therefore perforator operator variants and typographical errors may occur. Time Spent With Patient Time with patient: 25 - 35 minutes Subjective Date/time seen: 09/25/23 15:04 Interval history: Chief Complaint: foot ulcer Narrative: This is a 28-year-old male with past medical history significant for diabetes.? Patient presents to the emergency room due to left foot ulcer of 2 weeks duration with clear discharge.? Denies any fevers, rigors, chills, nausea, vomiting diarrhea, generalized malaise.? Preliminary workup was significant for CBC with a leukocyte count of 15,000.? patient has been admitted for further evaluation management and treatment. 09/19: Patient presents to the ED tonsil and left foot ulcer.? Patient states for the last 2 weeks he has had fevers on and off as well as nausea and some minimal diarrhea.? He states that he has had this ulcer on his foot for quite some time it began when his left shoe had a hole in it on the side.? He does have decreased sensation in his feet.? Discussed with him the risks of noncontrolled diabetes such as amputation and kidney disease.? He was started on insulin while here.?
[2023-09-25 16:33] LABS: Glucose Point of Care 74 mg/dl (65-105)
[2023-09-25 17:26] LABS: Glucose Point of Care 95 mg/dl (65-105)
[2023-09-25] MEDS: ONDANSETRON INJ 4 MG/2 ML VIAL IV PUSH (20:07)
[2023-09-25] MEDS: PROCHLORPERAZINE EDISYLATE 10 MG/2 ML VIAL IM (22:11)
[2023-09-25] MEDS: diphenhydrAMINE HCl INJ 50 MG/ML VIAL 25 MG IV PUSH (22:11)
[2023-09-25] MEDS: SODIUM CHLORIDE 0.9% IV 500 ML 30 ML (22:12)
[2023-09-25 22:57] LABS: Glucose Point of Care 80 mg/dl (65-105)
[2023-09-26] MEDS: CEFEPIME 2 GM/NS 50 ML 2 GM/50 ML BAG IVPB ×2 (03:15→14:36)
[2023-09-26 04:15] LABS: Hemoglobin 9.4 g/dL (14.0-18.0); Mean Corpuscular HGB Conc 31.3 g/dl (32-36); Mean Corpuscular Hemoglobin 26.7 pg (26-34); Mean Corpuscular Volume 85.2 fl (80-100); Platelet Count Result 470 k/mm3 (150-375); Red Blood Count 3.52 M/mm3 (4.6-6.20); Red Cell Distribution Width 13.4 % (11.5-14.5); White Blood Count 9.9 K/mm3 (4.5-10.0)
[2023-09-26 04:25] LABS: Alanine Aminotransferase 16 U/L (6-50); Albumin Level 2.8 g/dL (3.5-5.1); Alkaline Phosphatase 311 U/L (38-126); Anion Gap 2 mmol/L (8-16); Aspartate Amino Transferase 27 U/L (17-59); Bilirubin,Total 0.4 mg/dL (0.2-1.3); Blood Urea Nitrogen 6 mg/dL (9-20); Carbon Dioxide 29 mmol/L (22-30); Chloride 108 mmol/L (98-107); Estimated CRCL calculation 137 ml/min; Estimated Glomerular Filt Rate > 60; Glucose 91 mg/dL (65-110); Potassium 3.4 mmol/L (3.4-5.0); Sodium 139 mmol/L (137-145)
[2023-09-26 04:29] LABS: Vancomycin Trough 12.6 ug/mL (10.0-20.0)
[2023-09-26 05:05] VITALS: BP 136/93; PULSE 88; RESP 18; TEMP 37.2; O2SAT 95
[2023-09-26] MEDS: metroNIDAZOLE 500 MG/ISO 100ML 500 MG/100 ML BAG 100 MG IVPB ×3 (05:09→21:15)
[2023-09-26] MEDS: CENTRAL LINE FLUSH 10 ML IV PUSH ×3 (05:10→21:19)
[2023-09-26] MEDS: VANCOMYCIN 1,500 MG/NS 500 ML 1,500 MG/500 ML BAG 250 MG IVPB ×2 (06:03→14:36)
[2023-09-26 07:41] LABS: Glucose Point of Care 82 mg/dl (65-105)
[2023-09-26] MEDS: ACIDOPHILUS/BULGARICUS CHEWABLE TABLET 1 TABLET PO ×4 (09:17→20:19)
[2023-09-26] MEDS: ENOXAPARIN 40 MG/0.4 ML SYRINGE SUB-Q (09:17)
[2023-09-26] MEDS: PANTOPRAZOLE 40 MG TABLET PO (09:17)
--- NOTE | 2023-09-26 11:00 | P.PNIM_ITS ---
Progress Note: A&P Assessment and Plan (1) Diabetic foot ulcer: Qualifiers: Diabetes mellitus type: type 2 Diabetic foot ulcer location: midfoot Laterality: left Non-pressure ulcer stage: limited to breakdown of skin Qualified Code(s): E11.621 - Type 2 diabetes mellitus with foot ulcer; L97.421 - Non-pressure chronic ulcer of left heel and midfoot limited to breakdown of skin Code(s): E11.621 - Type 2 diabetes mellitus with foot ulcer; L97.509 - Non-pressure chronic ulcer of other part of unspecified foot with unspecified severity Status: Deleted (2) Diabetes mellitus: Qualifiers: Diabetes mellitus type: type 2 Diabetes mellitus nursing home insulin use: without nursing home use Diabetes mellitus complication status: with skin com plications Diabetes mellitus complication detail: with foot ulcer Qualified Code(s): E11.621 - Type 2 diabetes mellitus with foot ulcer; L97.509 - Non- pressure chronic ulcer of other part of unspecified foot with unspecified severity Code(s): E11.9 - Type 2 diabetes mellitus without complications Status: Acute (3) Cough: Code(s): R05.9 - Cough, unspecified Status: Acute Plan Diabetic foot ulcer LT * Left foot x-ray with no osseous abnormality or foreign bodies.? * Patient started on vancomycin, cefepime and Flagyl per antibiotic stewardship.? * Wound Care consulted.? * General surgery consulted.? * Blood cultures no growth to date.? * Wound culture no growth. * 2nd I&D 2/ * Postop shoe * De-escalate ABX per cultures and surgery recommendations Diabetes * Newly diagnosed * Accu-Cheks a.c. HS * sliding scale insulin * long-acting insulin will need prescriptions and glucometer * Hemoglobin A1c 14 * lipid panel pending * Diabetic diet * consult to dietitian * encourage lifestyle modifications and weight loss * Optimize Dominick inhibitors and statins. * Watch for hypoglycemia/hypoglycemic protocol ordered Cough * Patient having a cough for the past couple days.? * Flu and COVID swabs are negative.? * CXR negative? * Tessalon Edeles p.r.n. for cough * Guaifenesin Depression * Recommended O/P therapy * outside resources given * SI scale Code status: Full code per patient DVT prophylaxis: SCD's Stress ulcer prophylaxis: Protonix 40 daily PT/OT notes: Ambulatory with post-op shoe Disposition: Patient to return home when medically stable still admitted to the medical unit for LT diabetic foot ulcer and 2nd I&D. Father at [facility] and updated. Working with CC and natural resources extension educator to get need resources, medication, and equipment for his diabetes. -Patient's previous records reviewed on admission -ER notes reviewed in detail on admission -discussed all findings and current treatment plan with patient/Family/POA -Consultations reviewed for recommendations -Patient's disposition for safe discharge discussed with community case manager Dictation performed by [employer] direct speech recognition software, therefore pharmacometrician variants and typographical errors may occur. Time Spent With Patient Time with patient: 25 - 35 minutes Subjective Date/time seen: 09/26/23 11:00 Interval history: Chief Complaint: foot ulcer Narrative: This is a 28-year-old male with past medical history significant for diabetes.? Patient presents to the emergency room due to left foot ulcer of 2 weeks duration with clear discharge.? Denies any fevers, rigors, chills, nausea,
--- NOTE | 2023-09-26 11:00 | PM.IMPN ---
Progress Note: A&P Assessment and Plan (1) Diabetic foot ulcer: Qualifiers: Diabetes mellitus type: type 2 Diabetic foot ulcer location: midfoot Laterality: left Non-pressure ulcer stage: limited to breakdown of skin Qualified Code(s): E11.621 - Type 2 diabetes mellitus with foot ulcer; L97.421 - Non-pressure chronic ulcer of left heel and midfoot limited to breakdown of skin Code(s): E11.621 - Type 2 diabetes mellitus with foot ulcer; L97.509 - Non-pressure chronic ulcer of other part of unspecified foot with unspecified severity Status: Deleted (2) Diabetes mellitus: Qualifiers: Diabetes mellitus type: type 2 Diabetes mellitus senior care insulin use: without senior care use Diabetes mellitus complication status: with skin complications Diabetes mellitus complication detail: with foot ulcer Qualified Code(s): E11.621 - Type 2 diabetes mellitus with foot ulcer; L97.509 - Non-pressure chronic ulcer of other part of unspecified foot with unspecified severity Code(s): E11.9 - Type 2 diabetes mellitus without complications Status: Acute (3) Cough: Code(s): R05.9 - Cough, unspecified Status: Acute Plan Diabetic foot ulcer LT Left foot x-ray with no osseous abnormality or foreign bodies.? Patient started on vancomycin, cefepime and Flagyl per antibiotic stewardship.? Wound Care consulted.? General surgery consulted.? Blood cultures no growth to date.? Wound culture no growth. 2nd I&D 2/7 Postop shoe De-escalate ABX per cultures and surgery recommendations Diabetes Newly diagnosed Accu-Cheks a.c. HS sliding scale insulin long-acting insulin will need prescriptions and glucometer Hemoglobin A1c 14 lipid panel pending Diabetic diet consult to dietitian encourage lifestyle modifications and weight loss Optimize Dominick inhibitors and statins. Watch for hypoglycemia/hypoglycemic protocol ordered Cough Patient having a cough for the past couple days.? Flu and COVID swabs are negative.? CXR negative? Tessalon Perles p.r.n. for cough Guaifenesin Depression Recommended O/P therapy outside resources given SI scale Code status: Full code per patient DVT prophylaxis: SCD's Stress ulcer prophylaxis: Protonix 40 daily PT/OT notes: Ambulatory with post-op shoe Disposition: Patient to return home when medically stable still admitted to the medical unit for LT diabetic foot ulcer and 2nd I&D. Father at beside and updated. Working with CC and childbirth educator to get need resources, medication, and equipment for his diabetes. -Patient's previous records reviewed on admission -ER notes reviewed in detail on admission -discussed all findings and current treatment plan with patient/Family/POA -Consultations reviewed for recommendations -Patient's disposition for safe discharge discussed with case coordinator Dictation performed by [employer] direct speech recognition software, therefore candy wrapping machine operator variants and typographical errors may occur. Time Spent With Patient Time with patient: 25 - 35 minutes Subjective Date/time seen: 09/26/23 11:00 Interval history: Chief Complaint: foot ulcer Narrative: This is a 28-year-old male with past medical history significant for diabetes.? Patient presents to the emergency room due to left foot ulcer of 2 weeks duration with clear discharge.? Denies any fevers, rigors, chills, nausea, vomiting diarrhea, generalized malaise.? Preliminary workup was significant for CBC with a leukocyte count of 15,000.? patient has been admitted for further evaluation management and treatment. 09/19: Patient presents to the ED tonsil and left foot ulcer.? Patient states for the last 2 weeks he has had fevers on and off as well as nausea and some minimal diarrhea.? He states that he has had this ulcer on his foot for quite some time it began when his left shoe had a hole in it on
[2023-09-26 11:09] LABS: Glucose Point of Care 146 mg/dl (65-105)
[2023-09-26 14:00] VITALS: BP 151/90; PULSE 74; RESP 18; TEMP 36.5; O2SAT 99
--- NOTE | 2023-09-26 14:06 | WPDANESPN ---
Anes - Prog Note Post-Op Date/Time: 09/26/23 14:06 Cardiovascular status: normal Respiratory status: normal Airway patency: baseline Mental status: baseline Post-Op hydration status: normal Vital Signs: Last Vital Signs Temp 98.9 F 09/26/23 05:05 Pulse 88 09/26/23 05:05 Resp 18 09/26/23 05:05 BP 136/93 H 09/26/23 05:05 Pulse Ox 95 09/26/23 05:05 O2 Del Method Room Air 09/25/23 20:00 O2 Flow Rate 2 09/25/23 12:05 Pain Score (VAS): 2 I/O: Intake & Output 09/25/23 09/26/23 09/26/23 23:59 07:59 15:59 Intake Total 750 800 477 Output Total 1 Balance 749 800 477 Laboratory Tests 09/26/23 04:08 09/26/23 04:08 09/25/23 09/25/23 09/25/23 16:29 17:22 20:28 WBC RBC Hgb Hct MCV MCH MCHC RDW Plt Count MPV Sodium Potassium Chloride Carbon Dioxide Anion Gap BUN Creatinine Estim Creat Clear Calc Estimated GFR Glucose POC Capillary Glucose 74 95 80 Calcium Total Bilirubin AST ALT Alkaline Phosphatase Total Protein Albumin Vancomycin Trough 09/26/23 09/26/23 09/26/23 04:08 07:33 11:05 WBC 9.9 RBC 3.52 L Hgb 9.4 L Hct 30.0 L MCV 85.2 MCH 26.7 MCHC 31.3 L RDW 13.4 Plt Count 470 H MPV 9.0 Sodium 139 Potassium 3.4 Chloride 108 H Carbon Dioxide 29 Anion Gap 2 L BUN 6 L Creatinine 0.70 Estim Creat Clear Calc 137 Estimated GFR > 60 Glucose 91 POC Capillary Glucose 82 146 H Calcium 8.0 L Total Bilirubin 0.4 AST 27 ALT 16 Alkaline Phosphatase 311 H Total Protein 6.0 L Albumin 2.8 L Vancomycin Trough 12.6 Patient Feedback: Patient satisfied with anesthetic care.
[2023-09-26 16:28] LABS: Glucose Point of Care 161 mg/dl (65-105)
--- NOTE | 2023-09-26 16:57 | PM.PNGS ---
Progress Note: A&P Assessment and Plan (1) Diabetic foot ulcer: Qualifiers: Diabetes mellitus type: type 2 Diabetic foot ulcer location: midfoot Laterality: left Non-pressure ulcer stage: limited to breakdown of skin Qualified Code(s): E11.621 - Type 2 diabetes mellitus with foot ulcer; L97.421 - Non-pressure chronic ulcer of left heel and midfoot limited to breakdown of skin Code(s): E11.621 - Type 2 diabetes mellitus with foot ulcer; L97.509 - Non-pressure chronic ulcer of other part of unspecified foot with unspecified severity Status: Acute Assessment and Plan: Postop day 1 after complex repeat incision and drainage of left foot abscess with Gucci drains x 2 placed. White blood cell count normalized. Continue IV antibiotics. Will consult PT/OT to educate patient on appropriate transfer. Continue postop shoe with ambulation. Hopefully he can discharge on oral antibiotics in the next few days if he continues to improve. Plan I have discussed the patient's case and plan of care with Dr. Boone. Subjective Subjective Date/Time Seen: 09/26/23 16:57 Patient reports: no new complaints and afebrile Interval history: Patient doing well today. No new complaints. The patient was moved from his room in 319 due to suicidal ideation yesterday. He denies any suicidal ideation today. Exam Narrative: Left foot dressing removed, [address] with scant purulent drainage coming from openings, overall edema and redness improved, some bruising noted on dorsal and plantar foot Objective Data Vital Signs Vital Signs: Vital Signs - 24 hr 09/25/23 20:23 09/25/23 20:00 09/26/23 05:05 Temperature 99.1 F 98.9 F Pulse Rate 84 88 Respiratory Rate 16 18 Blood Pressure 154/93 H 136/93 H Pulse Oximetry 99 95 Oxygen Delivery Room Air 09/26/23 14:00 Temperature 97.7 F Pulse Rate 74 Respiratory Rate 18 Blood Pressure 151/90 H Pulse Oximetry 99 Oxygen Delivery Intake/Output Intake/Output: Intake & Output 09/23/23 09/24/23 09/25/23 09/26/23 23:59 23:59 23:59 23:59 Intake Total 1979 3209 2149 2098 Output Total 0 1 Balance 1979 3209 2148 2098 Meds/Results Medications: Active Medications Generic Name Dose Route Start Last Admin Trade Name Freq PRN Reason Stop Dose Admin Acetaminophen 650 mg 09/20/23 15:53 09/24/23 21:05 Acetaminophen 325 Mg Tablet PO 650 mg Q6H PRN Administration Mild Pain (1-3) or Fever Hydrocodone Bitart/Acetaminophen 1 tab 09/20/23 15:53 09/24/23 03:26 Hydrocodone/Acetaminophen (*Crx) 5-325 Mg Tablet PO 1 tab Q6H PRN Administration Pain Rated 4-6 Benzocaine 1 lozenge 09/22/23 21:56 09/22/23 23:48 Benzocaine/Menthol (*Bkc) 18 Ea Lozenge PO 1 lozenge PRN PRN Administration Sore Throat Dextrose 12.5 gm 09/19/23 00:12 Dextrose 50% 25 Gm/50 Ml Syringe IV PUSH PRN PRN Hypoglycemia Protocol Enoxaparin Sodium 40 mg 09/23/23 09:00 09/26/23 09:17 Enoxaparin 40 Mg/0.4 Ml Syringe SUB-Q 40 mg DAILY ROBBY Administration Glucagon 1 mg 09/19/23 00:12 Glucagon For Inj 1 Mg Vial IM PRN PRN Hypoglycemia Protocol Glucose 15 gm 09/19/23 00:12 Glucose Oral Gel 15 Gm Of Glucse In 37.5 Gm Tube PO PRN PRN Hypoglycemia Protocol Guaifenesin/Dextromethorphan 5 ml 09/22/23 21:59 09/22/23 22:24 Guaifenesin/Dextromethorphan 10 Ml Udc PO 5 ml Q4H PRN Administration Cough Metronidazole 500 mg in 100 mls @ 100 mls/hr 09/19/23 06:00 09/26/23 13:14 Flagyl 500 Mg/Iso Soln 100 Ml IVPB 100 mls/hr Q8H ROBBY Administration Dextrose 1,000 mls @ 100 mls/hr 09/19/23 00:12 Dextrose 5% 1,000 Ml IVPB PRN PRN Hypoglycemia Protocol Cefepime HCl 2 gm in 50 mls @ 100 mls/hr 09/23/23 15:00 09/26/23 15:06 Maxipime 2 Gm/Ns 50 Ml IVPB Infused Q12H ROBBY Infusion Vancomycin HCl 1,500 mg in 500 mls @ 250 mls/hr
[2023-09-26 20:00] VITALS: O2SAT 99
[2023-09-26 20:47] VITALS: BP 131/69; PULSE 84; RESP 20; TEMP 36.5; O2SAT 100
[2023-09-26] MEDS: INSULIN GLARGINE (*BKC) 100 UNITS/ML 22 UNITS SUB-Q (21:21)
[2023-09-26 21:23] LABS: Glucose Point of Care 191 mg/dl (65-105)
[2023-09-27] MEDS: VANCOMYCIN 1,500 MG/NS 500 ML 1,500 MG/500 ML BAG 250 MG IVPB (00:13)
[2023-09-27] MEDS: CEFEPIME 2 GM/NS 50 ML 2 GM/50 ML BAG IVPB (02:20)
[2023-09-27] MEDS: ONDANSETRON INJ 4 MG/2 ML VIAL IV PUSH (04:09)
[2023-09-27 04:25] VITALS: BP 140/80; PULSE 79; RESP 18; TEMP 37; O2SAT 96
--- NOTE | 2023-09-27 04:56 | PC.NURSE ---
unable to draw from PICC line informed lab assistance.
[2023-09-27] MEDS: metroNIDAZOLE 500 MG/ISO 100ML 500 MG/100 ML BAG 100 MG IVPB (05:03)
[2023-09-27] MEDS: CENTRAL LINE FLUSH 10 ML IV PUSH (05:04)
--- NOTE | 2023-09-27 05:20 | PC.NURSE ---
awaiting vancomycin trough results
[2023-09-27 05:37] LABS: Hematocrit 31.4 % (42.0-52.0); Hemoglobin 9.9 g/dL (14.0-18.0); Mean Corpuscular HGB Conc 31.5 g/dl (32-36); Mean Corpuscular Hemoglobin 26.5 pg (26-34); Mean Corpuscular Volume 84.2 fl (80-100); Mean Platelet Volume 8.7 fl (7.4-10.4); Platelet Count Result 535 k/mm3 (150-375); Red Blood Count 3.73 M/mm3 (4.6-6.20); Red Cell Distribution Width 13.3 % (11.5-14.5); White Blood Count 9.7 K/mm3 (4.5-10.0)
[2023-09-27 05:47] LABS: Alanine Aminotransferase 14 U/L (6-50); Albumin Level 2.7 g/dL (3.5-5.1); Alkaline Phosphatase 276 U/L (38-126); Anion Gap 1 mmol/L (8-16); Aspartate Amino Transferase 25 U/L (17-59); Bilirubin,Total 0.3 mg/dL (0.2-1.3); Blood Urea Nitrogen 6 mg/dL (9-20); Carbon Dioxide 31 mmol/L (22-30); Chloride 108 mmol/L (98-107); Estimated CRCL calculation 157 ml/min; Estimated Glomerular Filt Rate > 60; Glucose 86 mg/dL (65-110); Potassium 3.3 mmol/L (3.4-5.0); Sodium 140 mmol/L (137-145)
[2023-09-27 05:53] LABS: Vancomycin Trough 22.1 ug/mL (10.0-20.0)
--- NOTE | 2023-09-27 06:38 | PC.NURSE ---
vancomycin trough high 22.1, informed pharmacist Chuy, awaiting pharmacy to dose.
[2023-09-27 07:43] LABS: Glucose Point of Care 88 mg/dl (65-105)
[2023-09-27] MEDS: PANTOPRAZOLE 40 MG TABLET PO (09:33)
[2023-09-27] MEDS: ACIDOPHILUS/BULGARICUS CHEWABLE TABLET 1 TABLET PO ×2 (09:33→12:25)
[2023-09-27] MEDS: ENOXAPARIN 40 MG/0.4 ML SYRINGE SUB-Q (09:33)
[2023-09-27 11:28] LABS: Glucose Point of Care 107 mg/dl (65-105)
[2023-09-27] MEDS: VANCOMYCIN 1,750 MG/NS 500 ML 1,750 MG/500 ML BAG 125 MG IVPB (12:25)
--- NOTE | 2023-09-27 12:57 | P.PNIM_ITS ---
Progress Note: A&P Assessment and Plan (1) Diabetic foot ulcer: Qualifiers: Diabetes mellitus type: type 2 Diabetic foot ulcer location: midfoot Laterality: left Non-pressure ulcer stage: limited to breakdown of skin Qualified Code(s): E11.621 - Type 2 diabetes mellitus with foot ulcer; L97.421 - Non-pressure chronic ulcer of left heel and midfoot limited to breakdown of skin Code(s): E11.621 - Type 2 diabetes mellitus with foot ulcer; L97.509 - Non-pressure chronic ulcer of other part of unspecified foot with unspecified severity Status: Deleted (2) Diabetes mellitus: Qualifiers: Diabetes mellitus type: type 2 Diabetes mellitus jail insulin use: without jail use Diabetes mellitus complication status: with skin com plications Diabetes mellitus complication detail: with foot ulcer Qualified Code(s): E11.621 - Type 2 diabetes mellitus with foot ulcer; L97.509 - Non- pressure chronic ulcer of other part of unspecified foot with unspecified severity Code(s): E11.9 - Type 2 diabetes mellitus without complications Status: Acute (3) Cough: Code(s): R05.9 - Cough, unspecified Status: Acute Plan Diabetic foot ulcer LT * Left foot x-ray with no osseous abnormality or foreign bodies.? * Patient started on vancomycin, cefepime and Flagyl per antibiotic stewardship.? * Wound Care consulted.? * General surgery consulted.? * Blood cultures no growth to date.? * Wound culture no growth. * 2nd I&D 2/ * Postop shoe * De-escalate ABX doxycycline and amoxicillin p.o. when cleared by surgery Diabetes * Newly diagnosed * Accu-Cheks a.c. HS * sliding scale insulin * long-acting insulin will need prescriptions and glucometer * Hemoglobin A1c 14 * lipid panel pending * Diabetic diet * consult to dietitian * encourage lifestyle modifications and weight loss * Optimize Dominick inhibitors and statins. * Watch for hypoglycemia/hypoglycemic protocol ordered Cough-Improving * Patient having a cough for the past couple days.? * Flu and COVID swabs are negative.? * CXR negative? * Tessalon Perles p.r.n. for cough * Guaifenesin Depression * Recommended O/P therapy * outside resources given * SI scale Code status: Full code per patient DVT prophylaxis: SCD's Stress ulcer prophylaxis: Protonix 40 daily PT/OT notes: Ambulatory with post-op shoe Disposition: Patient to return home when medically stable still admitted to the medical unit for LT diabetic foot ulcer and 2nd I&D. Father at beside and updated. Working with CC and para educator to get need resources, medication, and equipment for his diabetes. -Patient's previous records reviewed on admission -ER notes reviewed in detail on admission -discussed all findings and current treatment plan with patient/Family/POA -Consultations reviewed for recommendations -Patient's disposition for safe discharge discussed with upper caser Dictation performed by [employer] direct speech recognition software, therefore louver mortiser operator variants and typographical errors may occur. Time Spent With Patient Time with patient: 15 - 25 minutes Subjective Date/time seen: 09/27/23 12:57 Interval history: Chief Complaint: foot ulcer Narrative: This is a 28-year-old male with past medical history significant for diabetes.? Patient presents to the emergency room due to left foot ulcer of 2 weeks duration with clear discharge.? Denies any fevers, r
--- NOTE | 2023-09-27 12:57 | PM.IMPN ---
Progress Note: A&P Assessment and Plan (1) Diabetic foot ulcer: Qualifiers: Diabetes mellitus type: type 2 Diabetic foot ulcer location: midfoot Laterality: left Non-pressure ulcer stage: limited to breakdown of skin Qualified Code(s): E11.621 - Type 2 diabetes mellitus with foot ulcer; L97.421 - Non-pressure chronic ulcer of left heel and midfoot limited to breakdown of skin Code(s): E11.621 - Type 2 diabetes mellitus with foot ulcer; L97.509 - Non-pressure chronic ulcer of other part of unspecified foot with unspecified severity Status: Deleted (2) Diabetes mellitus: Qualifiers: Diabetes mellitus type: type 2 Diabetes mellitus [facility] insulin use: without [facility] use Diabetes mellitus complication status: with skin complications Diabetes mellitus complication detail: with foot ulcer Qualified Code(s): E11.621 - Type 2 diabetes mellitus with foot ulcer; L97.509 - Non-pressure chronic ulcer of other part of unspecified foot with unspecified severity Code(s): E11.9 - Type 2 diabetes mellitus without complications Status: Acute (3) Cough: Code(s): R05.9 - Cough, unspecified Status: Acute Plan Diabetic foot ulcer LT Left foot x-ray with no osseous abnormality or foreign bodies.? Patient started on vancomycin, cefepime and Flagyl per antibiotic stewardship.? Wound Care consulted.? General surgery consulted.? Blood cultures no growth to date.? Wound culture no growth. 2nd I&D 2/ Postop shoe De-escalate ABX doxycycline and amoxicillin p.o. when cleared by surgery Diabetes Newly diagnosed Accu-Cheks a.c. HS sliding scale insulin long-acting insulin will need prescriptions and glucometer Hemoglobin A1c 14 lipid panel pending Diabetic diet consult to dietitian encourage lifestyle modifications and weight loss Optimize Dominick inhibitors and statins. Watch for hypoglycemia/hypoglycemic protocol ordered Cough-Improving Patient having a cough for the past couple days.? Flu and COVID swabs are negative.? CXR negative? Viky Silva p.r.n. for cough Guaifenesin Depression Recommended O/P therapy outside resources given SI scale Code status: Full code per patient DVT prophylaxis: SCD's Stress ulcer prophylaxis: Protonix 40 daily PT/OT notes: Ambulatory with post-op shoe Disposition: Patient to return home when medically stable still admitted to the medical unit for LT diabetic foot ulcer and 2nd I&D. Father at beside and updated. Working with CC and informatics educator to get need resources, medication, and equipment for his diabetes. -Patient's previous records reviewed on admission -ER notes reviewed in detail on admission -discussed all findings and current treatment plan with patient/Family/POA -Consultations reviewed for recommendations -Patient's disposition for safe discharge discussed with salesperson flowers Dictation performed by [employer] direct speech recognition software, therefore manager facility variants and typographical errors may occur. Time Spent With Patient Time with patient: 15 - 25 minutes Subjective Date/time seen: 09/27/23 12:57 Interval history: Chief Complaint: foot ulcer Narrative: This is a 28-year-old male with past medical history significant for diabetes.? Patient presents to the emergency room due to left foot ulcer of 2 weeks duration with clear discharge.? Denies any fevers, rigors, chills, nausea, vomiting diarrhea, generalized malaise.? Preliminary workup was significant for CBC with a leukocyte count of 15,000.? patient has been admitted for further evaluation management and treatment. 09/19: Patient presents to the ED tonsil and left foot ulcer.? Patient states for the last 2 weeks he has had fevers on and off as well as nausea and some minimal diarrhea.? He states that he has had this ulcer on his foot for quite some time it began when his left
--- NOTE | 2023-09-27 13:59 | PM.DS ---
DS: Admitting Diagnosis Discharge Date 09/27/2023 Admitting Diagnosis Left foot ulcer DS: Discharge Diagnosis Discharge Diagnosis (1) Diabetic foot ulcer: Qualifiers: Diabetes mellitus type: type 2 Diabetic foot ulcer location: midfoot Laterality: left Non-pressure ulcer stage: limited to breakdown of skin Qualified Code(s): E11.621 - Type 2 diabetes mellitus with foot ulcer; L97.421 - Non-pressure chronic ulcer of left heel and midfoot limited to breakdown of skin Code(s): E11.621 - Type 2 diabetes mellitus with foot ulcer; L97.509 - Non-pressure chronic ulcer of other part of unspecified foot with unspecified severity Status: Deleted (2) Diabetes mellitus: Qualifiers: Diabetes mellitus complication detail: with foot ulcer Diabetes mellitus complication status: with skin complications Diabetes mellitus correction insulin use: without superintendent container terminal use Diabetes mellitus type: type 2 Qualified Code(s): E11.621 - Type 2 diabetes mellitus with foot ulcer; L97.509 - Non-pressure chronic ulcer of other part of unspecified foot with unspecified severity Code(s): E11.9 - Type 2 diabetes mellitus without complications Status: Acute (3) Cough: Code(s): R05.9 - Cough, unspecified Status: Acute Plan Diabetic foot ulcer LT doxycycline and amoxicillin times 10 days p.o. complete therapy as indicated Postop shoe with all ambulation may shower remove dressing follow-up with general surgery and Wound Care Diabetes -educated patient on the need for blood sugar control for wound healing -Hemoglobin A1c goal less than 7 pending -Accuchecks BID -Renal function liver panel every 3 months. . -Optimize Dominick inhibitors and statins. -Watch for hypoglycemia/hypoglycemic -BMI goals less than 25. -Yearly eye exam and foot exam. -Exercise, diet low-salt low carb. Weight loss. -Primary care physician binder chainstitch as an outpatient. - patient provided prescriptions for insulin and glucometer provided by perioperative educator Depression Recommended O/P therapy outside resources given DS: Summary Hospital Course Reason for hospitalization: Diabetic LT foot Ulcer/Hyperglycemia secondary to uncontrolled Type II diabetes Hospital Course: Chief Complaint: foot ulcer Narrative: This is a 28-year-old male with past medical history significant for diabetes.? Patient presents to the emergency room due to left foot ulcer of 2 weeks duration with clear discharge.? Denies any fevers, rigors, chills, nausea, vomiting diarrhea, generalized malaise.? Preliminary workup was significant for CBC with a leukocyte count of 15,000.? patient has been admitted for further evaluation management and treatment. 2:? Patient presents to the ED tonsil and left foot ulcer.? Patient states for the last 2 weeks he has had fevers on and off as well as nausea and some minimal diarrhea.? He states that he has had this ulcer on his foot for quite some time it began when his left shoe had a hole in it on the side.? He does have decreased sensation in his feet.? Discussed with him the risks of noncontrolled diabetes such as amputation and kidney disease.? He was started on insulin while here.? General surgery consulted per wound care recommendation. 22:? I saw patient postoperatively.? He is doing well as far as pain goes.? He is experiencing some nausea and low-grade fevers.? Order patient some Tylenol and Zofran for the symptoms.? He is having a dry nonproductive cough as well so will order a COVID and flu swab on him.? Continue antibiotics at this time. ? 23:? ?patient was running fevers after his surgery yesterday but today has been afebrile.? He states that he is feeling much better and denies any nausea at this time.? Much more comfortable than yesterday.? Continue IV antibiotics.? He denies any pain at this time. 24:? Patient doing well today.? He denies any nausea, vomit
[2023-09-27 14:00] VITALS: BP 163/93; PULSE 76; RESP 18; TEMP 36.2; O2SAT 100
[2023-09-27 16:30] LABS: Glucose Point of Care 125 mg/dl (65-105)
--- NOTE | 2023-09-27 19:10 | PC.NURSE ---
Pt discharged home by private vehicle. Pt was educated on wound care instructions. Education was reinforced when family arrived to take pt home. Pt was compliant with care. Pt received IV vancomycin before discharge. Pt denies any pain. Pt was educated on disease process of diabetes. Pt was given printed prescriptions and was educated on how to obtain them using [employer] and [employer]. Pt participated and contributed in plan of care. Pt belongings were sent with pt. Pt was monitored for any changes in status. Pt PICC line removed, tip intact and pt tolerated well. PICC was at 46.
--- NOTE | 2023-10-01 11:10 | PCCDE ---
This pt was discharged on Wednesday 09/27. I received a call from him yesterday stating he was not able to continuous pickling line pickler his prescriptions from the pharmacy due to cost being over $300. He had several prescriptions but pt was still at the pharmacy and I was able to identify that the Basaglar insulin alone was over $300. I gave pt the toll free number for [employer] [facility] to get a $35 copay card. Pt called again this am. He was not able to navigate the number. I then instructed him to go to [employer] to get the card but he was still not able to navigate this. I invited him to come to my office so that I could help and he agreed. Pt arrived with his mother and father. Setswana is second language. Assisted pt to call the [email or web address] and they offered to email copay card but could take up to 24 hours. I assisted pt to go to website and printed the card for him. Pt has not picked up a BG meter either and therefore has not tested his BG. I provided a ONE TOUCH VERIO FLEX BG meter and 50 test strips. Explained this meter will be covered if and when he gets Medicaid. If he runs out of One touch strips before Medicaid is active, then it would be more affordable to purchase a Reli-On meter from [employer]. Assisted pt to set up ONE TOUCH REVEAL fiona to track BG and we paired it with his meter. Pt tested BG in office at noon (last meal 0800) and his BG was 301mg/dl. Reviewed BG goals and importance of BG for healing. Instructed pt to test BG 2-3x/day and drink water. Pt would normally have eggs, sausage, beans and 3-4 tortillas per meal. Advised to cut back to 2-3 tortillas/meal. Encouraged balanced meals, plenty of water and no sugar added drinks or foods. I printed out his discharge med list and showed him which 2 meds were antibiotics and he MUST get those. Instructed him not to get the accuchek lancets b/c they don't go with his meter. Pt has 10 one touch lancets with the meter and instructed pt a box of 100 ONE TOUCH lancets is around $10-15. Pt sts he hasn't needed pain med so instructed he does not have to fill that rx if he doesn't need it. Provided pt with box of 50 Cristal pen needles so he doesn't need to fill that rx today either. Asked pt if he has a f/up appt and he said yes for my foot. Explained that is the surgeon and he needs to establish with a PCP. Provided pt with the address and phone number for the [facility] and instructed to make appt NANCY. Encouraged pt to call DM Specialist today or tomorrow to let me know progress and prn for questions.
== END 2023-09-27 18:35 | disposition home or self-care (01) | DRG 364 ==
LOC: ANHED 19:28 → ANH3MEDSUR 21:20
PROVIDERS: Internal Medicine Critical Care Medicine; Nurse Practitioner Family; Physician Assistant; Surgery; Admitting Provider Internal Medicine; Emergency Provider Emergency Medicine; Visit Provider Nurse Practitioner Family
PROC: 0J9R0ZZ Drainage of Left Foot Subcutaneous Tissue and Fascia, Open Approach (ICD-10-PCS; principal; 2023-09-20 15:00)
DX: E11.621 Type 2 diabetes mellitus with foot ulcer (principal); L97.421 Non-pressure chronic ulcer of left heel and midfoot limited to breakdown of skin; L02.612 Cutaneous abscess of left foot; E11.65 Type 2 diabetes mellitus with hyperglycemia; E11.40 Type 2 diabetes mellitus with diabetic neuropathy, unspecified; R05.9 Cough, unspecified; Z91.148 Patient's other noncompliance with medication regimen for other reason; Z20.822 Contact with and (suspected) exposure to COVID-19
CPT/HCPCS: 36415; 36569; 71045; 71046; 73630; 80048; 80053; 80061; 80202; 82565; 82948; 83036; 83540; 83550; 83605; 85025; 85027; 85610; 85730; 86140; 87040; 87070; 87205; 87637; 97161; 99285; A9270; J0692; J0780; J1200; J1650; J1815; J1836; J2250; J2270; J2405; J2704; J3010; J3370; J7030; J7040; J7120

== ENCOUNTER 2023-11-08 00:48 | Day surgery (SDC) | payer OTHER, SELFPAY ==
[2023-11-07 16:24] VITALS: BMI 31.6
--- NOTE | 2023-11-07 16:35 | SUR.PREOP ---
Report to the Outpatient Waiting Room, entrance under the green pavilion located off [facility], at time 1300 on date 11/08/2023. Planned Procedure Time: 1500. Time changes happen often and if your time is changed the preop area will call you the afternoon before. - You and your visitor will be asked to self-screen and do not enter if you have any COVID symptoms. - A mask is optional within the hospital at this time. Patients may have clear liquids (water, carbonated beverages, clear teas, apple juice) until 3 hours prior to surgery with a maximum of 20 ounces. - No food from midnight until time of surgery - Infants may have breast milk until 4 hours before surgery, infant formula 6 hours prior to surgery. - Children will be allowed to drink immediately following surgery. If applicable, please bring a bottle or sippy cup to assist with drinking. Juice, water, soda, and popsicles are readily available. For infants on formula, please bring formula the day of surgery. Pacifiers are allowed. Take the following medications with a SIP of water the morning of surgery: N/A DO NOT STOP ANY OF YOUR OTHER PRESCRIPTION MEDICATIONS PRIOR TO SURGERY ?EXCEPT THE FOLLOWING Medications to discontinue per physician N/A Date to take last dose N/A Please no make-up, nail liberian, hairspray, perfume, deodorant, or body powder the day of surgery. No jewelry (including any body piercings) or valuables the day of surgery, leave them at home. Please take a shower or bath the night before, or the morning of, surgery with an antibacterial soap. Wear comfortable, loose fitting clothing. Children are encouraged to wear pajamas. - Jewelry must be removed prior to entering the operating room. Rings and piercings that are not removed may be cut off. - The hospital will not accept responsibility for valuables. - Please leave all valuables, including medications, at home the day of surgery. If you are going home after surgery, a licensed explosives truck driver must drive you home. - NO public transportation without another adult if you receive anesthesia. - We recommend that an adult stay with you for 24 hours following discharge. - We also recommend that you do not drive, make important decision, drink alcoholic beverages, or take any drugs that were not prescribed by your health care provider for at least 24 hours after your discharge time. For Pediatric surgeries, we recommend two adults accompany the child home. Follow any additional instructions given to you from your surgeon. If you or anyone in your household have experienced Covid symptoms in the past week, please notify your surgeon or the nurse liaison at the phone number below for possible testing. Telephone instructions given to Casey Law and asked if any additional questions and then verbalized understanding. Patient advised to call surgeon office or pre surgery nurse liaison [phone] if any additional questions.
--- NOTE | 2023-11-08 07:07 | ECG_ITS ---
Measurements Intervals [place] Rate: 96 P: 44 [place]: 148 QRS: 50 QRSD: 108 T: 32 QT: 354 QTc: 447 Interpretive Statements SINUS RHYTHM BASELINE ARTIFACT- I, II, V4 NORMAL ECG COMPARISON TO PRIOR ECG 12-30-19 3:01 HEART RATE HAS DECREASED Electronically Signed On 11-08-2023 14:49:56 CDT by Ho Hernandez D.O.
[2023-11-08 14:30] VITALS: BP 107/71; PULSE 105; RESP 16; TEMP 37.1; O2SAT 100
[2023-11-08] MEDS: LACTATED RINGERS 1,000 ML 30 ML IV CONT (14:30)
[2023-11-08 14:35] LABS: Glucose Point of Care 277 mg/dl (65-105)
[2023-11-08 15:06] LABS: Anion Gap 6 mmol/L (8-16); Blood Urea Nitrogen 19 mg/dL (9-20); Calcium 9.5 mg/dL (8.4-10.2); Carbon Dioxide 29 mmol/L (22-30); Chloride 103 mmol/L (98-107); Estimated CRCL calculation 133 ml/min; Estimated Glomerular Filt Rate > 60; Glucose 280 mg/dL (65-110); Potassium 4.6 mmol/L (3.4-5.0); Sodium 138 mmol/L (137-145)
--- NOTE | 2023-11-08 16:41 | WPDANESEPPF ---
Anes - Initial Pre Proc Eval Procedure: Operation Date: 11/08/23 15:00 Proposed Procedures p Incision and Drainage of Diabetic Left Foot Ulcer - Garcia Boone MD Date/Time: 11/08/23 16:41 Surgeon: Garcia Boone MD Pre Op Diagnosis: Lt Foot Ulcer, Cellulitis Patient Data Age: 28 Gender: M Height: 1.65 m Weight: 84.5 kg Last Vital Signs Temp 37.1 C 11/08/23 14:30 Pulse 105 H 11/08/23 14:30 Resp 16 11/08/23 14:30 BP 107/71 11/08/23 14:30 Pulse Ox 100 11/08/23 14:30 O2 Del Method Room Air 11/08/23 14:30 Allergies Allergy/AdvReac Type Severity Reaction Status Date / Time No Known Allergies Allergy Verified 11/08/23 14:49 Home Medications Medication Instructions Recorded Confirmed Type insulin glargine 100 unit/mL (3 22 unit (0.22 mL) subcut QHS #15 mL 09/27/23 11/08/23 Rx mL) subcutaneous pen (Basaglar KwikPen U-100 Insulin) pen needle, diabetic 32 gauge x #100 ea 09/27/23 11/05/23 Rx 5/32 (Pen Needle) Laboratory Tests 11/08/23 11/08/23 14:29 14:31 Sodium 138 mmol/L (137-145) Potassium 4.6 mmol/L (3.4-5.0) Chloride 103 mmol/L (98-107) Carbon Dioxide 29 mmol/L (22-30) Anion Gap 6 L mmol/L (8-16) BUN 19 D mg/dL (9-20) Creatinine 0.70 mg/dL (0.7-1.3) Estim Creat Clear Calc 133 ml/min Estimated GFR > 60 (59 - ) Glucose 280 H mg/dL (65-110) POC Capillary Glucose 277 H mg/dl (65-105) Calcium 9.5 mg/dL (8.4-10.2) Patient hx anesthesia problems: none Family hx anesthesia problems: none Results Review: All pre-operative results and documents have been reviewed as part of the pre-operative evaluation. [facility] Past Medical History Medical History Diabetes mellitus Obesity Surgical History Surgical History History of incision and drainage Complex repeat incision and drainage of left foot abscess 09/25/23 SAW No pertinent past surgical history Family History Family History Mother Diabetes mellitus Father Unknown family medical history Social History Social History Smoking status: Never smoker Alcohol intake: never Substance use: never Substance use type: does not use Do You Feel Safe in your Home?: Yes Lack of Transportation: No Lack of Food: Never True Current Housing: I Have Housing Concerned About Future Housing: No Difficulty Paying Gas/Electric Bills: No Difficulty Paying for Meds: No Currently Unemployed: No Education: High School Diploma/GED Difficulty w/ Childcare or Family Care: No Living arrangements: with family Occupation/Education: occupation 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 Informed Consent: The patient's anesthetic plan and its attendant risks and benefits were discussed with the patient/family/POA. Questions were solicited and answers provided to the satisfaction of the patient/family/POA.
--- NOTE | 2023-11-08 16:47 | WPDHPUPDATE1 ---
History and Physical Update Update Date/Time: 11/08/23 16:47 History and Physical has been reviewed, including an updated exam of the patient. There are NO changes in the patient's condition. Risks, benefits, and alternatives have been discussed and questions answered. Patient agrees to proceed with procedure.
[2023-11-08] MEDS: ceFAZolin SODIUM 1 GM VIAL 2 GM IV PUSH (17:03)
[2023-11-08] MEDS: LIDO 1%/EPINEPHRINE 1:100,000 50 ML VIAL 20 ML INFILTRATE (17:05)
[2023-11-08 17:30] VITALS: BP 91/50; PULSE 97; RESP 15
--- NOTE | 2023-11-08 17:31 | PM.OP ---
Procedure Note - Brief Procedure Note - Brief Date of procedure: 11/08/23 Lt Foot Ulcer, Cellulitis Procedure performed: Incision and drainage of left forefoot abscess and diabetic foot ulcer Surgeon: Garcia Boone MD Anesthesia: GETA Estimated blood loss (mL): 20 Drains: Yes (Quarter-inch Circle drains x2) Packing: Yes (Quarter-inch iodoform gauze) Pathology: None sent Complications: No immediate complications Condition: Stable Disposition: PACU
[2023-11-08 18:00] VITALS: BP 109/63; PULSE 84; RESP 14; O2SAT 99
[2023-11-08 18:06] LABS: Glucose Point of Care 208 mg/dl (65-105)
[2023-11-08 18:30] VITALS: BP 111/72; PULSE 88; RESP 14
--- NOTE | 2023-11-08 19:00 | SUR.PHASEII ---
1900 MEETS ANESTHESIA DISCHARGE CRITERIA. DISCHARGE INSTRUCTIONS GIVEN & ALL QUESTIONS ANSWERED. WAITING FOR SISTER FOR A RIDE HOME.
--- NOTE | 2023-11-11 08:06 | W.PM.PROC2 ---
Procedure Note - Detailed Date of Procedure 11/08/23 Pre-op Diagnosis Lt Foot Diabetic Ulcer, Cellulitis Post-op Diagnosis Same Procedure Performed complex incision and drainage of left diabetic foot ulcer and abscess. Surgeon Garcia Boone MD Anesthesia General Indications Patient 28-year-old uncontrolled diabetic who had prior incision and drainage of a left lateral forefoot abscess from a diabetic foot wound about 6 weeks ago. When he was discharged from the hospital he had local wound care and was instructed to follow up with a primary care physician and information was provided to him at that time for a follow-up appointment. Fortunately he has not been compliant with checking his blood sugars and has not been really taking any of his insulin. He has not seen a primary care physician for management of his diabetes since his discharge from the hospital. He returned to the office with the wound which had tried to start closing however it continued to drain some pus and appears he has not completely resolve the abscess and presents now for another incision and drainage of the left foot wound. Findings In the previous opening in the left lateral forefoot diabetic ulcer wound there was tracking medially to the mid dorsum of the forefoot and tracking to the webspace between the 4th and 5th toes. The 5th toe was still viable but it appears that the metatarsophalangeal joint is likely involved. Description of Procedure After informed consent was obtained patient brought to the operating room placed supine position and general LMA anesthesia was administered. The lower extremity from the mid tibia distally to the toes was then prepped and draped in the usual sterile fashion a circumferential manner. The site marking was then identified and confirmed during time-out as was confirmation of patient was receiving some perioperative IV antibiotics. Patient was correctly identified as well. I then proceeded to sharply debride necrotic tissue from the wound with scissors and scalpel dissection. This tissue was skin and subcutaneous tissue. Once I had all the necrotic tissue resected I then placed a Adelaida clamp through the opening and the tract to the dorsum of the mid forefoot as well as to the webspace between the 4th and 5th toes. And a counter incisions in these areas with a scalpel and then irrigated out the abscess cavity with copious amounts of sterile saline solution. The metatarsophalangeal joint of the 5th toe appeared to be involved with the process. However the 5th toe was still viable and not devitalized. At this point I then placed quarter-inch C[place]ield drains through the counter incisions and then secured them with 3-0 nylon suture in a loop configuration. The wound was then packed with quarter-inch iodoform gauze after hemostasis was achieved utilizing electrocautery. The foot was then cleaned and then a dressing to include fluffed 4x4 gauze and Kerlix gauze and an Dominick wrap was placed. The patient tolerated the procedure well no complications. All sponges, needles, and instrument counts were correct at the end procedure. EBL was _20__cc. The patient was awakened and taken to recovery in stable and satisfactory condition. At the end of the procedure I did call the patient's sister Yuridia and explained the operative findings to her on the telephone. I explained that the patient has an ongoing infection with an abscess that has not resolved after an extensive hospital course of antibiotics as well as outpatient treatment with the antibiotics. It was explained to her that is likely due to the patient's ongoing poor control of his diabetes and that he must get in to see a primary care physician to get his blood sugars under control. Otherwise it was explained to her that he will most likely lose his 5th toe and if the amputation wound does not heal then he could be at high risk for partial left foot amputation or left below-knee amputation.
== END 2023-11-08 19:10 | disposition home or self-care (01) ==
PROVIDERS: Anesthesiology; Visit Provider Surgery
PROC: (CPT 10061; principal; 2023-11-08 15:00)
DX: E11.621 Type 2 diabetes mellitus with foot ulcer (principal); L97.529 Non-pressure chronic ulcer of other part of left foot with unspecified severity; L02.612 Cutaneous abscess of left foot; E66.9 Obesity, unspecified; Z68.31 Body mass index [BMI] 31.0-31.9, adult; Z98.890 Other specified postprocedural states; Z79.4 Long term (current) use of insulin
CPT/HCPCS: 10061; 36415; 80048; 82948; 93005; J0690; J1100; J2405; J2704; J3010; J7120